=== PATIENT | female | born 1995 | race Caucasian/White ===

== ENCOUNTER 2017-10-26 15:35 | Day surgery (SDC) | payer MEDICAID, SELFPAY ==
[2017-10-26] VITALS (7 sets, daily range): BP systolic 102–122; BP diastolic 53–74; PULSE 70–99; RESP 16–18; TEMP 36.7–36.8; O2SAT 98–100; BMI 35.4
--- NOTE | 2017-10-26 16:00 | POC_PTH ---
PATIENT: ANDREA WINSLOW [place] [facility] [id number] AGE/SX: 22/F ROOM: RE10/26/[address]: Dr. Kelle Longoria MD : 1995 BED: DIS: 10/26/2017 SPEC #: [id number] RECD: 10/27/17 08:27 STATUS: CYN TYE #: [id number] TRICIA: 10/26/17 16:[address]: Kelle Longoria DEPT: SURGICAL PATHOLOGY RECD BY: Castillo Ho ENTERED: 10/27/17 09:35 SP TYPE: PROD CONC OTHR DR: Dr. Tre Castle MD Tissues: Product of conception, NOS Procedures: Surgery Specimen Level IV HEADER OPERATION: dilation and curettage, suction PRE-OP DIAGNOSIS: Incomplete missed TISSUE SUBMITTED: Products of conception MICROSCOPIC DIAGNOSIS Endometrium, curettage: Decidualized tissue, trophoblastic cells and rare chorionic villi consistent with products of conception. AM:maris 10/28/17 MICROSCOPIC DESCRIPTION Slides are reviewed. GROSS DESCRIPTION Received in fixative is one container labeled with the patient's name and designated products of conception. The specimen consists of multiple irregular fragments of pink-dyer soft tissue that in aggregate measure 8 x 7 x 0.8 cm. parts are not grossly recognized. Business Management Analyst portions are submitted in two cassettes. / AM:maris 10/27/17 TC:5 CPT: 28069
[2017-10-26 16:18] LABS: Glucose 155 mg/dL (74-106)
[2017-10-26 16:22] LABS: Hemoglobin 12.2 g/dl (12.0-15.0); Mean Corpuscular Hgb 27.5 pg (27.0-32.0); Mean Corpuscular Volume 83.5 fL (81-99); Mean Platelet Vol. 10.2 fl (6.2-12.0); Platelet Count 290 K/mm3 (150-450); RBC Distribution Width CV 13.1 % (11.6-14.6); RBC Distribution Width SD 39.3 fl (35.1-43.9); Red Blood Count 4.43 M/mm3 (4.2-5.4); White Blood Count 7.6 K/mm3 (4.4-11.0)
[2017-10-26 16:24] LABS: Scan Indicated on CBC? Y/N NO
[2017-10-26] MEDS: Doxycycline 100 MG CAPSULE PO (16:24)
[2017-10-26] MEDS: Ketorolac 60 MG/2 ML Vial IM (16:24)
--- NOTE | 2017-10-26 16:58 | PCM.DC.D&C ---
Discharge Diet: No Restrictions Discharge Activity: Return to Normal Activity, May Shower, May Take a Tub Bath - in 2 weeks. May resume sexual activity in: 2 weeks Call your doctor if you observe: Fever of 101 or Higher, Inability to urinate, Using more than one pad per hour, Dizziness, Uncontrolled pain Allergies/Adverse Reactions: Allergies No Known Allergies Allergy (Verified 06/03/17 13:32) Medications to take at Discharge Metformin HCl [Glucophage] 2,000 mg PO BID 06/03/17 Hydrocodone/Acetaminophen [[place] 5-325 Tablet] 1 each PO 10/26/17 Insulin NPH Human 10 units SC BID 10/26/17 Novolog Flexpen 8 units SC TIDCM 10/26/17 Primary Care Physician: Tre Castle MD [Primary Care Provider] - Please Follow Up With: Kelle Longoria MD - [phone] When: 2-4 weeks or as needed
--- NOTE | 2017-10-26 17:03 | OP.PCM_ITS ---
Report of Operation Date of Procedure: 10/26/17 Pre-Operative Diagnosis: Incomplete spontaneous . 8 weeks gestational age Post-Operative Diagnosis: Same Surgery/Procedure Performed:: Suction dilation and curettage Description of Surgical Findings:: Normal-appearing cervix and vagina, heterogeneous debris from the uterus reprographics associate: Chloe humphries [email or web address] Type of Anesthesia:: MAC/Supplemental/Local Anesthesiologist: Darlin Smith Special Medications: none Specimen's removed: Endometrial curettings Drains: None Estimated Blood Loss (mL): 10 cc Fluids Replaced: 300cc lr Description of Procedure: The patient was taken to the operating room where she was prepped and draped in a dorsolithotomy position. A bimanual examination was done and confirmed the uterus to be 6 weeks size and anteverted. A weighted speculum was placed in the vagina and the anterior lip of the cervix was grasped with a single-tooth tenaculum. The cervix was dilated serially. A 8 mm suction curette was placed to the uterine fundus and the suction was created. Several passes were made to remove a moderate amount of organized clots and what appeared to be products of conception. When minimal tissue was returning a gentle sharp curettage was then done of the uterine cavity. The uterine cry was appreciated and another gentle pass was made with the suction curette. At this point there is no active bleeding from the uterus and minimal blood and no further products of conception were removed. The instruments removed from the cervix and the cervix was observed and no active bleeding was identified. The tenaculum was removed off the cervix and hemostasis of the tenaculum site was assured. Made of the instruments removed from the vagina and the vaginal sweep was completed by me. Sponge and needle counts were correct. The patient was taken to the recovery room in stable condition. Findings: 6 week size uterus, normal cervix and vagina. Specimen: Products of conception Grafts/Implants Used: none - Complications none - Admit VTE Documentation VTE Present on Admission: No VTE Mechan Device Prophylaxis: SCD's VTE Pharm Prophylaxis ordered?: No Reason prophylaxis not ordered:: Procedure Not Indicated
== END 2017-10-26 17:50 | disposition home or self-care (01) ==
LOC: SDC 15:35 → AC 15:36
PROVIDERS: Family Provider Internal Medicine; PCP Internal Medicine; Visit Provider Obstetrics & Gynecology
PROC: (CPT 59812; principal; 2017-10-26 15:45)
DX: O03.4 Incomplete spontaneous abortion without complication (principal); E11.9 Type 2 diabetes mellitus without complications; E66.9 Obesity, unspecified; Z68.35 Body mass index [BMI] 35.0-35.9, adult; Z79.4 Long term (current) use of insulin; Z79.84 Long term (current) use of oral hypoglycemic drugs; F17.200 Nicotine dependence, unspecified, uncomplicated
CPT/HCPCS: 01965; 59812; 82947; 85027; 86850; 86900; 88305; J7120

== ENCOUNTER 2018-08-16 16:43 | Emergency (ER) | payer MEDICAID, SELFPAY ==
[2018-08-16 16:44] VITALS: BP 121/96; PULSE 114; RESP 18; TEMP 37.2; O2SAT 98; BMI 31.1
[2018-08-16] MEDS: Ondansetron 4 MG/2 ML Vial IV (17:35)
[2018-08-16] MEDS: 0.9% Normal Saline 1,000 ML 1000 ML IV (17:35)
[2018-08-16 17:40] VITALS: BP 124/93; PULSE 83; RESP 10; O2SAT 98
[2018-08-16 17:46] LABS: Absolute Lymphocyte Count 3.99 X10^3/ul (0.83-4.51); Basophil# 0.03 X10^3/uL; Basophil% 0.3 % (0-1); Eosinophil# 0.08 X10^3/uL; Eosinophils% 0.9 % (0-5); Hematocrit 45.6 % (37-47); Lymphocyte # 3.99 X10^3/ul (4.0); Lymphocyte % 44.5 % (19-41); Mean Corp Hgb Conc 32.9 g/gl (32-36); Mean Corpuscular Hgb 27.1 pg (27.0-32.0); Mean Corpuscular Volume 82.5 fL (81-99); Monocyte# 0.87 X10^3/uL; Monocyte% 9.7 % (0-10); Neutrophil # 3.98 X10^3/uL (2.7-7.7); Neutrophil % 44.4 % (47-70); Platelet Count 302 K/mm3 (150-450); RBC Distribution Width CV 13.6 % (11.6-14.6); RBC Distribution Width SD 40.9 fl (35.1-43.9); Red Blood Count 5.53 M/mm3 (4.2-5.4)
--- NOTE | 2018-08-16 17:50 | ED.DCSUM_ITS ---
- ER Visit Summary Date of Service: 08/16/18 Chief Complaint: [Hyperglycemia] History of Present Illness: The patient is a 22 F [presents to the emergency department with elevated blood sugars. Patient states that she was not feeling well today and that she had vomiting x3 and about 6 episodes of watery stool. Patient today has been feeling shaky and just wanting to sleep. Patient states that she stopped taking her diabetic medication 6 months ago. Patient normally on Humalog as well as metformin and NovoLog. Patient states that she lost a baby and that got her down and feeling depressed and so she stopped taking her medications. Patient denies feeling suicidal or wanting to harm herself. She denies any auditory or visual hallucinations. Last menstrual period was last week. Patient describes decreased urine output.] Physical Examination: [HEENT-PERRLA, EOMI. Cranial nerves II through XII grossly intact. TMs clear. Mucous membranes moist. No adenopathy. Cardiovascular-regular rate and rhythm without murmur or ectopy Lungs-clear to auscultation, chest wall stable without crepitus or subcu emphysema Abdomen-normoactive bowel sounds, soft, nontender, no rebound or rigidity, no peritoneal signs. Extremities-intact ?4, normal range of motion, normal pulses, atraumatic] Test Results: [CBC with differential showed a white count 9.0, hemoglobin 15, hematocrit 45.6, placed 302. Chemistries unremarkable. Glucose was 276. Urinalysis was unremarkable. Acetone was negative.] Emergency Department Course and Treatment: [Patient was given a liter normal same fluid bolus. Patient was advised to take her medications. Patient states that she just had them filled last week and has the insulin at home as well as the metformin. Patient will be given a referral to primary care physician alternative medicine practitioner for no doc.] Treatment Plan: [Patient advised on the importance of managing her blood glucose and will be referred to primary care physician alternative medicine practitioner for no doc for follow-up .] Disposition: [Discharged home in stable condition] Impression: [Hyperglycemia-noncompliant with medication Viral gastroenteritis] This note was generated with [employer] software. It may contain incorrect words, spelling, and punctuation that were not noted in review of the chart prior to signing ED Disposition - Plan for ED Patient: Referrals: Care Physician,No Primary [Primary Care Provider] -
[2018-08-16 17:52] LABS: Mucous, Urine 0 SEEN /hpf (<or=2+); Red Blood Cells-Urine 0 SEEN /hpf (0-5); White Blood Cells 0 SEEN /hpf (0-5)
[2018-08-16 17:54] LABS: Anion Gap 6 (5-15); BUN 15 mg/dL (7-18); BUN/Creat Ratio 21.4 RATIO (10-20); Calcium,Total 9.3 mg/dL (8.5-10.1); Chloride 102 mmol/L (98-107); EST Glomerular Filtration Rate 110 mL/min (>60); Est Glom Filt Rate - Afr Amer 133 mL/min (>60); Estimated Creatinine Clearance 127.17 ml/min; Glucose 276 mg/dL (74-106); Potassium 3.8 mmol/L (3.5-5.1); Sodium Level 135 mmol/L (136-145)
[2018-08-16 17:54] LABS: Color, Urine Straw (Yellow); Glucose, Dipstick 1000 mg/dl (Normal); Ketone-Dipstick 5 mg/dl (Negative); Leukocyte Esterase-Dipstick Negative /ul (Negative); Nitrite-Dipstick Negative (Negative); Occult Blood-Urine Negative /ul (Negative); Protein-Dipstick Negative (Negative); Urine Bilirubin Dipstick Negative (Negative); Urine Clarity Clear (Clear); Urine Urobilinogen Normal (Normal)
[2018-08-16 17:55] LABS: POSITIVE COUNT NO; POSITIVE DIFFERENTIAL NO; POSITIVE MORPHOLOGY NO
[2018-08-16 18:06] LABS: Bacteria RARE /hpf (None Seen); Squamous Epithelial Cells - UA 0-5 SEEN /hpf (5-10); Yeast-Urine RARE /hpf (None Seen)
--- NOTE | 2018-08-16 18:19 | ED.DEP ---
ED Disposition - Plan for ED Patient: Instructions: ED Hyperglycemia Diabetic, ED Gastroenteritis Viral Prescriptions: Ondansetron [Zofran Odt] 4 mg PO Q8H PRN PRN #10 tab PRN Reason: Nausea Referrals: Care Physician,No Primary [Primary Care Provider] - Johnnie Conti MD [STAFF PHYSICIAN] - 3-5 Days
[2018-08-16 18:37] VITALS: BP 120/91; PULSE 85; RESP 20; O2SAT 100
[2018-08-16 19:12] LABS: Pregnancy, Serum, hCG Quali. NEGATIVE Negative (0-9 Nonpreg)
== END 2018-08-16 18:39 | disposition home or self-care (01) ==
PROVIDERS: Emergency Provider Emergency Medicine
DX: E11.65 Type 2 diabetes mellitus with hyperglycemia (principal); T38.3X6A Underdosing of insulin and oral hypoglycemic [antidiabetic] drugs, initial encounter; Z91.138 Patient's unintentional underdosing of medication regimen for other reason; Y92.9 Unspecified place or not applicable; Z79.4 Long term (current) use of insulin; A08.4 Viral intestinal infection, unspecified; Z72.0 Tobacco use
CPT/HCPCS: 80048; 81001; 82009; 84703; 85025; 96361; 96374; 99284; J7030; A4216; J2405

== ENCOUNTER 2018-09-22 16:27 | Emergency (ER) | payer MEDICAID, SELFPAY ==
[2018-09-22 16:27] VITALS: BP 125/89; PULSE 95; RESP 16; TEMP 36.7; O2SAT 98; BMI 15.7
--- NOTE | 2018-09-22 16:47 | ED.DCSUM_ITS ---
- ER Visit Summary Date of Service: 09/22/18 Chief Complaint: Dysuria History of Present Illness: The patient is a 23 F who presents with dysuria that has been getting worse over the past week. Patient states that has gotten worse over the past couple days. Patient states she has burning when she urinates. Patient admits to some mild white vaginal discharge that is thick. Patient is unsure if she has a urinary tract infection or yeast infection. Patient does admit to some urinary frequency. She admits to some nausea but denies any vomiting. Physical Examination: Vital signs are stable. Patient is afebrile. Patient is in no acute distress. Oral mucosa is pink and moist. Neck is supple. Trachea is midline. Heart was regular rate and rhythm. Lungs are clear and equal bilateral. Abdomen is soft. Bowel sounds are normal. There is suprapubic tenderness. There is no rebound or guarding noted. Cranial nerves II through XII are intact. There are no focal motor or sensory deficits noted. Test Results: Urinalysis and urine hCG were obtained. Urinalysis showed leukocyte esterase of 500 with 25-50 white blood cells. Urine hCG was negative. Emergency Department Course and Treatment: Patient was given a prescription for Bactrim. Patient was also given a prescription for Diflucan to take after she is done with the Bactrim given that she is diabetic and likely prone to vaginal candidiasis after antibiotic treatment. Patient was instructed to follow-up with her primary care physician in 5-7 days. Patient understood and was agreeable with the plan. All questions were answered. Disposition: Discharge home Impression: Urinary tract infection This note was generated with [employer] dictation software. It may contain incorrect words, spelling, and punctuation that were not noted in review of the chart prior to signing ED Disposition - Plan for ED Patient: Disposition: Home or Assisted Living Diagnosis: Urinary tract infection Instructions: ED UTI Cystitis Female Prescriptions: Fluconazole [Diflucan] 150 mg PO X1 1 Days #1 tab Smz/Tmp Ds [Bactrim Ds] 1 tab PO BID #6 tab Referrals: Care Physician,No Primary [Primary Care Provider] - 5-7 Days
[2018-09-22 16:54] LABS: Bacteria 0 SEEN /hpf (None Seen); Mucous, Urine 0 SEEN /hpf (<or=2+)
[2018-09-22 17:01] LABS: Internal QC Validated? YES +Cl - CLEAR BKGD; Pregnancy, Urine Negative Negative
[2018-09-22 17:07] LABS: Color, Urine Yellow (Yellow); Glucose, Dipstick 1000 mg/dl (Normal); Ketone-Dipstick 50 mg/dl (Negative); Leukocyte Esterase-Dipstick 500 /ul (Negative); Nitrite-Dipstick Negative (Negative); Occult Blood-Urine 250 /ul (Negative); Protein-Dipstick 30 mg/dl (Negative); Urine Bilirubin Dipstick Negative (Negative); Urine Clarity Cloudy (Clear); Urine Urobilinogen Normal (Normal)
[2018-09-22 17:08] LABS: Red Blood Cells-Urine 10-25 SEEN /hpf (0-5); Squamous Epithelial Cells - UA 5-10 SEEN /hpf (5-10); White Blood Cells 25-50 SEEN /hpf (0-5)
== END 2018-09-22 18:08 | disposition home or self-care (01) ==
PROVIDERS: Emergency Provider Emergency Medicine
DX: N39.0 Urinary tract infection, site not specified (principal); E11.9 Type 2 diabetes mellitus without complications; Z79.4 Long term (current) use of insulin; Z72.0 Tobacco use
CPT/HCPCS: 81001; 81025; 99282

== ENCOUNTER 2018-09-25 22:26 | Emergency (ER) | payer MEDICAID, SELFPAY ==
[2018-09-25 22:27] VITALS: BP 105/72; PULSE 89; RESP 15; TEMP 36.6; BMI 32.4
[2018-09-25 23:19] LABS: Color, Urine Yellow (Yellow); Glucose, Dipstick 1000 mg/dl (Normal); Ketone-Dipstick 15 mg/dl (Negative); Leukocyte Esterase-Dipstick 500 /ul (Negative); Nitrite-Dipstick Negative (Negative); Occult Blood-Urine 250 /ul (Negative); Protein-Dipstick 30 mg/dl (Negative); Urine Bilirubin Dipstick Negative (Negative); Urine Clarity Sl. Cloudy (Clear); Urine Urobilinogen 1 mg/dl (Normal)
[2018-09-25 23:27] LABS: Red Blood Cells-Urine 10-25 SEEN /hpf (0-5); White Blood Cells 25-50 SEEN /hpf (0-5)
[2018-09-25 23:28] LABS: Bacteria 1+ /hpf (None Seen); Mucous, Urine 1+ /hpf (<or=2+); Squamous Epithelial Cells - UA 0-5 SEEN /hpf (5-10)
--- NOTE | 2018-09-25 23:55 | ED.VISSUMM ---
- ER Visit Summary Date of Service: 09/25/18 Chief Complaint: UTI History of Present Illness: The patient is a 23 F with dysuria and frequency for the past 2 weeks. She was seen in the ER on the for the same. She was given 3-day course of Bactrim for UTI and states she will has 1 dose left. She presents with increased super pubic pain and continued dysuria and frequency. She denies fever. She denies back pain. Patient is a diabetic. She states she does not check her blood sugars. Physical Examination: Vital signs unremarkable. Patient is lying in bed no acute distress. Heart is regular rate and rhythm. Lungs sounds are clear. Abdomen is soft with suprapubic tenderness to palpation. No guarding or rebound. Back examination was no CVA tenderness. Test Results: Urinalysis tonight shows 25-50 white cells, 10-25 RBCs, 1+ bacteria. She has 15 ketones. Urine is essentially unchanged when compared to sample from 3 days ago. BG T is 265. Emergency Department Course and Treatment: Patient is given a liter IV fluids along with a dose of IV Rocephin. Urine tonight is sent for culture. She is given Pyridium for pain. She will be given a course of Macrobid. If her urine culture shows this would not be effective she will receive a phone call and appropriate medication adjustments will be made. She is referred to local primary care physician for establishment of care. Treatment Plan: [] Disposition: Discharge Impression: Cystitis This note was generated with [employer] dictation software. It may contain incorrect words, spelling, and punctuation that were not noted in review of the chart prior to signing ED Disposition - Plan for ED Patient: Referrals: Care Physician,No Primary [Primary Care Provider] -
[2018-09-26] MEDS: Ceftriaxone 1 GM/50 ML BAG IV (00:04)
[2018-09-26] MEDS: Phenazopyridine 95 MG Tablet 190 MG PO (00:09)
[2018-09-26] MEDS: 0.9% Normal Saline 1,000 ML 1000 ML IV (00:09)
[2018-09-26 00:11] LABS: Bedside Glucose 265 mg/dL (70-110)
--- NOTE | 2018-09-26 00:44 | ED.DEP ---
ED Disposition - Plan for ED Patient: Disposition: Home or Assisted Living Instructions: ED UTI Cystitis Female Prescriptions: Nitrofurantoin Macrocrystals [Macrobid] 100 mg PO Q12 #14 capsule Phenazopyridine HCl [Pyridium] 200 mg PO BID PRN PRN #10 tablet PRN Reason: Pain Referrals: Matthew Finney MD [STAFF PHYSICIAN] - 1-2 Weeks
[2018-09-26 02:05] VITALS: BP 105/78; PULSE 67; RESP 16
== END 2018-09-26 02:06 | disposition home or self-care (01) ==
PROVIDERS: Emergency Provider Emergency Medicine
DX: N30.90 Cystitis, unspecified without hematuria (principal); E11.9 Type 2 diabetes mellitus without complications; Z79.4 Long term (current) use of insulin; Z79.84 Long term (current) use of oral hypoglycemic drugs; Z72.0 Tobacco use
CPT/HCPCS: 81001; 82962; 87086; 87088; 96365; 99283; J7030

== ENCOUNTER 2019-01-12 12:15 | Day surgery (SDC) | payer MEDICAID, SELFPAY ==
--- NOTE | 2019-01-10 12:20 | PCM.HP.BLA ---
History and Physical Date of Admission: 01/10/19 Pre-Op History and Physical HPI: The patient is a 23 year old female presenting for pre-operative visit. She is scheduled for suction dilation and curettage, for 8 week missed , measuring 7 weeks size by crown-rump length on 01/12/19. Procedure discussed along with risks, benefits and complications. Other alternatives discussed for management. Consent form signed? Yes. PAST MEDICAL HISTORY Diagnosis Date ? Abnormal Pap smear of cervix 06/2017 ASCUS pap + HPV ? Asthma ? depression ? Diabetes mellitus type 2, uncontrolled, without complications ([facility]) Sees Endo: DANIEL Orourke ? GERD (gastroesophageal reflux disease) ? IBS (irritable bowel syndrome) ? Obesity (BMI 30-39.9) 10/05/2017 ? 10/2017 Pt states that she is 11 weeks ? Type II or unspecified type diabetes mellitus without mention of complication, not stated as uncontrolled PAST SURGICAL HISTORY Procedure Laterality Date ? EGD W/O BRSH SPECIMEN W/BX 01/02/14 minimal gastritis ? EGD W/O OR W/BRUSH/WASH 09/05/2014 EGD ? LAP CHOLECYSTECT/CHOLANGIOGRAPHY 01/16/14 normal IOC ? PAST SURGICAL HISTORY OF 2011 Ovarian cysts removed ? SURG RX INCOMPLETE ABORTN 10/26/2017 Suction D&C, bleeding and pain after cytotec Current Outpatient Medications Medication Sig Dispense Refill ? miSOPROStol (CYTOTEC) 200 mcg tablet Use 2 tablets vaginally as directed for [address] 2 tablets vaginally the morning of the procedure 2 tablet 0 ? doxycycline monohydrate (MONODOX) 100 mg capsule Take 1 capsule by mouth twice daily for 1 day. take one at bedtime after surgery and one the next morning with breakfast 2 capsule 0 ? ibuprofen (MOTRIN) 600 mg tablet Take 1 tablet by mouth every 6 hours as needed. FOR PAIN. 30 tablet 0 ? insulin lispro (HUMALOG) 100 unit/mL injection Inject 0-5 Units subcutaneously daily at bedtime. 1 Vial 1 ? insulin lispro (HUMALOG) 100 unit/mL injection Inject 1-5 Units subcutaneously w MEALS. 1 Vial 1 ? ciprofloxacin (CILOXAN) 0.3 % Use 4 Drops in the right ear twice daily. 1 Bottle 1 ? insulin NPH human (NOVOLIN N, HUMULIN N) injection Inject 8 Units subcutaneously twice daily with meals. 3 Vial 1 ? insulin NPH human (NOVOLIN N, HUMULIN N) injection Inject 8 Units subcutaneously before breakfast and 8 Units before dinner 2 Vial 1 ? multivitamin (CLASSIC ) 28 mg iron- 800 mcg tab(s) Take 1 tablet by mouth once daily. ? albuterol HFA (PROVENTIL HFA, VENTOLIN HFA) 90 mcg/actuation inhaler Inhale 2 Puffs as instructed every 4 hours as needed for Wheezing/Shortness of Breath. 1 Inhaler 0 ? Insulin [place], Disposable, (BD ULTRAFINE III MINI PEN) 31 gauge x 3/16 ndle USE WITH INSULIN PENS 4 TIMES DAILY 200 Each 5 ? blood sugar diagnostic (BLOOD GLUCOSE TEST) test strip Test blood glucose 8 times daily 200 Strip 5 ? Lancets lancets Test blood sugar(s) 8x daily. 200 Each 5 ? insulin syringe-needle U-100 (BD INSULIN SYRINGE ULTRA-FINE) 1 mL 31 gauge x 15/64 syrg 1 Each once daily. 100 Syringe 3 No current facility-administered medications for this visit. ALLERGIES: Metformin PERSONAL HISTORY: Social History Socioeconomic History Marital status: Single Spouse name: Not on file Number of children: 0 Years of education: 13 Highest education level: Not on file Social Needs Financial resource strain: Not on file Food insecurity - worry: Not on file Food insecurity - inability: Not on file Transportation needs - medical: Not on file Transportation needs - non-medical: Not on file Occupational History Occupation: unemployed Tobacco Use Smoking status: Current Some Day Smoker Packs/day: 0.20 Years: 2.00 Pack years: .4 Smokeless tobacco: Never Used Tobacco comment: 3 cigs a day Substance and Sexual Activity Alcohol use: Not Currently Comment: once or twice a month Drug use: No Sexual activity: Yes Partners: Male control/protection: None Other Topics Concerns: Not on file Social History Narrative Merged History Encounter FAMILY HISTORY: FAMILY HISTORY Problem Relation Age of Onset ? Cancer Maternal Grandmother started off with lung cancer now ? Breast Cancer Maternal Grandmother ? Heart Maternal Grandfather now ? Diabetes Maternal Grandfather ? Heart Paternal Grandmother ? Hypertension Paternal Grandmother ? Diabetes Paternal Grandmother ? other (strokes) Paternal Grandmother ? Hypertension Paternal Grandfather ? Heart Paternal Grandfather ? Diabetes Paternal Grandfather ? other (borderline diabetes) Paternal Grandfather ? other (? PR) Paternal Grandfather ? Diabetes Mother ? Heart Mother extra valve ? Asthma Father ? Asthma Brother ? Breast Cancer Maternal Aunt ? Colon Cancer No Family History REVIEW OF SYMPTOMS: GENERAL: denies fevers or chills ENDOCRINOLOGY: has not been on steroids Cardiology : denies palpitations or chest pain Respiratory: denies SOB or cough Hematology: denies history of prolonged bleeding or easy bruising or VTE Allergy: Denies history of personal or family history of allergy to anesthesia PHYSICAL EXAMINATION: VITALS: Blood pressure 110/62, height 5' 6 (1.676 m), weight 192 lb (87.1 kg), last menstrual period 11/10/2018. GENERAL: The patient is well nourished, well hydrated in no acute distress. , The patient is oriented to time, place, and person. NECK: Supple. No lynphadenopathy, normal thyroid, no thyromegaly. LUNGS: Clear to auscultation bilaterally. no wheezes, rhonchi or rales HEART: Regular rate and rhythm, Normal heart sounds and No murmurs or gallops GENITALIA: Normal external genitalia, Urethral meatus normal, Bladder nontender, normal vagina and normal vaginal tone, normal cervix, normal adnexa without masses or tenderness, perineum WNL and uterus mobile, nontender, approximate week size IMPRESSION: 23 YOF @ 8w5d on 01/10/19 by LMP w/ 7 week size embryo w/o cardiac activity, spontaneous missed PLAN: The risks/benefits/alternatives and personal involved for the planned suction dilation and curettage were reviewed with the patient. Her questions were answered to her satisfaction and she desires to proceed. Consent was signed. I reviewed with her postop instructions and expectations. I have reviewed and updated past medical and surgical history, medications and allergies This H&P was completed in my office on 01/10/19 Kelle Longoria M.D.
[2019-01-12 12:51] LABS: Hematocrit 41.2 % (37-47); Hemoglobin 14.2 g/dl (12.0-15.0); Mean Corp Hgb Conc 34.5 g/gl (32-36); Mean Corpuscular Volume 81.1 fL (81-99); Mean Platelet Vol. 10.5 fl (6.2-12.0); Platelet Count 381 K/mm3 (150-450); RBC Distribution Width CV 13.5 % (11.6-14.6); RBC Distribution Width SD 39.1 fl (35.1-43.9); Red Blood Count 5.08 M/mm3 (4.2-5.4); White Blood Count 10.5 K/mm3 (4.4-11.0)
[2019-01-12] MEDS: Acetaminophen 500 MG Tablet 1000 MG PO (12:54)
[2019-01-12] MEDS: Ketorolac 30 MG/ML Syringe IV (12:54)
[2019-01-12] MEDS: Doxycycline 100 MG CAPSULE PO (12:55)
[2019-01-12 12:58] VITALS: BP 120/76; PULSE 93; RESP 14; TEMP 37.9; O2SAT 100; BMI 31.6
[2019-01-12 12:59] LABS: Anion Gap 5 (5-15); BUN 8 mg/dL (7-18); Calcium,Total 9.3 mg/dL (8.5-10.1); Chloride 105 mmol/L (98-107); Creatinine, Serum 0.57 mg/dL (0.55-1.02); EST Glomerular Filtration Rate 139 mL/min (>60); Est Glom Filt Rate - Afr Amer 169 mL/min (>60); Glucose 135 mg/dL (74-106); Potassium 3.9 mmol/L (3.5-5.1); Scan Indicated on CBC? Y/N NO; Sodium Level 137 mmol/L (136-145)
[2019-01-12 13:20] LABS: Bedside Glucose 127 mg/dL (70-110)
--- NOTE | 2019-01-12 14:05 | POC_PTH ---
PATIENT: ANDREA WINSLOW LOC: [facility] – [place] U#:[id number] AGE/SX: 23/F ROOM: RE01/12/[address]: Dr. Kelle Longoria MD : 1995 BED: DIS: 01/12/2019 SPEC #: [id number] RECD: 01/12/19 16:45 STATUS: CYN GRAHAMJessica #: [id number] TRICIA: 01/12/19 14:[address]: Kelle Longoria DEPT: SURGICAL PATHOLOGY RECD BY: Castillo Ho ENTERED: 01/13/19 11:33 SP TYPE: PROD CONC OTHR DR: Dr. Tre Castle MD Tissues: Product of conception, NOS Procedures: Surgery Specimen Level IV HEADER OPERATION: Dilation and curettage, suction PRE-OP DIAGNOSIS: Missed TISSUE SUBMITTED: Products of conception MICROSCOPIC DIAGNOSIS Endometrium, curettage: Chorionic villi, decidualized stroma and trophoblastic cells consistent with products of conception. AM:maris 01/16/19 MICROSCOPIC DESCRIPTION Slides are reviewed. GROSS DESCRIPTION Received in fixative is one container labeled with the patient's name and designated products of conception. The specimen consists of multiple irregular fragments of light dyer soft tissue that in aggregate measure 6 x 6 x 0.8 cm. parts are not grossly recognized. Histology Aide portions are submitted in one cassette. / AM:maris 01/13/19 TC:5 CPT: 94565
--- NOTE | 2019-01-12 15:02 | DCINST_ITS ---
Discharge Diet: No Restrictions Discharge Activity: Return to Normal Activity, May Shower, May Take a Tub Bath - in 1 weeks. May resume sexual activity in: 1-2 weeks Call your doctor if your incision/area has: Continuous Slow Oozing, Sudden Increased Bleeding, Foul Smelling Discharge Call your doctor if you observe: Fever of 101 or Higher, Using more than one pad per hour Allergies/Adverse Reactions: Allergies No Known Allergies Allergy (Verified 01/11/19 08:41) Medications to take at Discharge metFORMIN HCl [Glucophage] 2,000 mg PO DAILY 06/03/17 Primary Care Physician: Tre Castle MD [Primary Care Provider] - Test Results: Test results from this visit will be discussed in further detail at your follow- up appointment, if applicable. Please Follow Up With: Kelle Longoria MD - [phone] When: 2-4 weeks or as needed
--- NOTE | 2019-01-12 15:16 | PCM.OPRPT ---
Report of Operation Date of Procedure: 01/12/19 Pre-Operative Diagnosis: missed spontaneous , 8 weeks Post-Operative Diagnosis: Same Surgery/Procedure Performed:: Suction dilation and curettage Description of Surgical Findings:: Normal-appearing cervix and vagina. manufacturers service representative: None Type of Anesthesia:: MAC/Supplemental/Local Anesthesiologist: Alyx Gonzales Special Medications: None Specimen's removed: Products of conception Drains: none Estimated Blood Loss (mL): 20 Fluids Replaced: 1000 cc Description of Procedure: The patient was taken to the operating room where she was prepped and draped in a dorsolithotomy position. A bimanual examination was done and confirmed the uterus to be 8 weeks size and anteverted. A weighted speculum was placed in the vagina and the anterior lip of the cervix was grasped with a single-tooth tenaculum. The cervix was dilated serially. A 9 mm suction curette was placed to the uterine fundus and the suction was created. Several passes were made to remove clots and products of conception. When minimal tissue was returning a gentle sharp curettage was then done of the uterine cavity. The uterine cry was appreciated and another gentle pass was made with the suction curette. At this point there is no active bleeding from the uterus and minimal blood and no further products of conception were removed. The instruments removed from the cervix and the cervix was observed and no active bleeding was identified. The tenaculum was removed off the cervix and hemostasis of the tenaculum site was assured. Made of the instruments removed from the vagina and the vaginal sweep was completed by me. Sponge and needle counts were correct. The patient was taken to the recovery room in stable condition. Blood type was A+ Findings: 8 week size uterus, normal cervix and vagina. Specimen: Products of conception Grafts/Implants Used: none - Complications none - Admit VTE Documentation VTE Present on Admission: No VTE Mechan Device Prophylaxis: SCD's VTE Pharm Prophylaxis ordered?: No Reason prophylaxis not ordered:: Procedure Not Indicated
[2019-01-12 15:20] VITALS: BP 120/79; BP 96/53; PULSE 97; RESP 16; TEMP 36.8; O2SAT 96
[2019-01-12 15:25] VITALS: BP 120/79; BP 92/53; PULSE 97; RESP 18; O2SAT 95
[2019-01-12 15:30] VITALS: BP 120/79; BP 90/58; PULSE 88; RESP 16; O2SAT 95
[2019-01-12 15:35] VITALS: BP 120/79; BP 94/53; PULSE 88; RESP 18; TEMP 36.6; O2SAT 96
[2019-01-12 16:30] VITALS: BP 120/79
== END 2019-01-12 16:38 | disposition home or self-care (01) ==
LOC: SDC 12:15 → AC 12:17
PROVIDERS: Family Provider Internal Medicine; PCP Internal Medicine; Referring Provider Obstetrics & Gynecology; Visit Provider Obstetrics & Gynecology
PROC: (CPT 59820; principal; 2019-01-12 13:50)
DX: O02.1 Missed abortion (principal); E11.9 Type 2 diabetes mellitus without complications; K58.9 Irritable bowel syndrome, unspecified; J45.909 Unspecified asthma, uncomplicated; K21.9 Gastro-esophageal reflux disease without esophagitis; O99.331 Smoking (tobacco) complicating pregnancy, first trimester; F17.210 Nicotine dependence, cigarettes, uncomplicated; E66.9 Obesity, unspecified; Z68.31 Body mass index [BMI] 31.0-31.9, adult; Z79.84 Long term (current) use of oral hypoglycemic drugs
CPT/HCPCS: 01965; 59820; 36415; 80048; 82962; 85027; 86850; 86900; 88305; J7120; J2405

== ENCOUNTER 2019-02-24 09:48 | Emergency (ER) | payer MEDICAID, SELFPAY ==
[2019-02-24 09:50] VITALS: BP 125/79; PULSE 80; RESP 17; TEMP 37; O2SAT 99; BMI 32.9
--- NOTE | 2019-02-24 09:59 | RAD_ITS ---
STUDY: X-RAY - LEFT KNEE REASON FOR EXAM: Female, 23 years old. Pain for a few days TECHNIQUE: 4 view(s) of the knee. COMPARISON: None. FINDINGS: Normal visualized distal femur. Normal visualized proximal tibia and fibula. Normal proximal tibiofibular articulation. Normal medial femorotibial compartment. Normal lateral femorotibial compartment. Normal patellofemoral articulation. The soft tissue structures are unremarkable. RAD/Knee 4 or More Views IMPRESSION: Normal x-ray examination of the knee. No acute displaced fracture, or traumatic subluxation based on current assessment. Electronically Signed: Cesar Singh MD at 10:34 EDT Tel [phone], Service support ,
--- NOTE | 2019-02-24 10:00 | ED.VIS.INJ ---
History of Present Illness Chief Complaint: Lower Extremity Injury Detail of Chief Complaint: The pain Wednesday injury yesterday Informant: Patient Onset: Yesterday, Days Mechanism/Context: Blunt Injury, Work Related Quality of Pain: Dull, Aching Location: Left knee Current Severity: Mild Maximum Severity: Severe Worsened by: Movement and ambulation Relieved by: Nonuse Associated Symptoms: Negative for: Parasthesias, Weakness, Loss of function, Inability to ambulate, Loss of consciousness, Amnesia Narrative: Patient is a 23-year-old woman who states her left knee began to hurt Wednesday. She slipped hitting a spool at work. She localizes the pain to the left knee. She denies history of prior knee injury. There is no history of gout or pseudogout. She denies fever, chills night sweats. She is on no immunosuppressive agents. Patient has not taken anything for the pain prior to arrival. Tetanus Immunization: 5-10 years Prior similar symptoms: No Recent Illness/Hospitalization: No - Past Medical History (1) No significant past medical history Status: Acute Past Medical History - Allergies and Home Meds Allergies/Adverse Reactions: Allergies No Known Allergies Allergy (Verified 02/24/19 09:49) Primary Care Physician: Tre Castle MD [Primary Care Provider] - Past Medical History: None Surgical History: no surgical history Lives: With Family Smoking Status: Light Smoker (<10/day) Alcohol: None Drugs: None Review of Systems General: Denies: Chills, Fever, Malaise, Subjective, Sweats, Weight loss, - ENT: Denies: Rhinorrhea, Sore throat Cardiovascular: Denies: Chest pain, Palpitations Respiratory: Denies: Dyspnea, Cough, Sputum, Dyspnea on exertion Gastrointestinal: Denies: Nausea, Vomiting Genitourinary: Reports: -. Denies: Dysuria, Hematuria, Frequency Musculoskeletal: Reports: Swelling, Extremity Pain. Denies: Myalgias, Arthralgias, Neck pain, Back pain Skin: Reports: - - Evidence of contusion left knee lateral joint line. Denies: Rash, Wounds Neurological: Denies: Headache, Weakness, Parasthesia, Numbness Hematologic: Denies: Easy bruising, Easy bleeding Physical Exam Vital Signs/Narrative: Vital Signs Temp Pulse Resp BP Pulse Ox 02/24/19 09:50 98.6 F 80 17 125/79 H 99 Inital Vital Signs reviewed: Yes General: Well nourished, Well developed Head: Normocephalic, Atraumatic Eyes: Perrl, EOMI. Negative for: Pale conjunctiva, Scleral icterus, - Neck: Nontender, Full ROM Cardiovascular: Regular rate, Regular rhythm, No murmurs, Normal S1 Respiratory: No distress, CTA bilaterally Extremeties: There is swelling in the left knee compared to the right. There is lateral joint line tenderness. There is no obvious effusion. Patella is not ballotable. There is valgus stress testing causes discomfort laterally without laxity. Sayra's test is negative. Modified Milli's test caused pain with no appreciable click. There is no penetration of the popliteal fossa. Skin: Normal color, Trauma Neurological: Alert, Oriented x3, Cranial nerves II-XII grossly intact, Normal Strength, Normal Sensation. Negative for: Normal Gait Psychological: Normal affect, Normal Mood Diagnostic/Tx/Re-eval Chest X-Ray - ED: Read by ED Physician, - - 4 view x-ray of the knee was interpreted by me at 1028. There is no fracture, subluxation, dislocation. Patella is appropriately aligned and positioned. There is no evidence of effusion. - Medical Decision Making With evidence of trauma and history of trauma with point tenderness x-ray was obtained to evaluate for fracture. Differential is contusion versus fracture. She did receive 500 mg of Naprosyn and one Bancroft tablet. With an unremarkable chest x-ray will treat as contusion. ED Disposition - Plan for ED Patient: Disposition: Home or Assisted Living Diagnosis: Contusion of left knee, initial encounter Prescriptions: Naproxen [Naprosyn] 500 mg PO BID #14 tab Transmission Status: Pending to [id number] Referrals: Tre Castle MD [Primary Care Provider] - 1 Week if not improving Additional Instructions: Your prescription was electronically transmitted to [facility] located on [facility]. Apply ice 20 to 30 minutes per application 6-8 times a day. You may be sore for several more days.
[2019-02-24] MEDS: Naproxen 500 MG Tablet PO (10:04)
[2019-02-24] MEDS: HYDROmorphone 1 MG/ML Syringe IM (10:04)
--- NOTE | 2019-02-24 10:32 | ED.VISSUMM ---
- ER Visit Summary Date of Service: 02/24/19 Chief Complaint: [] History of Present Illness: The patient is a 23 F [] Physical Examination: [] Test Results: [] Emergency Department Course and Treatment: [] Treatment Plan: [] Disposition: [] Impression: [] This note was generated with [employer] dictation software. It may contain incorrect words, spelling, and punctuation that were not noted in review of the chart prior to signing ED Disposition - Plan for ED Patient: Disposition: Home or Assisted Living Diagnosis: Contusion of left knee, initial encounter Instructions: CONTUSION, Lower Extremity Prescriptions: Naproxen [Naprosyn] 500 mg PO BID #14 tab Transmission Status: Received by [id number] Referrals: Tre Castle MD [Primary Care Provider] - 1 Week if not improving Additional Instructions: Your prescription was electronically transmitted to [facility] located on [facility]. Apply ice 20 to 30 minutes per application 6-8 times a day. You may be sore for several more days.
[2019-02-24 10:53] VITALS: BP 116/81; PULSE 74; RESP 18
== END 2019-02-24 10:54 | disposition home or self-care (01) ==
LOC: ED 10:39
PROVIDERS: Emergency Provider Emergency Medicine; Family Provider Internal Medicine; PCP Internal Medicine
DX: S80.02XA Contusion of left knee, initial encounter (principal); W22.8XXA Striking against or struck by other objects, initial encounter; Y93.9 Activity, unspecified; F17.200 Nicotine dependence, unspecified, uncomplicated
CPT/HCPCS: 73564; 99284

== ENCOUNTER 2019-03-28 16:48 | Emergency (ER) | payer MEDICAID, OTHER, SELFPAY ==
[2019-03-28 16:49] VITALS: BP 110/73; PULSE 91; RESP 18; TEMP 36.2; O2SAT 99; BMI 32.5
[2019-03-28] MEDS: Morphine 4 MG/ML Syringe IV (18:26)
[2019-03-28] MEDS: Ondansetron 4 MG/2 ML Vial IV (18:26)
--- NOTE | 2019-03-28 18:31 | ED.VIS.GEN ---
History of Present Illness Chief Complaint: Abd Pain Informant: Patient Onset: Today - 11 AM Context: Sudden Onset Timing: Continuous, Waxes and wanes Quality: Pain Location: Right abdomen Current Severity: Moderate Maximum Severity: Severe Worsened by: Movement Relieved by: Nothing Associated Symptoms: Nausea Narrative: Patient is a 23-year-old female status post cholecystectomy [address] Barnhart who presents with right-sided abdominal pain. She denies vomiting or diarrhea. She denies fever, chills night sweats. She denies cough, shortness of breath or difficulty breathing. Denies chest pain. She denies food intolerance. She denies dysuria, frequency, urgency hematuria. She has history of renal ureterolithiasis. Last normal menses was 1.5 months ago. She states she has irregular periods. She has been twice with 2 miscarriages. She also has history ovarian cyst. She denies history of endometriosis. She denies vaginal bleeding or vaginal discharge. She was at a water park this past weekend. No are no bruises that she was aware of. Prior similar symptoms: No Recent Illness/Hospitalization: No - Past Medical History (1) No significant past medical history Status: Acute Past Medical History - Allergies and Home Meds Allergies/Adverse Reactions: Allergies No Known Allergies Allergy (Verified 03/28/19 16:49) Primary Care Physician: Tre Castle MD [Primary Care Provider] - Surgical History: cholecystectomy Lives: Spouse/ Significant Other Smoking Status: Light Smoker (<10/day) Alcohol: Rare Drugs: None Review of Systems General: Denies: Chills, Fever, Malaise, Sweats ENT: Denies: Rhinorrhea, Sore throat Cardiovascular: Denies: Chest pain, Palpitations Respiratory: Denies: Dyspnea, Cough, Dyspnea on exertion Gastrointestinal: Reports: Abdominal pain, Nausea. Denies: Vomiting, Diarrhea, Constipation, Melena, Hematochezia, -, - Genitourinary: Denies: Dysuria, Hematuria, Frequency Musculoskeletal: Denies: Myalgias, Arthralgias, Neck pain, Back pain, Swelling, Extremity Pain, -, - Skin: Denies: Rash, Wounds Neurological: Denies: Headache, Weakness, Parasthesia, Numbness Hematologic: Denies: Easy bruising, Easy bleeding Allergy: Denies: Uticaria, Swelling of the mouth Physical Exam Vital Signs/Narrative: Vital Signs Temp Pulse Resp BP Pulse Ox 03/28/19 16:49 97.2 F L 91 18 110/73 99 Inital Vital Signs reviewed: Yes General: Well nourished, Well developed, Obese, No Acute Distress Head: Normocephalic, Atraumatic Eyes: Perrl, EOMI. Negative for: Pale conjunctiva, Scleral icterus ENT: Moist mucous membranes, No rhinorrhea Neck: Supple, Nontender, No lymphadenopathy, No JVD Abdomen: Soft, Nondistended, Normal bowel sounds, No masses, Tender, Hypoactive bowel sounds. Negative for: Nontender, Guarding, Rebound tenderness, Hepatomegaly, Splenomegaly, Mass, Ventral hernia, Inguinal hernia, Umbilical hernia, Hendrix's sign Rectal: Deferred Back: Nontender, Normal Inspection Extremities: Nontender, No edema Skin: Normal color, No rash, No Trauma. Negative for: Cyanosis, Diaphoresis, Jaundice Neurological: Alert, Oriented x3, Cranial nerves II-XII grossly intact, Normal Strength, Normal Sensation Psychological: Normal affect, Normal Mood Diagnostic/Tx/Re-eval - Medical Decision Making Irregular menses and the fact that she is sexually active and is not using for control pain's test was ordered. This may represent atypical presentation of nephrolithiasis as well as appendicitis. Baseline blood work was ordered and she was medicated with Zofran for nausea and 4 mg of morphine for her pain. ED Disposition - Plan for ED Patient: Disposition: Home or Assisted Living Diagnosis: Abdominal pain in female Instructions: ABDOMINAL PAIN, Unknown Cause, (Female) Referrals: Tre Castle MD [Primary Care Provider] - 3-5 Days if not improving
[2019-03-28 18:36] LABS: Bacteria 0 SEEN /hpf (None Seen); Red Blood Cells-Urine 0 SEEN /hpf (0-5); White Blood Cells 0 SEEN /hpf (0-5)
[2019-03-28 18:37] LABS: Absolute Lymphocyte Count 4.19 X10^3/uL (0.83-4.51); Absolute Neutrophil Count 4.3 X10^3/uL (2.0-7.7); Basophil# 0.05 X10^3/uL; Basophil% 0.5 % (0-1); Eosinophil# 0.13 X10^3/uL; Eosinophils% 1.4 % (0-5); Hemoglobin 14.6 g/dL (12.0-15.0); Lymphocyte # 4.19 X10^3/ul (4.0); Lymphocyte % 45.3 % (19-41); Mean Corp Hgb Conc 33.2 g/dL (32-36); Mean Corpuscular Hgb 28.2 pg (27.0-32.0); Mean Corpuscular Volume 84.9 fL (81-99); Mean Platelet Vol. 10.6 fl (6.2-12.0); Monocyte# 0.55 X10^3/uL; Monocyte% 5.9 % (0-10); NRBC Flagged by Analyzer 0 % (0-5); Neutrophil # 4.32 X10^3/uL (2.7-7.7); Neutrophil % 46.8 % (47-70); Platelet Count 262 K/mm3 (150-450); RBC Distribution Width CV 12.3 % (11.6-14.6); Red Blood Count 5.18 M/mm3 (4.2-5.4); White Blood Count 9.3 K/mm3 (4.4-11.0)
[2019-03-28 18:43] LABS: Color, Urine Yellow (Yellow); Glucose, Dipstick Normal (Normal); Ketone-Dipstick 50 mg/dl (Negative); Leukocyte Esterase-Dipstick Negative /ul (Negative); Nitrite-Dipstick Negative (Negative); Occult Blood-Urine Negative /ul (Negative); Protein-Dipstick 15 mg/dl (Negative); Specific Gravity, Urine 1.025 (1.002-1.030); Urine Bilirubin Dipstick Negative (Negative); Urine Clarity Sl. Cloudy (Clear); Urine Urobilinogen Normal (Normal)
[2019-03-28 18:46] LABS: Internal QC Validated? YES +Cl - CLEAR BKGD; Pregnancy, Serum, hCG Quali. NEGATIVE Negative
[2019-03-28 18:49] LABS: Mucous, Urine 2+ /hpf (<or=2+); Squamous Epithelial Cells - UA 5-10 SEEN /hpf (5-10)
[2019-03-28 18:53] LABS: AST(SGOT) 15 U/L (15-37); Alanine Aminotransfer ALT/SGPT 30 U/L (13-56); Albumin, Serum 4.1 g/dL (3.2-5.0); Alkaline Phosphatase 69 U/L (45-117); Anion Gap 6 (5-15); BUN 11 mg/dL (7-18); BUN/Creat Ratio 18.2 RATIO (10-20); Calcium,Total 9.4 mg/dL (8.5-10.1); Chloride 105 mmol/L (98-107); EST Glomerular Filtration Rate 130 mL/min (>60); Est Glom Filt Rate - Afr Amer 157 mL/min (>60); Estimated Creatinine Clearance 131.22 ml/min; Globulin 4.2 g/dL (2.2-4.2); Glucose 128 mg/dL (74-106); Potassium 3.4 mmol/L (3.5-5.1); Protein, Total 8.3 g/dL (6.4-8.2); Sodium Level 139 mmol/L (136-145)
--- NOTE | 2019-03-28 19:32 | ED.DCSUM_ITS ---
- ER Visit Summary Date of Service: 03/28/19 Chief Complaint: [] History of Present Illness: The patient is a 23 F [] Physical Examination: [] Test Results: [] Emergency Department Course and Treatment: [] Treatment Plan: [] Disposition: [] Impression: [] This note was generated with [employer] dictation software. It may contain incorrect words, spelling, and punctuation that were not noted in review of the chart prior to signing ED Disposition - Plan for ED Patient: Disposition: Home or Assisted Living Diagnosis: Abdominal pain in female Instructions: ABDOMINAL PAIN, Unknown Cause, (Female) Prescriptions: Dicyclomine HCl [Bentyl] 20 mg PO TIDAC #20 cap Transmission Status: Pending to [id number] Referrals: Tre Castle MD [Primary Care Provider] - 3-5 Days if not improving
== END 2019-03-28 19:35 | disposition home or self-care (01) ==
PROVIDERS: Emergency Provider Emergency Medicine; Family Provider Internal Medicine; PCP Internal Medicine
DX: R10.9 Unspecified abdominal pain (principal); F17.200 Nicotine dependence, unspecified, uncomplicated; Z90.49 Acquired absence of other specified parts of digestive tract
CPT/HCPCS: 80053; 81001; 84703; 85025; 96374; 96375; 99283; A4216; J2405

== ENCOUNTER 2019-04-29 20:29 | Emergency (ER) | payer OTHER, MEDICAID, SELFPAY ==
[2019-04-29 20:29] VITALS: BP 120/82; PULSE 101; RESP 15; TEMP 36.7; O2SAT 99; BMI 32.4
[2019-04-29] MEDS: HYDROcodone Bitartrate/Apap 5/325 Tablet PO (20:57)
--- NOTE | 2019-04-29 20:57 | ED.DCSUM_ITS ---
- ER Visit Summary Date of Service: 04/29/19 Chief Complaint: Atraumatic left calf pain History of Present Illness: The patient is a 23 F as male history of [id number] diabetes. Patient states last several days she has had pain in her left calf is progressively worsened. She denies any falls injury or trauma. She herself is never had a blood clot. She denies any recent travel, surgery or immobilization. She is currently not . She did have a miscarriage several months ago. There is a family history of multiple family members with prior blood clots. She denies any chest pain. She denies any shortness of breath. She does smoke. She is not on any control medications. Physical Examination: Young female no distress vital signs stable afebrile. Pulse ox 99% on room air no signs of hypoxia. HEENT exam unremarkable. Neck nontender no lymphadenopathy. Lungs clear to auscultation bilaterally. Heart regular rhythm no murmur. Abdomen soft nontender. Extremities moves all 4. Neurovascular intact. Left calf tender to palpation the proximal third of the calf. Does appear to be fullness. There is no ecchymosis or bruising. No redness or warmth. Left foot is neurovascularly intact. DP pulses intact. Able to wiggle her toes. Normal dorsi plantarflexion. Normal touch sensation. Neurologic exam normal. Test Results: Noninvasive study is not available at this time. D-dimer is abnormal at 0.67. Emergency Department Course and Treatment: Ultrasound available therefore obtained a d-dimer. Patient was given a p.o. Young Harris for pain. Given the patient has atraumatic calf pain and family history of blood clots. And there is really no more significant alternative than this potentially being a blood clot she will be anticoagulated with Sub Q Lovenox. Return tomorrow to have a noninvasive study. This is been ordered in the computer. This is all been discussed the patient and family. Treatment Plan: Return tomorrow morning to have noninvasive study left lower extremity. Disposition: Discharge Impression: Acute atraumatic left calf pain rule out DVT History of diabetes This note was generated with [employer] software. It may contain incorrect words, spelling, and punctuation that were not noted in review of the chart prior to signing ED Disposition - Plan for ED Patient: Referrals: Tre Castle MD [Primary Care Provider] -
[2019-04-29 21:35] LABS: D-Dimer Quantitative (DVT/PE) 0.67 FEU/ug/m (0.27-0.49)
--- NOTE | 2019-04-29 21:36 | ED.RN ---
lab called with critical lab results. d dimer 0.67. Dr. vasquez made aware no new orders at this time
[2019-04-29 21:50] LABS: Internal QC Validated? YES +Cl - CLEAR BKGD; Pregnancy, Serum, hCG Quali. NEGATIVE Negative
--- NOTE | 2019-04-29 21:51 | ED.DEP ---
ED Disposition - Plan for ED Patient: Disposition: Home or Assisted Living Instructions: Dvt Referrals: Tre Castle MD [Primary Care Provider] - Additional Instructions: You may potentially have a blood clot in the left calf. This will be determined once you have the noninvasive study (ultrasound your left leg) tomorrow morning. Due to your family history and chance this could be a blood clot we will anticoagulate you on a Lovenox blood thinner shot tonight. He will return tomorrow to have the ultrasound done.
[2019-04-29] MEDS: Enoxaparin 100 MG/ML Syringe 90 MG SC (22:00)
[2019-04-29 22:01] VITALS: PULSE 84; RESP 18; O2SAT 98
--- NOTE | 2019-04-29 22:30 | ED.RN ---
pt mother carmencita called questioning rn about what happened with her daughter and why we sent her home with a blood clot. discussed with mother that no medical information could be given as the patient is an adult and permission will be needed. mother states she is outside calling hospitals to see if she can get an ultrasound tonight. I reviewed that we provided medication for the possibility of blood clot and she will be called tomorrow to come in for an appointment. The mother says my daughter is confused and she is in significant amount of pain. RN discussed that this was discussed and reviewed on discharge and there were no questions asked. She states well she is very confused and called me from the parking lot. I told the mother if the daughter had any questions or concerns she could call me. Mother stated okay, what is your name? in the background another person was talking throughout conversation as well and states Blanka. Rn responded saying Blanka.
== END 2019-04-29 22:04 | disposition home or self-care (01) ==
PROVIDERS: Emergency Provider Emergency Medicine; Family Provider Internal Medicine; PCP Internal Medicine
DX: M79.662 Pain in left lower leg (principal); E11.9 Type 2 diabetes mellitus without complications; Z79.84 Long term (current) use of oral hypoglycemic drugs; Z72.0 Tobacco use
CPT/HCPCS: 84703; 85379; 96372; 99284

== ENCOUNTER → 2019-04-30 10:55 | Outpatient (CLI) | payer MEDICAID, SELFPAY ==
[2019-04-29 20:29] VITALS: BMI 32.4
--- NOTE | 2019-04-30 11:12 | VDLE_ITS ---
Reason For Study: Left calf pain Procedure LEFT Exam performed in department. GSV is normal. A preliminary report was called and/or faxed CFV is compressible, spontaneous, phasic, to ED. competent, and demonstrates normal augmentation. FV is compressible, spontaneous, phasic, competent and demonstrates normal augmentation. POP V is compressible, spontaneous, phasic, competent and demonstrates normal augmentation. T/P Trunk is compressible. PTV is compressible. LT PerV is compressible. Interpretation Summary Deep veins of the left lower extremity are patent and compressible segmentally. There is no evidence of left lower extremity deep vein thrombosis. Valvular competence appears intact within the proximal deep venous system on the left . The left great saphenous vein appears patent and compressible segmentally. Ordering Physician: Farhad Frost Referring Physician: Tre Castle M.D. Performed By: Ashlee Nicolas RVT
== END ==
LOC: RAD 11:00 → US 11:09
PROVIDERS: Family Provider Internal Medicine; PCP Internal Medicine; Visit Provider Emergency Medicine
DX: M79.662 Pain in left lower leg (principal)
CPT/HCPCS: 93971

== ENCOUNTER 2019-04-30 11:28 | Emergency (ER) | payer OTHER, MEDICAID, SELFPAY ==
[2019-04-29 20:29] VITALS: BMI 32.4
[2019-04-30 11:29] VITALS: BP 113/75; PULSE 78; RESP 18; TEMP 36.5; O2SAT 100; BMI 30.7
--- NOTE | 2019-04-30 11:40 | ED.DCSUM_ITS ---
History of Present Illness Chief Complaint: Lower Extremity Injury Detail of Chief Complaint: Left leg pain Informant: Patient Onset: Days - 3 days Context: Gradual Onset Current Severity: Moderate Maximum Severity: Moderate Narrative: Patient presents with pain to her leg over the past 3 days and had a slight elevation in her d-dimer. Ultrasound this morning reveals no evidence of DVT. Patient now presents back to the ER stating that she wants to know what is wrong with her leg because it is not a DVT. She denies any recent change in activity. She was not wearing different shoes this week or going up and down steps. She has chronic back pain that is unchanged from baseline. Past Medical History - Allergies and Home Meds Allergies/Adverse Reactions: Allergies metformin Adverse Reaction (Verified 04/29/19 20:32) Diarrhea Primary Care Physician: Tre Castle MD [Primary Care Provider] - Prior records reviewed: Yes Past Medical History: - - Reviewed Surgical History: cholecystectomy Lives: Spouse/ Significant Other Smoking Status: Current every day smoker Review of Systems General: Denies: Chills, Fever Eyes: Denies: Visual changes - bilaterally ENT: Denies: Bilateral ear pain Cardiovascular: Denies: Chest pain Respiratory: Denies: Dyspnea, Cough Gastrointestinal: Denies: Abdominal pain, Nausea, Vomiting, Diarrhea Musculoskeletal: Reports: Myalgias, Extremity Pain. Denies: Swelling Skin: Denies: Rash, Wounds Neurological: Denies: Headache Hematologic: Denies: Easy bruising Allergy: Denies: Uticaria Physical Exam Vital Signs/Narrative: Vital Signs Temp Pulse Resp BP Pulse Ox 04/30/19 11:29 97.7 F L 78 18 113/75 100 Inital Vital Signs reviewed: Yes General: Well nourished, Well developed Head: Normocephalic ENT: Moist mucous membranes Neck: Supple Cardiovascular: Regular rate, Regular rhythm Respiratory: No distress, CTA bilaterally Abdomen: Soft, Nontender Back: - - Reproducible tenderness of the left SI joint and sciatic notch. Extremities: - - Patient has tenderness diffusely throughout the foot and lower leg. She has tenderness along the lateral portion of the left thigh. No significant edema is noted when compared to the other foot. She has strong distal pulses and can wiggle toes. Skin: Normal color Neurological: Alert, Oriented x3, - - Patient reports decreased range of motion secondary to pain, but she can flex and extend at all joints on the left leg. Psychological: Normal affect Diagnostic/Tx/Re-eval - Medical Decision Making Patient has now been ruled out for DVT. With her having pain over the sciatic notch and pain in the distribution of the sciatic nerve, I am suspicious that she has sciatica. She will be treated with anti-inflammatories, antispasmodics, and prednisone she was encouraged to follow with her PCP later this week. If no t improving she may require physical therapy or evaluation by orthopedics. ED Disposition - Plan for ED Patient: Disposition: Home or Assisted Living Diagnosis: Sciatica Instructions: BACK PAIN w/ SCIATICA Prescriptions: cycloBENZAPRine HCl [Flexeril] 10 mg PO TID PRN #20 tablet PRN Reason: Muscle Spasm Naproxen [Naprosyn] 500 mg PO BID PRN PRN #20 tablet PRN Reason: Pain Score 1-10/10 Prednisone 10 mg PO UD #33 tablet Referrals: Tre Castle MD [Primary Care Provider] - 3-5 Days
[2019-04-30] MEDS: cycloBENZAPRine HCl 10 MG Tablet PO (11:49)
[2019-04-30] MEDS: Naproxen 500 MG Tablet PO (11:49)
[2019-04-30] MEDS: predniSONE 20 MG Tablet 40 MG PO (11:49)
[2019-04-30 11:53] VITALS: RESP 16
== END 2019-04-30 11:53 | disposition home or self-care (01) ==
LOC: ED 11:47
PROVIDERS: Emergency Provider Emergency Medicine; Family Provider Internal Medicine; PCP Internal Medicine
DX: M54.32 Sciatica, left side (principal); F17.200 Nicotine dependence, unspecified, uncomplicated
CPT/HCPCS: 93971; 99284

== ENCOUNTER 2019-05-19 00:44 | Emergency (ER) | payer MEDICAID, SELFPAY ==
[2019-05-19 00:45] VITALS: BP 131/93; PULSE 102; RESP 16; TEMP 36.7; O2SAT 100; BMI 33.3
--- NOTE | 2019-05-19 01:03 | ED.VIS.GEN ---
History of Present Illness Chief Complaint: Hyperglycemia Informant: Patient Onset: Hours - 1 Context: Sudden Onset - woke her up from sleep feeling shaky, bad, like her blood sugar was high Timing: Continuous Quality: shaky Location: all over Current Severity: Mild Maximum Severity: Moderate Worsened by: n/a Relieved by: n/a Associated Symptoms: no other sx Narrative: Patient is a diabetic taking metformin only. She takes 2000 mg nightly. She forgot to take it tonight and last had it around 26-28 hours ago. Tonight before bed, she and her went out to dinner, she had a salad, chicken Asher, followed by a cheesecake covered in KitKat. She awoke tonight feeling like her blood sugar was high, and she checked it at home and it was 400. No treatment prior to arrival. Additionally, patient states as a separate matter, she has a mild asymptomatic rash on her right forearm that she noticed after having an exposure to an unknown chemical at work that got on her forearm there. She wants to make sure that was not related to her high blood sugars tonight. She states it is a dye used to sustain ceramic. She did not talk to her boss about it. - Past Medical History (1) Type 2 diabetes mellitus Status: Chronic (2) Anxiety Status: Chronic (3) Sciatica Status: Chronic Past Medical History - Allergies and Home Meds Allergies/Adverse Reactions: Allergies metformin Adverse Reaction (Verified 05/19/19 00:48) Diarrhea Primary Care Physician: Tre Castle MD [Primary Care Provider] - Surgical History: cholecystectomy Lives: Spouse/ Significant Other Smoking Status: Current every day smoker Drugs: None Review of Systems General: Reports: Malaise. Denies: Chills, Fever, Sweats Eyes: Denies: Visual changes - bilaterally, Diplopia ENT: Denies: Rhinorrhea, Sore throat Cardiovascular: Denies: Chest pain, Palpitations Respiratory: Denies: Dyspnea, Cough, Dyspnea on exertion Gastrointestinal: Denies: Abdominal pain, Nausea, Vomiting, Diarrhea, Melena, Hematochezia Genitourinary: Denies: Dysuria, Hematuria, Frequency Musculoskeletal: Denies: Back pain, Swelling, Extremity Pain Skin: Reports: Rash. Denies: Abscess, Wounds Neurological: Denies: Headache, Weakness, Numbness Physical Exam Vital Signs/Narrative: Vital Signs Temp Pulse Resp BP Pulse Ox 11/15/19 00:45 98.0 F 102 H 16 131/93 H 100 Inital Vital Signs reviewed: Yes General: Well nourished, Well developed, No Acute Distress - well-appearing, conversive, pleasant Head: Normocephalic, Atraumatic Eyes: Perrl, EOMI ENT: Moist mucous membranes, No rhinorrhea Neck: Supple, Nontender Cardiovascular: Regular rate, Regular rhythm, No murmurs, Tachycardia - mild Respiratory: No distress, CTA bilaterally, Chest nontender Abdomen: Soft, Nontender, Nondistended, Normal bowel sounds Back: Nontender, Normal Inspection. Negative for: CVA tenderness Extremities: Nontender, No edema Skin: Normal color, No Trauma, Rash - mild area of blanching erythema, nontender, right mid-ventral forearm; no lymphangitis, induration, abscess, bulla, purpura. Neurological: Alert, Oriented x3, Cranial nerves II-XII grossly intact, Normal Strength, Normal Sensation, Normal Gait Psychological: Normal affect, Normal Mood Diagnostic/Tx/Re-eval Laboratory Tests 05/19/19 05/19/19 Range/Units 01:30 01:05 Sodium 138 (136-145) mmol/L Potassium 3.3 L (3.5-5.1) mmol/L Chloride 104 (98-107) mmol/L Carbon Dioxide 24.0 (21.0-32.0) mmol/L Anion Gap 10 (5-15) BUN 19 H (7-18) mg/dL Creatinine 0.57 (0.55-1.02) mg/dL Estim Creat Clear Calc 138.13 ml/min Est GFR (MDRD) Af Amer 168 (>60) mL/min Est GFR (MDRD) Non-Af 139 (>60) mL/min BUN/Creatinine Ratio 33.3 H (10-20) RATIO Glucose 281 H (74-106) mg/dL Calcium 9.3 (8.5-10.1) mg/dL POC Glucose 281 H (70-110) mg/dL - Medical Decision Making Labs as above. She is young and healthy and eating well, I do not think she needs emergent treatment of her potassium at 3.3. She has some prerenal azotemia but she has been drinking fluids since she has been here and does not need IV fluids. She was given 8 units of subcutaneous lispro insulin for her blood sugar of 281. More than an hour later, her blood sugar is around 210. She feels better. I think she is safe to go home and take her metformin. With regards to the rash, she was advised to discuss with her boss who can review the MSDS on the chemical she was exposed to. At this time I see nothing dangerous. I advised that she washed it thoroughly, she states she will do that at home. ED Disposition - Plan for ED Patient: Disposition: Home or Assisted Living Diagnosis: Hyperglycemia, Type 2 diabetes mellitus, Exposure to chemical irritant Instructions: ED Diabetic Hyperglycemia Referrals: Tre Castle MD [Primary Care Provider] - Additional Instructions: Wash her right forearm thoroughly when she get home. Take your nightly metformin when you get home.
[2019-05-19] MEDS: Insulin Lispro 100 UNIT/ML INSULN.PEN 8 UNIT SC (01:09)
[2019-05-19 01:11] LABS: Bedside Glucose 281 mg/dL (70-110)
[2019-05-19 01:48] LABS: Anion Gap 10 (5-15); BUN 19 mg/dL (7-18); BUN/Creat Ratio 33.3 RATIO (10-20); Calcium,Total 9.3 mg/dL (8.5-10.1); Chloride 104 mmol/L (98-107); Creatinine, Serum 0.57 mg/dL (0.55-1.02); EST Glomerular Filtration Rate 139 mL/min (>60); Est Glom Filt Rate - Afr Amer 168 mL/min (>60); Estimated Creatinine Clearance 138.13 ml/min; Glucose 281 mg/dL (74-106); Potassium 3.3 mmol/L (3.5-5.1); Sodium Level 138 mmol/L (136-145)
[2019-05-19 02:51] LABS: Bedside Glucose 210 mg/dL (70-110)
[2019-05-19 02:52] VITALS: BP 119/85; PULSE 97; RESP 13; O2SAT 100
== END 2019-05-19 02:57 | disposition home or self-care (01) ==
PROVIDERS: Emergency Provider Emergency Medicine; Family Provider Internal Medicine; PCP Internal Medicine
DX: E11.65 Type 2 diabetes mellitus with hyperglycemia (principal); Z79.84 Long term (current) use of oral hypoglycemic drugs; Z77.098 Contact with and (suspected) exposure to other hazardous, chiefly nonmedicinal, chemicals; F41.9 Anxiety disorder, unspecified; F17.200 Nicotine dependence, unspecified, uncomplicated
CPT/HCPCS: 80048; 82962; 99282

== ENCOUNTER 2019-05-23 07:39 | Emergency (ER) | payer MEDICAID, SELFPAY ==
[2019-05-23 07:39] VITALS: BP 119/90; PULSE 95; RESP 16; TEMP 36.6; O2SAT 99; BMI 32.4
--- NOTE | 2019-05-23 07:54 | ED.VISSUMM ---
- ER Visit Summary Date of Service: 05/23/19 Chief Complaint: [Back pain] History of Present Illness: The patient is a 23 F [presents the emergency department complaint of back pain that started yesterday. Patient states that she has some chronic back pain issues and sciatic nerve issues with pain radiating down her left leg. Patient states that the pain she is here for today is different and that its morning he mid to upper back and radiates towards her shoulder blades. Patient denies any injury other than she did start a new job 6 days ago that requires a lot of lifting. 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 Patient denies any cough or fever. She denies any shortness of breath. The pain is not pleuritic. Patient states the pain is worse with certain movements. Patient has history of diabetes, sciatica, and anxiety.] Patient denies urinary symptoms. She denies any change in bowel bladder function. She denies weakness in extremities. She denies saddle anesthesia. Patient was seen about a month ago in the department for sciatica and at that time was given a prescription for Flexeril and naproxen. Patient states that she ran out of the Flexeril but still has the naproxen. Physical Examination: [HEENT-PERRLA, EOMI. Cranial nerves II through XII grossly intact. TMs clear. Mucous membranes moist. No adenopathy. Cardiovascular-regular rate and rhythm without murmur or ectopy Lungs-clear to auscultation, chest wall stable without crepitus or subcu emphysema Abdomen-normoactive bowel sounds, soft, nontender, no rebound or rigidity, no peritoneal signs. Back exam-patient has tenderness diffusely over the paraspinal musculature bilaterally in the thoracic spine. No bony tenderness on exam. There is no erythema or warmth noted over the spine. No crepitus noted. Deep tendon reflexes are plus 2 out of 4 bilaterally at the patella and Achilles. Patient has normal L5 extension bilaterally. Patient has negative straight leg raises. Patient has normal sensation to light touch. Extremities-intact ?4, normal range of motion, normal pulses, atraumatic] Test Results: [None indicated] Emergency Department Course and Treatment: [She was given a dose of naproxen and Flexeril in the emergency department. ] Treatment Plan: [Patient to follow-up with primary care physician 3 to 5 days. Patient will be written off work for today given work restrictions. Patient given a prescription for Naprosyn, Flexeril, and a few [place] for severe pain.] Disposition: [Discharged home in stable condition] Impression: [Atraumatic thoracic back pain] This note was generated with [employer] dictation software. It may contain incorrect words, spelling, and punctuation that were not noted in review of the chart prior to signing ED Disposition - Plan for ED Patient: Referrals: Tre Castle MD [Primary Care Provider] -
[2019-05-23] MEDS: cycloBENZAPRine HCl 10 MG Tablet PO (07:57)
[2019-05-23] MEDS: Naproxen 500 MG Tablet PO (07:57)
--- NOTE | 2019-05-23 07:58 | ED.DEP ---
ED Disposition - Plan for ED Patient: Instructions: BACK AND NECK PAIN, General, Back Sprain/Strain, BACK SPASM, No Trauma Prescriptions: cycloBENZAPRine HCl [Flexeril] 10 mg PO TID PRN #20 tab PRN Reason: Muscle Spasm Prescription Printed Hydrocodone Bitart/Apap 5-325 [[place] 5MG-325MG] 1 tab PO Q4H PRN PRN 2 Days #10 tab PRN Reason: Pain Prescription Printed Referrals: Tre Castle MD [Primary Care Provider] - 3-5 Days
== END 2019-05-23 08:05 | disposition home or self-care (01) ==
LOC: ED 07:57
PROVIDERS: Emergency Provider Emergency Medicine; Family Provider Internal Medicine; PCP Internal Medicine
DX: M54.6 Pain in thoracic spine (principal); E11.9 Type 2 diabetes mellitus without complications; F41.9 Anxiety disorder, unspecified; F17.200 Nicotine dependence, unspecified, uncomplicated; Z79.84 Long term (current) use of oral hypoglycemic drugs
CPT/HCPCS: 99283

== ENCOUNTER 2019-05-26 17:32 | Emergency (ER) | payer MEDICAID, SELFPAY ==
[2019-05-26 17:33] VITALS: BP 141/92; PULSE 101; RESP 14; TEMP 36.6; O2SAT 97; BMI 33.2
--- NOTE | 2019-05-26 17:41 | ED.DEP ---
ED Disposition - Plan for ED Patient: Instructions: Tmj Syndrome Prescriptions: Naproxen [Naprosyn] 500 mg PO BID PRN #20 tablet Referrals: Tre Castle MD [Primary Care Provider] -
--- NOTE | 2019-05-26 17:45 | ED.DCSUM_ITS ---
- ER Visit Summary Date of Service: 05/26/19 Chief Complaint: Right jaw pain History of Present Illness: The patient is a 23 F presenting with right-sided jaw pain. Patient states she has a history of TMJ syndrome. She has been told in the past by an oral surgeon that she needs her jaw broken and reset. She states she declined the surgery. She is currently taking naproxen. She went to urgent care yesterday she states they manipulated her jaw due to a clicking noise. She states since that time she has had worsening pain in her right jaw. She is able to open and close her mouth. Denies fever or other complaints. Physical Examination: Vitals are stable. Patient is afebrile. Alert no acute distress. HEENT exam TMs normal. Pharynx normal. No intraoral fluctuance. No sublingual edema. Tenderness right TMJ. Neck is supple. Lungs are clear and equal bilaterally. Heart is regular rate and rhythm. Extremities are unremarkable. Skin is warm and dry. No focal neurologic deficit. Remainder of exam is unremarkable. Emergency Department Course and Treatment: Patient is given [place] x1. Patient is given a prescription for naproxen. She is given dental referral list. Advised to follow-up with dentist. Advised to return to the ED for worsening complaints. Disposition: Discharged home Impression: TMJ syndrome This note was generated with [employer] dictation software. It may contain incorrect words, spelling, and punctuation that were not noted in review of the chart prior to signing ED Disposition - Plan for ED Patient: Instructions: Tmj Syndrome Prescriptions: Naproxen [Naprosyn] 500 mg PO BID PRN #20 tab Prescription Printed Referrals: Tre Castle MD [Primary Care Provider] -
[2019-05-26 17:57] VITALS: RESP 16
[2019-05-26] MEDS: HYDROcodone Bitartrate/Apap 5/325 Tablet PO (17:58)
[2019-05-26 18:00] VITALS: RESP 16
== END 2019-05-26 18:01 | disposition home or self-care (01) ==
LOC: ED 17:54
PROVIDERS: Emergency Provider Emergency Medicine; Family Provider Internal Medicine; PCP Internal Medicine
DX: M26.609 Unspecified temporomandibular joint disorder, unspecified side (principal); E11.9 Type 2 diabetes mellitus without complications; F41.9 Anxiety disorder, unspecified; F17.200 Nicotine dependence, unspecified, uncomplicated; Z79.84 Long term (current) use of oral hypoglycemic drugs
CPT/HCPCS: 99283

== ENCOUNTER 2019-07-11 18:06 | Emergency (ER) | payer MEDICAID, SELFPAY ==
[2019-07-11 18:07] VITALS: BP 140/94; PULSE 92; RESP 16; TEMP 36.8; O2SAT 98; BMI 32.4
--- NOTE | 2019-07-11 19:21 | CT_ITS ---
STUDY: CT ABDOMEN AND PELVIS WITH CONTRAST REASON FOR EXAM: Female, 23 years old. RLQ PAIN RADIATION DOSAGE (If Supplied By Facility): CTDIvol = ( 14.22 ) mGy, DLP = ( 1120.06 ) mGycm TECHNIQUE: Transaxial images were obtained from the dome of the diaphragm to the symphysis pubis without oral contrast. Oral and amp; IV Gastrografin and amp; 100mL Isovue-300 was administered. Sagittal and coronal images were reconstructed. Individualized dose optimization techniques were used for this CT. COMPARISON: August 24, 2013 FINDINGS: The visualized lung bases are unremarkable. The visualized portions of the heart are within normal limits. Fatty liver. Nonvisualization of the gallbladder. No significant dilatation of the extrahepatic biliary system. Normal spleen. Normal pancreas. Normal bilateral adrenal glands. Normal right kidney. Normal left kidney. Normal visualized stomach. Normal small intestine. Normal colon. The appendix is visualized and appears normal. Normal abdominal aorta. Normal inferior vena cava. Normal retroperitoneum. Normal urinary bladder. There are small cysts or prominent follicles bilaterally up to 1.3 cm. Normal abdominal wall. Mild degenerative vertebral changes. Mild central disc protrusion at L4-5. CT/Abdomen/Pelvis WITH Contrast IMPRESSION: Fatty liver. Small cysts or follicles of the ovaries. Normal appendix. Electronically Signed: Mark Crabtree DO at 22:01 EST Tel [phone], Service support ,
[2019-07-11] MEDS: 0.9% Normal Saline 1,000 ML 1000 ML IV (19:40)
[2019-07-11] MEDS: Morphine 4 MG/ML Syringe IV ×2 (19:41→21:54)
[2019-07-11] MEDS: Ondansetron 4 MG/2 ML Vial IV (19:43)
[2019-07-11 19:52] LABS: Absolute Lymphocyte Count 4.07 X10^3/uL (0.83-4.51); Absolute Neutrophil Count 4.4 X10^3/uL (2.0-7.7); Basophil# 0.05 X10^3/uL; Basophil% 0.5 % (0-1); Eosinophil# 0.13 X10^3/uL; Eosinophils% 1.4 % (0-5); Hematocrit 38.2 % (37-47); Hemoglobin 12.8 g/dL (12.0-15.0); Lymphocyte # 4.07 X10^3/ul (4.0); Mean Corp Hgb Conc 33.5 g/dL (32-36); Mean Corpuscular Hgb 28.3 pg (27.0-32.0); Mean Corpuscular Volume 84.5 fL (81-99); Mean Platelet Vol. 10.2 fl (6.2-12.0); Monocyte# 0.59 X10^3/uL; Monocyte% 6.4 % (0-10); NRBC Flagged by Analyzer 0 % (0-5); Neutrophil % 47.5 % (47-70); Platelet Count 307 K/mm3 (150-450); RBC Distribution Width CV 11.9 % (11.6-14.6); RBC Distribution Width SD 36.5 fl (35.1-43.9); Red Blood Count 4.52 M/mm3 (4.2-5.4); White Blood Count 9.3 K/mm3 (4.4-11.0)
[2019-07-11 20:04] LABS: Internal QC Validated? YES +Cl - CLEAR BKGD; Pregnancy, Serum, hCG Quali. NEGATIVE Negative
[2019-07-11 20:06] LABS: BUN 12 mg/dL (7-18); Creatinine, Serum 0.74 mg/dL (0.55-1.02); EST Glomerular Filtration Rate 103 mL/min (>60); Estimated Creatinine Clearance 106.39 ml/min; Glucose 271 mg/dL (74-106)
[2019-07-11 20:07] LABS: Anion Gap 5 (5-15); BUN/Creat Ratio 16.2 RATIO (10-20); Calcium,Total 8.9 mg/dL (8.5-10.1); Chloride 108 mmol/L (98-107); Est Glom Filt Rate - Afr Amer 124 mL/min (>60); Potassium 3.9 mmol/L (3.5-5.1); Sodium Level 138 mmol/L (136-145)
[2019-07-11 20:13] LABS: Mucous, Urine 0 SEEN /hpf (<or=2+); Red Blood Cells-Urine 0 SEEN /hpf (0-5); Squamous Epithelial Cells - UA 0 SEEN /hpf (5-10); White Blood Cells 0 SEEN /hpf (0-5)
[2019-07-11 20:20] LABS: Color, Urine Yellow (Yellow); Glucose, Dipstick 1000 mg/dl (Normal); Ketone-Dipstick 5 mg/dl (Negative); Leukocyte Esterase-Dipstick Negative /ul (Negative); Nitrite-Dipstick Negative (Negative); Occult Blood-Urine Negative /ul (Negative); Protein-Dipstick Negative (Negative); Specific Gravity, Urine 1.015 (1.002-1.030); Urine Bilirubin Dipstick Negative (Negative); Urine Clarity Clear (Clear); Urine Urobilinogen Normal (Normal)
[2019-07-11 20:26] LABS: Bacteria RARE /hpf (None Seen)
[2019-07-11 21:53] VITALS: BP 149/103; PULSE 95; RESP 16; O2SAT 98
--- NOTE | 2019-07-11 22:34 | ED.DCSUM_ITS ---
- ER Visit Summary Date of Service: 07/11/19 Chief Complaint: Abdominal pain History of Present Illness: The patient is a [address] Castle in the [facility]. She reports that she has right-sided abdominal pain began at 1030 this morning is gradually worsened. The stabbing pain is 9 out of 10 at worst and 1 out of 10 currently. Is worsened by movement relieved by remaining still. She denies any nausea, vomiting, or diarrhea. Her last bowel movements today. No melena medication. No dysuria or frequency. Last menstrual period was last week. She denies any vaginal bleeding or discharge. She reports she has had similar symptoms previously, but not this intense. She has had a history of irritable bowel syndrome and polycystic ovarian syndrome. Physical Examination: Vitals: Stable. Afebrile. General: Well-nourished and well-developed. Head: Normocephalic atraumatic. Neck: Supple, no lymphadenopathy. No JVD. Nontender. Cardiovascular: Regular rate and rhythm. No murmurs. Respiratory: No respiratory distress. Clear to auscultation bilaterally. Abdominal: Soft, moderate tenderness palpation right lower quadrant, nondistended, normal bowel sounds. No guarding, rebound, or peritoneal signs. Back: Nontender. Extremities: Nontender, no edema. Skin: Normal color, no rash. Neurologic: Alert and oriented ?3. Cranial nerves II through XII are intact. Normal strength and sensation. Psych: Normal affect. Test Results: CBC shows lymphocytes 44. Chem-7 shows a chloride of 108 and glucose 371. UA is negative. test is negative. Clinical Impression(s) from Imaging Studies Abdomen/Pelvis CT 07/11/19 19:21 IMPRESSION: Fatty liver. Small cysts or follicles of the ovaries. Normal appendix. Electronically Signed: Mark Crabtree DO at 22:01 EST Tel [phone], Service support , Emergency Department Course and Treatment: Patient given a dose of morphine and Zofran in the emergency department. She is resting more comfortably. Treatment Plan: Patient will be discharged with naproxen and Bentyl. Instructed to follow-up her primary care physician and/or the [facility] 1 to 2 days if not improving. Return to the emergency department for any worsening symptoms. Disposition: To home in improved and stable condition. Impression: 1. Abdominal pain, uncertain cause. This note was generated with [employer] dictation software. It may contain incorrect words, spelling, and punctuation that were not noted in review of the chart prior to signing ED Disposition - Plan for ED Patient: Disposition: Home or Assisted Living Instructions: ABDOMINAL PAIN, Unknown Cause, (Female) Prescriptions: Dicyclomine HCl [Bentyl] 20 mg PO TIDAC #20 cap Prescription Printed Naproxen [Naprosyn] 500 mg PO BID #14 tab Prescription Printed Referrals: Tre Castle MD [Primary Care Provider] - 1-2 Days if not improving
[2019-07-11 22:38] VITALS: BP 116/85; PULSE 81; RESP 18; O2SAT 98
== END 2019-07-11 22:45 | disposition home or self-care (01) ==
PROVIDERS: Emergency Provider Emergency Medicine; Family Provider Internal Medicine; PCP Internal Medicine
DX: R10.31 Right lower quadrant pain (principal); E11.9 Type 2 diabetes mellitus without complications; Z79.84 Long term (current) use of oral hypoglycemic drugs; Z72.0 Tobacco use
CPT/HCPCS: 74177; 80048; 81001; 84703; 85025; 96361; 96374; 96375; 96376; 99283; J7030; Q9967; A4216; J2405

== ENCOUNTER 2019-07-13 14:58 | Emergency (ER) | payer MEDICAID, SELFPAY ==
[2019-07-13 14:59] VITALS: BP 152/112; PULSE 115; RESP 20; TEMP 36.4; O2SAT 97; BMI 34.1
[2019-07-13 15:22] VITALS: TEMP 36.5
--- NOTE | 2019-07-13 15:41 | US_ITS ---
STUDY: ULTRASOUND OF THE FEMALE PELVIS - COMPLETE REASON FOR EXAM: Female, 23 years old. Pelvic pain TECHNIQUE: Transvaginal ultrasound images were obtained from the pelvis. TECHNICAL QUALITY: Adequate. COMPARISON: Ultrasound pelvis April 14, 2016 FINDINGS: The uterus measures 5.8 x 3.4 x 2.8 cm. Normal uterine cervix. The endometrium measures 9 mm in thickness. There is no demonstrated myometrial mass. The right ovary measures 4.1 x 2.4 x 2.3 cm. There is a right ovarian 1.7 x 1.9 x 1.4 symphysis. There is no visualized right adnexal mass or complex lesion. There is normal arterial and normal venous vascularity. The left ovary measures 3.3 x 2.1 x 2 cm. There is no left ovarian cyst or ovarian mass. There is no visualized left adnexal mass or complex lesion. There is normal arterial and normal venous vascularity. There is no fluid in the cul-de-sac. US/Transvaginal Non- IMPRESSION: No acute pelvic pathology identified. Right ovarian cyst, physiologic in appearance. Electronically Signed: Rayray Hernandez, at 17:13 EST Tel , Service support ,
--- NOTE | 2019-07-13 15:42 | ED.DCSUM_ITS ---
History of Present Illness Chief Complaint: Abd Pain Informant: Patient - Abdominal Pain/Flank Pain Onset: Days - 4 Context: Gradual Onset Timing: Continuous Quality: Aching Location: RLQ Current Severity: Severe Maximum Severity: Severe Worsened by: - - worse when urinating; possibly worse w/ food Relieved by: Nothing - tried ibuprofen - Nausea/Vomiting/Emesis GI Symptom: Negative for: Nausea, Vomiting - Diarrhea/Melena/Hematochezia GI Symptom: Negative for: Diarrhea, Melena, Hematochezia Associated Symptoms: Negative for: Dysuria, Frequency, Hematuria, Urgency Narrative: Seen 2 days ago for the same symptoms, had a CT scan that was essentially negative, with a normal appendix, except for some small ovarian cyst which may or may not of been causing this. Patient think she had the same pain long ago when she had ovarian cystectomy. She denies any fevers, nausea, vomiting, dysuria but urinating does make the abdominal pain feel worse. Does not radiate into her back. No shortness of breath or thoracic symptoms. No syncope. No vaginal bleeding or discharge. She took ibuprofen but it did not help at all earlier in the pain was severe. It is a little better right now. Straighten her legs out from the position makes the pain worse too. - Past Medical History (1) Anxiety Status: Chronic (2) Sciatica Status: Chronic (3) Type 2 diabetes mellitus Status: Chronic Past Medical History - Allergies and Home Meds Allergies/Adverse Reactions: Allergies metformin Adverse Reaction (Verified 07/13/19 15:01) Diarrhea Primary Care Physician: Tre Castle MD [Primary Care Provider] - Surgical History: cholecystectomy Lives: Spouse/ Significant Other Smoking Status: Current every day smoker Review of Systems General: Denies: Chills, Fever, Sweats Eyes: Denies: Visual changes - bilaterally, Diplopia ENT: Denies: Rhinorrhea, Sore throat Cardiovascular: Denies: Chest pain, Palpitations Respiratory: Denies: Dyspnea, Cough, Dyspnea on exertion Gastrointestinal: Reports: Abdominal pain. Denies: Nausea, Vomiting, Diarrhea, Melena, Hematochezia Genitourinary: Denies: Dysuria, Hematuria, Frequency Musculoskeletal: Denies: Neck pain, Back pain, Extremity Pain Skin: Denies: Rash, Wounds Neurological: Denies: Headache, Weakness, Numbness Physical Exam Vital Signs/Narrative: Vital Signs Temp Pulse Resp BP Pulse Ox 07/13/19 15:22 97.7 F L 07/13/19 14:59 97.5 F L 115 H 20 H 152/112 H 97 Inital Vital Signs reviewed: Yes General: Well nourished, Well developed, No Acute Distress Head: Normocephalic, Atraumatic Eyes: Perrl, EOMI ENT: Moist mucous membranes, No rhinorrhea Neck: Supple, Nontender Cardiovascular: Regular rate, Regular rhythm, No murmurs Respiratory: No distress, CTA bilaterally, Chest nontender Abdomen: Soft, Nondistended, Normal bowel sounds, Tender - severely tender throughout the right abd and pelvis; otherwise, NT Back: Nontender, Normal Inspection. Negative for: CVA tenderness Extremities: Nontender, No edema Skin: Normal color, No rash, No Trauma Neurological: Alert, Oriented x3, Cranial nerves II-XII grossly intact, Normal Strength, Normal Sensation, Normal Gait Psychological: Normal affect, Normal Mood Diagnostic/Tx/Re-eval Impressions Transvaginal US 07/13/19 15:41 IMPRESSION: No acute pelvic pathology identified. Right ovarian cyst, physiologic in appearance. Electronically Signed: Rayray Hernandez, at 17:13 EST Tel , Service support , 07/13/19 15:41 US Vaginal [Transvaginal Non-] [US] Stat Laboratory Results 07/13/19 07/13/19 15:19 15:19 WBC 9.3 RBC 5.11 Hgb 14.1 Hct 42.6 MCV 83.4 MCH 27.6 MCHC 33.1 RDW Std Deviation 36.7 RDW Coeff of Susan 12.1 Plt Count 337 MPV 10.4 Immature Gran % (Auto) 0.200 Neut % (Auto) 52.9 Lymph % (Auto) 39.2 [place] % (Auto) 6.1 Eos % (Auto) 1.3 Baso % (Auto) 0.3 Absolute Neuts (auto) 4.9 Absolute Lymphs (auto) 3.64 Nucleated RBC % 0 Total Bilirubin 0.60 Direct Bilirubin 0.18 AST 43 H ALT 131 H Alkaline Phosphatase 76 Total Protein 8.2 Albumin 4.0 Globulin 4.2 - Medical Decision Making Ultrasound of the pelvis shows a very small physiologic-appearing cyst on the right ovary, no free fluid or signs of a ruptured cyst. I think this is probably incidental and has nothing to do with her pain. Interestingly, her AST and ALT are slightly elevated compared with 2 days ago. She had a fatty liver on CT, which may or may not be related. She has no hyperbilirubinemia to suggest common bile duct obstruction, and a CT showed no suspicion of that 2 days ago. Additionally her appendix is normal. Her pain was treated and she was given fluids. On reexamination she is still very tender in the lateral right abdomen. I discussed with Dr. Dale, who looked at her scan and suggested that she has a significant amount of stool in the right hemicolon only, with the rest of it being decompressed without stool. Given the appearance on the CT, he thinks that the nonspecifically barely elevated liver enzymes may be unrelated, which I tend to agree with. I discussed all this with the patient she is amenable to trying magnesium citrate, is also advised to use MiraLAX 1 capful daily which they will get at home but we will give them the magnesium citrate here. ED Disposition - Plan for ED Patient: Disposition: Home or Assisted Living Diagnosis: Right sided abdominal pain Instructions: CONSTIPATION (Adult), Magnesium Citrate Oral solution Referrals: Tre Castle MD [Primary Care Provider] - 3-5 Days if not improving (After using magnesium citrate)
[2019-07-13] MEDS: Ketorolac 30 MG/ML Syringe 15 MG IV (15:55)
[2019-07-13] MEDS: Morphine 4 MG/ML Syringe IV ×2 (15:56→18:02)
[2019-07-13] MEDS: 0.9% Normal Saline 1,000 ML 1000 ML IV (15:56)
[2019-07-13 16:00] LABS: Absolute Lymphocyte Count 3.64 X10^3/uL (0.83-4.51); Absolute Neutrophil Count 4.9 X10^3/uL (2.0-7.7); Basophil# 0.03 X10^3/uL; Basophil% 0.3 % (0-1); Eosinophil# 0.12 X10^3/uL; Eosinophils% 1.3 % (0-5); Hematocrit 42.6 % (37-47); Hemoglobin 14.1 g/dL (12.0-15.0); Lymphocyte # 3.64 X10^3/ul (4.0); Lymphocyte % 39.2 % (19-41); Mean Corp Hgb Conc 33.1 g/dL (32-36); Mean Corpuscular Hgb 27.6 pg (27.0-32.0); Mean Corpuscular Volume 83.4 fL (81-99); Mean Platelet Vol. 10.4 fl (6.2-12.0); Monocyte# 0.57 X10^3/uL; Monocyte% 6.1 % (0-10); NRBC Flagged by Analyzer 0 % (0-5); Neutrophil # 4.91 X10^3/uL (2.7-7.7); Neutrophil % 52.9 % (47-70); Platelet Count 337 K/mm3 (150-450); RBC Distribution Width CV 12.1 % (11.6-14.6); RBC Distribution Width SD 36.7 fl (35.1-43.9); Red Blood Count 5.11 M/mm3 (4.2-5.4); White Blood Count 9.3 K/mm3 (4.4-11.0)
[2019-07-13 16:26] LABS: AST(SGOT) 43 U/L (15-37); Alanine Aminotransfer ALT/SGPT 131 U/L (13-56); Alkaline Phosphatase 76 U/L (45-117); Bilirubin, Direct 0.18 mg/dL (0.00-0.30); Globulin 4.2 g/dL (2.2-4.2); Protein, Total 8.2 g/dL (6.4-8.2)
[2019-07-13 16:58] VITALS: BP 134/88; PULSE 88; RESP 16; TEMP 36.6; O2SAT 99
--- NOTE | 2019-07-13 17:31 | ED.RN ---
pt c/o cont. pain. dr. hameed informed, will continue to monitor.
[2019-07-13] MEDS: Dicyclomine 10 MG Capsule 20 MG PO (18:01)
[2019-07-13] MEDS: Mag Hydrox/Al Hydrox/Simeth 30 ML UDC PO (18:01)
[2019-07-13 18:08] VITALS: RESP 14
[2019-07-13] MEDS: Magnesium Citrate 300 ML 150 ML PO (18:27)
[2019-07-13 18:28] VITALS: BP 118/84; PULSE 66; RESP 16; O2SAT 98
== END 2019-07-13 18:30 | disposition home or self-care (01) ==
PROVIDERS: Emergency Provider Emergency Medicine; Family Provider Internal Medicine; PCP Internal Medicine
DX: K59.00 Constipation, unspecified (principal); N83.201 Unspecified ovarian cyst, right side; R10.31 Right lower quadrant pain; E11.9 Type 2 diabetes mellitus without complications; F41.9 Anxiety disorder, unspecified; F17.200 Nicotine dependence, unspecified, uncomplicated; Z79.84 Long term (current) use of oral hypoglycemic drugs
CPT/HCPCS: 76830; 80076; 85025; 96361; 96374; 96375; 96376; 99284; J7030; A4216

== ENCOUNTER 2019-07-19 18:32 | Emergency (ER) | payer MEDICAID, SELFPAY ==
[2019-07-19 18:32] VITALS: BP 121/77; PULSE 104; RESP 17; TEMP 36.2; O2SAT 98; BMI 34.9
[2019-07-19 19:12] VITALS: BP 131/98; PULSE 102; RESP 15; O2SAT 98
[2019-07-19] MEDS: Morphine 4 MG/ML Syringe IV (20:18)
[2019-07-19] MEDS: Ondansetron 4 MG/2 ML Vial IV (20:18)
[2019-07-19] MEDS: 0.9% Normal Saline 1,000 ML 125 ML IV (20:20)
[2019-07-19 20:24] LABS: Absolute Lymphocyte Count 3.57 X10^3/uL (0.83-4.51); Absolute Neutrophil Count 3.8 X10^3/uL (2.0-7.7); Basophil# 0.02 X10^3/uL; Basophil% 0.2 % (0-1); Eosinophil# 0.11 X10^3/uL; Eosinophils% 1.4 % (0-5); Hematocrit 44.2 % (37-47); Hemoglobin 14.8 g/dL (12.0-15.0); Lymphocyte # 3.57 X10^3/ul (4.0); Lymphocyte % 44.2 % (19-41); Mean Corp Hgb Conc 33.5 g/dL (32-36); Mean Corpuscular Hgb 28.2 pg (27.0-32.0); Mean Corpuscular Volume 84.2 fL (81-99); Mean Platelet Vol. 10.4 fl (6.2-12.0); Monocyte# 0.54 X10^3/uL; Monocyte% 6.7 % (0-10); NRBC Flagged by Analyzer 0 % (0-5); Neutrophil # 3.81 X10^3/uL (2.7-7.7); Neutrophil % 47.1 % (47-70); Platelet Count 330 K/mm3 (150-450); RBC Distribution Width CV 12.2 % (11.6-14.6); RBC Distribution Width SD 36.7 fl (35.1-43.9); Red Blood Count 5.25 M/mm3 (4.2-5.4); White Blood Count 8.1 K/mm3 (4.4-11.0)
[2019-07-19 20:33] LABS: Bacteria 0 SEEN /hpf (None Seen); Mucous, Urine 0 SEEN /hpf (<or=2+); Red Blood Cells-Urine 0 SEEN /hpf (0-5); White Blood Cells 0 SEEN /hpf (0-5)
[2019-07-19 20:36] LABS: Color, Urine Yellow (Yellow); Glucose, Dipstick 1000 mg/dl (Normal); Ketone-Dipstick 5 mg/dl (Negative); Leukocyte Esterase-Dipstick Negative /ul (Negative); Nitrite-Dipstick Negative (Negative); Occult Blood-Urine Negative /ul (Negative); Protein-Dipstick Negative (Negative); Specific Gravity, Urine 1.015 (1.002-1.030); Urine Bilirubin Dipstick Negative (Negative); Urine Clarity Clear (Clear); Urine Urobilinogen Normal (Normal)
[2019-07-19 20:41] LABS: Internal QC Validated? YES +Cl - CLEAR BKGD; Pregnancy, Serum, hCG Quali. NEGATIVE Negative
[2019-07-19 20:44] LABS: Squamous Epithelial Cells - UA 0-5 SEEN /hpf (5-10)
[2019-07-19 20:46] LABS: ALB/GLOB Ratio 0.9 RATIO (0.9-2.4); AST(SGOT) 25 U/L (15-37); Alanine Aminotransfer ALT/SGPT 72 U/L (13-56); Alkaline Phosphatase 72 U/L (45-117); Anion Gap 4 (5-15); BUN 17 mg/dL (7-18); Calcium,Total 9.8 mg/dL (8.5-10.1); Chloride 104 mmol/L (98-107); Creatinine, Serum 0.71 mg/dL (0.55-1.02); EST Glomerular Filtration Rate 108 mL/min (>60); Est Glom Filt Rate - Afr Amer 131 mL/min (>60); Estimated Creatinine Clearance 110.89 ml/min; Globulin 4.4 g/dL (2.2-4.2); Glucose 206 mg/dL (74-106); Lipase 132 U/L (73-393); Protein, Total 8.4 g/dL (6.4-8.2); Sodium Level 134 mmol/L (136-145)
[2019-07-19 21:02] VITALS: BP 130/104; PULSE 85; RESP 14; O2SAT 98
--- NOTE | 2019-07-19 21:43 | ED.VISSUMM ---
- ER Visit Summary Date of Service: 07/19/19 Chief Complaint: [Abdominal pain] History of Present Illness: The patient is a 23 F [presents to the emergency department complaint of abdominal pain that she has had for over 2 weeks off and on. Patient states that food seems to make it worse. Patient states that she was seen in the emergency department last week and had work-up that was unremarkable. Patient was given magnesium citrate which caused her to have bowel movements because they thought she was constipated and she did have relief for about a day. Patient does have history of irritable bowel syndrome. Patient does have a history of PCOS and history of diabetes. Patient has had her gallbladder removed. She denies any fevers. Her last bowel movement was about 2 hours ago. Patient states that normally her stool is soft and has daily bowel movements.] Physical Examination: [HEENT-PERRLA, EOMI. Cranial nerves II through XII grossly intact. TMs clear. Mucous membranes moist. No adenopathy. Cardiovascular-regular rate and rhythm without murmur or ectopy Lungs-clear to auscultation, chest wall stable without crepitus or subcu emphysema Abdomen-normoactive bowel sounds, soft. Patient has some mild diffuse tenderness. There is no rebound, rigidity, or perineal signs. Extremities-intact ?4, normal range of motion, normal pulses, atraumatic] Test Results: [CBC with it was normal. Chemistries unremarkable. LFTs unremarkable. Lipase was normal. Urinalysis normal. hCG was negative.] Emergency Department Course and Treatment: [She was given 1 dose of morphine and Zofran and she had good pain relief with that. Patient states at one point she had of a passing pain in the upper abdomen that made her feel short of breath but then that passed also.] Treatment Plan: [Patient advised to push fluids. Patient will be given referral to general surgery on-call for follow-up. Patient states that 6 months ago she had a colonoscopy and she is had multiple EGDs in the past. I suspect her pain may be related to her IBS. I do not feel any further imaging is indicated especially given that she just had a CT scan 1 week ago that was unremarkable and this is the same pain. Patient also had a pelvic ultrasound that showed a right ovarian cyst that was thought to be physiologic.] Disposition: [Discharged home stable condition] Impression: [Abdominal pain-etiology uncertain] This note was generated with [employer] dictation software. It may contain incorrect words, spelling, and punctuation that were not noted in review of the chart prior to signing ED Disposition - Plan for ED Patient: Referrals: Tre Castle MD [Primary Care Provider] -
--- NOTE | 2019-07-19 21:46 | ED.DEP ---
ED Disposition - Plan for ED Patient: Instructions: ABDOMINAL PAIN, Unknown Cause, (Female) Referrals: Tre Castle MD [Primary Care Provider] - Winston Hope MD [STAFF PHYSICIAN] - 3-5 Days
[2019-07-19 21:59] VITALS: BP 116/77; PULSE 100; RESP 12; O2SAT 100
== END 2019-07-19 22:06 | disposition home or self-care (01) ==
PROVIDERS: Emergency Provider Emergency Medicine; PCP Internal Medicine; Referring Provider Internal Medicine
DX: R10.9 Unspecified abdominal pain (principal); E11.9 Type 2 diabetes mellitus without complications; Z79.84 Long term (current) use of oral hypoglycemic drugs; Z90.49 Acquired absence of other specified parts of digestive tract
CPT/HCPCS: 80053; 81001; 83690; 84703; 85025; 96361; 96374; 96375; 99284; J7030; A4216; J2405

== ENCOUNTER 2019-07-30 14:56 | Emergency (ER) | payer MEDICAID, SELFPAY ==
[2019-07-30 14:57] VITALS: BP 132/87; PULSE 87; RESP 14; TEMP 36.7; O2SAT 98; BMI 34.1
--- NOTE | 2019-07-30 15:31 | CT_ITS ---
STUDY: CT BRAIN WITHOUT CONTRAST REASON FOR EXAM: Female, 23 years old. Frontal headache x 1 week, photophobia, weakness. Hx diabetes. RADIATION DOSAGE (If Supplied By Facility): CTDIvol = ( 44.99 ) mGy, DLP = ( 745.49 ) mGycm TECHNIQUE: Transaxial CT imaging of the brain was performed without administration of intravenous contrast material. Individualized dose optimization techniques were used for this CT. COMPARISON: No relevant priors. FINDINGS: Normal soft tissue structures. Normal calvarium. Normal size ventricles and extra-axial spaces for the patient''s age. Normal white matter tracts of the cerebral hemispheres. Normal basal ganglia and thalami. Normal brainstem. Normal cerebellum. There is no intracranial hemorrhage. There are no findings of an acute ischemic infarction. Small focus of polypoid mucosal thickening or mucous retention in the right sphenoid sinus. Other paranasal sinuses are clear. Normal temporal bones. CT/Brain/Head without Contrast IMPRESSION: Normal unenhanced CT scan of the brain. Small focus of polypoid mucosal thickening or mucous retention in the right sphenoid sinus. Other paranasal sinuses clear. Normal temporal bones. Electronically Signed: Steffanie Yan MD at 16:27 EST , Service support ,
--- NOTE | 2019-07-30 15:33 | ED.VIS.HA ---
History of Present Illness Chief Complaint: Headache Informant: Patient Onset: Days - 7 Context: Gradual Timing: Continuous Quality: Sharp Associated Symptoms: Nausea, Photophobia. Negative for: Fever, Vomiting, Sinus Pressure, Numbness, Tingling, Visual Changes, Blurred Vision, Visual Loss Narrative: Patient is a 23-year-old female with history of PCOS and ihe-gbvnfth-[id number] diabetes mellitus presenting with a headache. Patient states she is had a headache for the past 7 days. She states it came on gradually 7 days ago when she was on the couch. It has been constant. Or rash. She does have associated photophobia and is currently wearing sunglasses. Patient denies any vomiting, bowel symptoms or symptoms. Patient in triage that she feels weak. She says that she does not feel weak per se but she just feels that her muscles are slow to respond when she tries to move. She denies any numbness or paresthesias. She is currently menstruating. She denies concern for . She has tried Naprosyn, Excedrin and Tylenol at home. Her last dose of medication was at 8 AM which was not helpful. Patient states normally she gets a headache it only last for couple hours and will go away with Tylenol. She denies any history of migraine headaches. She notes her aunt has a history of migraines. Prior similar symptoms: No Past Medical History - Allergies and Home Meds Allergies/Adverse Reactions: Allergies metformin Adverse Reaction (Verified 07/30/19 14:57) Diarrhea Primary Care Physician: Tre Castle MD [Primary Care Provider] - Past Medical History: - - PCOS, diabetes mellitus type 2 Surgical History: cholecystectomy Lives: With Family Smoking Status: Current every day smoker Review of Systems General: Denies: Chills, Fever, Sweats Eyes: Reports: - - Photophobia. Denies: Visual changes - bilaterally, Diplopia ENT: Denies: Rhinorrhea, Sore throat Cardiovascular: Denies: Chest pain, Palpitations Respiratory: Denies: Dyspnea, Cough, Dyspnea on exertion Gastrointestinal: Reports: Nausea. Denies: Abdominal pain, Vomiting, Diarrhea, Melena, Hematochezia Genitourinary: Denies: Dysuria, Hematuria, Frequency Musculoskeletal: Denies: Neck pain, Back pain, Extremity Pain Skin: Denies: Rash, Wounds Neurological: Reports: Headache. Denies: Weakness, Numbness Physical Exam Vital Signs/Narrative: Vital Signs Temp Pulse Resp BP Pulse Ox 07/30/19 14:57 98.1 F 87 14 132/87 H 98 Inital Vital Signs reviewed: Yes General: Well nourished, Well developed Head: NC, AT Eyes: Perrl, EOMI, - - No nystagmus ENT: Moist mucous membranes, No rhinorrhea, TM's clear. Negative for: Nasal congestion Neck: Supple, No Lymphadenopathy, No JVD, Nontender, No Meningismus Cardiovascular: Regular rate, Regular rhythm, No murmurs Respiratory: No distress, CTA bilaterally, Chest nontender Abdomen: Soft, Nontender, Nondistended, Normal bowel sounds Back: Nontender, Normal Inspection Extremities: Nontender, No edema Skin: Normal color, No rash Neuro: Alert, Oriented x3, Cranial nerves II-XII grossly intact, Normal Strength, Normal Sensation, Normal DTR, Normal Gait Psychological: Normal affect Diagnostic/Tx/Re-eval Clinical Impression(s) from Imaging Studies Brain CT 07/30/19 15:31 IMPRESSION: Normal unenhanced CT scan of the brain. Small focus of polypoid mucosal thickening or mucous retention in the right sphenoid sinus. Other paranasal sinuses clear. Normal temporal bones. Electronically Signed: Steffanie Yan MD at 16:27 EST , Service support , Laboratory Data 07/30/19 15:40 Urine Test Negative - Medical Decision Making She is evaluated for 1 week of headache. She is associated photophobia. She does not have any nuchal rigidity, fever or rash. Do not suspect meningitis. Patient is not have a history of migraine even though this sounds like a migraine headache. CT brain is negative. Headache was slow in onset and I do not suspect a subarachnoid hemorrhage. Patient has a normal neurologic exam. Patient is treated initially with Compazine and Benadryl as well as IV fluids. After CT came back negative she is given IV Toradol. On reevaluation she has improvement. She will be discharged home to follow-up with her PCP. She will alternate Tylenol and ibuprofen at home as needed. Patient is counseled on signs and symptoms requiring return to the emergency room. Patient verbalizes agreement and understand this plan. Patient discharged home in stable and improved condition. ED Disposition - Plan for ED Patient: Disposition: Home or Assisted Living Diagnosis: Headache Instructions: HEADACHE, Unspecified Referrals: Tre Castle MD [Primary Care Provider] - Additional Instructions: If your headache returns or worsens you can take either Tylenol or ibuprofen. Alternate every 4 hours as needed. If you develop worsening symptoms, vision changes or weakness please return to the emergency room. Otherwise, please follow-up with your primary care doctor next week.
[2019-07-30] MEDS: 0.9% Normal Saline 1,000 ML 999 ML IV (15:47)
[2019-07-30] MEDS: DiphenhydrAMINE 50 MG/ML Syringe 25 MG IV (15:47)
[2019-07-30] MEDS: proCHLORPERazine 10 MG/2 ML Vial IV (15:48)
[2019-07-30 15:52] LABS: Internal QC Validated? YES +Cl - CLEAR BKGD; Pregnancy, Urine Negative Negative
[2019-07-30] MEDS: Ketorolac 15 MG/ML Vial IV (16:44)
[2019-07-30 18:18] VITALS: BP 134/77; PULSE 62; RESP 15; O2SAT 98
== END 2019-07-30 18:19 | disposition home or self-care (01) ==
PROVIDERS: Emergency Provider Emergency Medicine; PCP Internal Medicine
DX: R51 Headache (principal); E11.9 Type 2 diabetes mellitus without complications; F17.200 Nicotine dependence, unspecified, uncomplicated; Z79.84 Long term (current) use of oral hypoglycemic drugs
CPT/HCPCS: 70450; 81025; 96361; 96374; 96375; 99283; J7030; A4216

== ENCOUNTER 2019-08-03 16:14 | Emergency (ER) | payer MEDICAID, SELFPAY ==
[2019-08-03 16:15] VITALS: BP 157/106; PULSE 97; RESP 16; TEMP 36.3; O2SAT 99; BMI 33.6
--- NOTE | 2019-08-03 16:26 | ED.VISSUMM ---
- ER Visit Summary Date of Service: 08/03/19 Chief Complaint: [Headache] History of Present Illness: The patient is a 23 F [presents to the emergency room complaint of a headache that started 2 weeks ago. Patient's had a headache intermittently and does tend to get better with ibuprofen as well as Tylenol but then it comes right back. She describes throbbing headache that is diffuse and severe at times. Patient describes photophobia and nausea. Patient has had a CT scan of her head within the last week that was unremarkable. Also she was started on an antibiotic for suspected sinusitis which she still currently on but cannot remember the name of. Patient denies any fevers. She denies any falls or head injuries. No family history of brain tumors or aneurysms.] Physical Examination: [HEENT-PERRLA, EOMI. Cranial nerves II through XII grossly intact. TMs clear. Mucous membranes moist. No adenopathy. Nontoxic-appearing. Cardiovascular-regular rate and rhythm without murmur or ectopy Lungs-clear to auscultation, chest wall stable without crepitus or subcu emphysema Abdomen-normoactive bowel sounds, soft, nontender, no rebound or rigidity, no peritoneal signs. Neuro mrko-negusm-fj-nose and heel garcia testing within normal limits, negative Romberg, negative pronator drift, fundi benign Extremities-intact ?4, normal range of motion, normal pulses, atraumatic] Test Results: None [Indicated] Emergency Department Course and Treatment: [Patient given a liter normal same fluid bolus as well as Reglan, Benadryl, and Toradol IV. Which resolved her headache.] Treatment Plan: [Patient to follow-up with her primary care physician 3 to 5 days.] Disposition: [Discharged home in stable condition.] Impression: [Migrainous cephalgia-resolved] This note was generated with [employer] dictation software. It may contain incorrect words, spelling, and punctuation that were not noted in review of the chart prior to signing ED Disposition - Plan for ED Patient: Referrals: Tre Castle MD [Primary Care Provider] -
[2019-08-03] MEDS: Ketorolac 30 MG/ML Syringe IV (16:38)
[2019-08-03] MEDS: 0.9% Normal Saline 1,000 ML 1000 ML IV (16:38)
[2019-08-03] MEDS: DiphenhydrAMINE 50 MG/ML Syringe 25 MG IV (16:39)
[2019-08-03] MEDS: dexAMETHasone 10 MG/ML Vial IV (16:40)
[2019-08-03] MEDS: Metoclopramide 10 MG/2 ML Vial IV (16:41)
--- NOTE | 2019-08-03 17:15 | ED.DEP ---
ED Disposition - Plan for ED Patient: Instructions: ED, Migraine (Classical) Referrals: Tre Castle MD [Primary Care Provider] - 3-5 Days
[2019-08-03 17:20] VITALS: BP 120/85; PULSE 80; RESP 17; O2SAT 98
== END 2019-08-03 17:21 | disposition home or self-care (01) ==
PROVIDERS: Emergency Provider Emergency Medicine; PCP Internal Medicine
DX: G43.909 Migraine, unspecified, not intractable, without status migrainosus (principal); E11.9 Type 2 diabetes mellitus without complications; Z79.84 Long term (current) use of oral hypoglycemic drugs; Z72.0 Tobacco use
CPT/HCPCS: 96361; 96374; 96375; 99283; J7030; A4216

== ENCOUNTER 2019-08-08 16:22 | Emergency (ER) | payer MEDICAID, SELFPAY ==
[2019-08-08 16:23] VITALS: BP 138/86; PULSE 97; RESP 16; TEMP 35.9; BMI 33.7
--- NOTE | 2019-08-08 16:37 | CT_ITS ---
STUDY: CT BRAIN WITHOUT CONTRAST REASON FOR EXAM: Female, 23 years old. Headache RADIATION DOSAGE (If Supplied By Facility): DLP = ( 745.49 ) mGycm TECHNIQUE: Transaxial CT imaging of the brain was performed without administration of intravenous contrast material. Individualized dose optimization techniques were used for this CT. COMPARISON: CT head July 30, 2019 FINDINGS: There is no acute bleed or infarct. There are normal white matter tracts. The ventricles are normal in configuration. There is no hydrocephalus. The visualized paranasal sinuses are clear. The mastoid air cells are well aerated. There is no skull fracture. CT/Brain/Head without Contrast IMPRESSION: No acute intracranial abnormality. Electronically Signed: Rayray Hernandez, at 17:27 EST Tel , Service support ,
[2019-08-08 16:38] VITALS: O2SAT 99
--- NOTE | 2019-08-08 16:39 | ED.VISSUMM ---
- ER Visit Summary Date of Service: 08/08/19 Chief Complaint: Headache History of Present Illness: The patient is a 23 F who presents with a headache that has been constant for the past 3 weeks. Patient describes her pain is sharp and throbbing. Patient states the pain is over the frontal area and left parietal area. Patient states pain is been constant. Patient states that her pain improves when her pushed on the back of her neck but then got worse when he stopped. Patient admits to some mild photophobia. Patient denies any visual changes or scotoma. Patient denies any nausea or vomiting. Patient denies any fevers or chills. Physical Examination: Vital signs are stable. Patient is afebrile. Patient is in no acute distress. Oral mucosa is pink and moist. Neck is supple. Trachea is midline. There is no JVD noted. Heart was regular rate and rhythm. Lungs are clear and equal bilaterally. Abdomen is soft. Bowel sounds are normal. There is no tenderness. There is no rebound or guarding noted. Skin is warm dry. Cranial nerves II through XII are intact. There are no focal motor or sensory deficits noted. Extremities are intact. There is no calf tenderness or edema. Test Results: CT scan of the brain was obtained. There is no acute intracranial abnormality. This was interpreted by the radiologist and reviewed by myself. Emergency Department Course and Treatment: Patient was given IV fluids, Reglan, and Benadryl. Patient states her headache has resolved. Patient was feeling better on reevaluation. Patient was instructed to follow-up with her primary care physician in 5 to 7 days. Patient understood and was agreeable with the plan. All questions were answered. Disposition: Discharge home Impression: 1. Headache This note was generated with [employer] software. It may contain incorrect words, spelling, and punctuation that were not noted in review of the chart prior to signing ED Disposition - Plan for ED Patient: Disposition: Home or Assisted Living Diagnosis: Headache Instructions: HEADACHE, Unspecified Referrals: Tre Castle MD [Primary Care Provider] - 5-7 Days
[2019-08-08] MEDS: 0.9% Normal Saline 1,000 ML 999 ML IV (16:48)
[2019-08-08] MEDS: DiphenhydrAMINE 50 MG/ML Syringe 25 MG IV (16:49)
[2019-08-08] MEDS: Metoclopramide 10 MG/2 ML Vial IV (16:50)
[2019-08-08 18:09] VITALS: BP 121/84; PULSE 72; RESP 16; O2SAT 99
== END 2019-08-08 18:09 | disposition home or self-care (01) ==
PROVIDERS: Emergency Provider Emergency Medicine; PCP Internal Medicine
DX: R51 Headache (principal); E11.9 Type 2 diabetes mellitus without complications; E66.9 Obesity, unspecified; Z68.33 Body mass index [BMI] 33.0-33.9, adult; Z79.84 Long term (current) use of oral hypoglycemic drugs; Z72.0 Tobacco use
CPT/HCPCS: 70450; 94760; 96361; 96374; 96375; 99283; J7030; A4216

== ENCOUNTER 2019-08-29 15:57 | Emergency (ER) | payer MEDICAID, SELFPAY ==
[2019-08-29 15:57] VITALS: BP 138/85; PULSE 101; RESP 18; TEMP 36.8; O2SAT 99; BMI 34.0
--- NOTE | 2019-08-29 16:19 | ED.DCSUM_ITS ---
History of Present Illness Chief Complaint: Abd Pain Informant: Patient Onset: Days Context: Gradual Onset Timing: Waxes and wanes Current Severity: Moderate Maximum Severity: Moderate Narrative: Patient presents with abdominal pain. She states she first noticed the pain 4 days ago, but it seemed to be better over the weekend. Pain worsened again today. She points in a line from the umbilicus to the suprapubic region. She is had some nausea but no vomiting. She denies urinary symptoms or diarrhea. Her last menstrual cycle was July 16. She had negative test here on July 19 and July 30. She has not taken a home test since that time. She has not had fever or chills. She is been able to eat without difficulty. Food does not seem to change her pain. - Past Medical History (1) Anxiety Status: Chronic (2) Sciatica Status: Chronic (3) Type 2 diabetes mellitus Status: Chronic Past Medical History - Allergies and Home Meds Allergies/Adverse Reactions: Allergies metformin Adverse Reaction (Verified 08/29/19 17:00) Diarrhea allergic to fast release Primary Care Physician: Tre Castle MD [Primary Care Provider] - Prior records reviewed: Yes Surgical History: cholecystectomy Lives: Spouse/ Significant Other Smoking Status: Current every day smoker Review of Systems General: Denies: Chills, Fever Eyes: Denies: Visual changes - bilaterally ENT: Denies: Bilateral ear pain Cardiovascular: Denies: Chest pain Respiratory: Denies: Dyspnea, Cough Gastrointestinal: Reports: Abdominal pain, Nausea. Denies: Vomiting, Diarrhea Genitourinary: Denies: Dysuria, Frequency Musculoskeletal: Denies: Back pain, Extremity Pain Skin: Denies: Rash Neurological: Denies: Headache Allergy: Denies: Uticaria Physical Exam Vital Signs/Narrative: Vital Signs Temp Pulse Resp BP Pulse Ox 08/29/19 15:57 98.2 F 101 H 18 138/85 H 99 Inital Vital Signs reviewed: Yes General: Well nourished, Well developed Head: Normocephalic ENT: Moist mucous membranes Neck: Supple Cardiovascular: Regular rate, Regular rhythm Respiratory: No distress, CTA bilaterally Abdomen: Soft, Normal bowel sounds, Tender - Moderate diffuse tenderness palpation. No guarding or rebound.. Negative for: Guarding, Rebound tenderness Extremities: Nontender Skin: Normal color Neurological: Alert, Oriented x3 Psychological: Normal affect Diagnostic/Tx/Re-eval Impressions Transvaginal US 08/29/19 18:45 IMPRESSION: 1. Stable right ovarian cyst. Left ovary is unremarkable 2. Thinning of the endometrium without other interval uterine change. Electronically Signed: Imer Mandujano DO at 19:53 EST Tel [phone], Service support , 08/29/19 18:45 Transvaginal Non- [US] Stat Laboratory Results 08/29/19 08/29/19 08/29/19 16:35 16:35 16:35 WBC 7.3 RBC 5.09 Hgb 14.6 Hct 43.0 MCV 84.5 MCH 28.7 MCHC 34.0 RDW Std Deviation 37.2 RDW Coeff of Susan 12.2 Plt Count 300 MPV 10.4 Immature Gran % (Auto) 0.100 Neut % (Auto) 47.2 Lymph % (Auto) 44.9 H Carlisle % (Auto) 5.9 Eos % (Auto) 1.5 Baso % (Auto) 0.4 Absolute Neuts (auto) 3.4 Absolute Lymphs (auto) 3.26 Nucleated RBC % 0 Sodium 137 Potassium 3.6 Chloride 105 Carbon Dioxide 28.0 Anion Gap 4 L BUN 10 Creatinine 0.66 Estim Creat Clear Calc 118.27 Est GFR (MDRD) Af Amer 142 Est GFR (MDRD) Non-Af 117 BUN/Creatinine Ratio 15.2 Glucose 144 H Calcium 9.3 Total Bilirubin 0.50 Direct Bilirubin 0.12 AST 29 ALT 57 H Alkaline Phosphatase 64 Total Protein 8.1 Albumin 3.9 Globulin 4.2 Serum , Qual NEGATIVE Urine Color Urine Clarity Urine pH Ur Specific [place] Urine Protein Urine Glucose (UA) Urine Ketones Urine Occult Blood Urine Nitrite Urine Bilirubin Urine Urobilinogen Ur Leukocyte Esterase Urine RBC Urine WBC Ur Squamous Epith Cells Urine Bacteria Urine Mucus 08/29/19 16:45 WBC RBC Hgb Hct MCV MCH MCHC RDW Std Deviation RDW Coeff of Susan Plt Count MPV Immature Gran % (Auto) Neut % (Auto) Lymph % (Auto) Carl[place] % (Auto) Eos % (Auto) Baso % (Auto) Absolute Neuts (auto) Absolute Lymphs (auto) Nucleated RBC % Sodium Potassium Chloride Carbon Dioxide Anion Gap BUN Creatinine Estim Creat Clear Calc Est GFR (MDRD) Af Amer Est GFR (MDRD) Non-Af BUN/Creatinine Ratio Glucose Calcium Total Bilirubin Direct Bilirubin AST ALT Alkaline Phosphatase Total Protein Albumin Globulin Serum , Qual Urine Color Yellow Urine Clarity Sl. Cloudy Urine pH 6.0 Ur Specific [place] 1.020 Urine Protein Negative Urine Glucose (UA) 250 H Urine Ketones 5 H Urine Occult Blood Negative Urine Nitrite Negative Urine Bilirubin Negative Urine Urobilinogen 1 H Ur Leukocyte Esterase Negative Urine RBC 0 SEEN Urine WBC 0-5 SEEN Ur Squamous Epith Cells 10-25 SEEN Urine Bacteria 1+ Urine Mucus RARE - Medical Decision Making Patient was initially given morphine and Zofran for pain. Labs are reviewed. She had CT scan and pelvic ultrasound performed a month ago. The studies are reviewed. She did have evidence of a right ovarian cyst at that time. Due to worsening pain repeat pelvic ultrasound is obtained which shows really no significant change in the ovarian cyst size. There is good blood flow to the ovary. Prior to ultrasound patient was given a second dose of morphine along with Toradol and Zofran. At this time patient is resting comfortably. She will be given prescriptions for naproxen and Bentyl. I encouraged her to follow-up with [facility]. I advised her I am unsure if her pain is related to the ovarian cyst as it has not significantly changed in size, does not appear to be draining fluid, and has not caused torsion. ED Disposition - Plan for ED Patient: Disposition: Home or Assisted Living Diagnosis: Pelvic pain Instructions: ABDOMINAL PAIN, Unknown Cause, (Female) Prescriptions: Dicyclomine HCl [Bentyl] 20 mg PO TIDAC #20 cap Transmission Status: Pending to [id number] Naproxen [Naprosyn] 500 mg PO BID PRN PRN #20 tab PRN Reason: Pain Score 4-10/10 Transmission Status: Pending to [facility] Referrals: Tre Castle MD [Primary Care Provider] - Kelle Longoria MD [STAFF PHYSICIAN] - As soon as possible
[2019-08-29 16:50] LABS: Absolute Lymphocyte Count 3.26 X10^3/uL (0.83-4.51); Absolute Neutrophil Count 3.4 X10^3/uL (2.0-7.7); Basophil# 0.03 X10^3/uL; Basophil% 0.4 % (0-1); Eosinophil# 0.11 X10^3/uL; Eosinophils% 1.5 % (0-5); Hemoglobin 14.6 g/dL (12.0-15.0); Lymphocyte # 3.26 X10^3/ul (4.0); Lymphocyte % 44.9 % (19-41); Mean Corpuscular Hgb 28.7 pg (27.0-32.0); Mean Corpuscular Volume 84.5 fL (81-99); Mean Platelet Vol. 10.4 fl (6.2-12.0); Monocyte# 0.43 X10^3/uL; Monocyte% 5.9 % (0-10); NRBC Flagged by Analyzer 0 % (0-5); Neutrophil # 3.42 X10^3/uL (2.7-7.7); Neutrophil % 47.2 % (47-70); Platelet Count 300 K/mm3 (150-450); RBC Distribution Width CV 12.2 % (11.6-14.6); RBC Distribution Width SD 37.2 fl (35.1-43.9); Red Blood Count 5.09 M/mm3 (4.2-5.4); White Blood Count 7.3 K/mm3 (4.4-11.0)
[2019-08-29] MEDS: 0.9% Normal Saline 1,000 ML 150 ML IV (16:53)
[2019-08-29] MEDS: Morphine 4 MG/ML Syringe IV ×2 (16:53→18:56)
[2019-08-29] MEDS: Ondansetron 4 MG/2 ML Vial IV (16:53)
[2019-08-29 16:58] LABS: Red Blood Cells-Urine 0 SEEN /hpf (0-5)
[2019-08-29 17:02] LABS: Color, Urine Yellow (Yellow); Glucose, Dipstick 250 mg/dl (Normal); Ketone-Dipstick 5 mg/dl (Negative); Leukocyte Esterase-Dipstick Negative /ul (Negative); Nitrite-Dipstick Negative (Negative); Occult Blood-Urine Negative /ul (Negative); Protein-Dipstick Negative (Negative); Urine Bilirubin Dipstick Negative (Negative); Urine Clarity Sl. Cloudy (Clear); Urine Urobilinogen 1 mg/dl (Normal)
[2019-08-29 17:05] LABS: AST(SGOT) 29 U/L (15-37); Alanine Aminotransfer ALT/SGPT 57 U/L (13-56); Albumin, Serum 3.9 g/dL (3.2-5.0); Alkaline Phosphatase 64 U/L (45-117); Anion Gap 4 (5-15); BUN 10 mg/dL (7-18); BUN/Creat Ratio 15.2 RATIO (10-20); Bilirubin, Direct 0.12 mg/dL (0.00-0.30); Calcium,Total 9.3 mg/dL (8.5-10.1); Chloride 105 mmol/L (98-107); Creatinine, Serum 0.66 mg/dL (0.55-1.02); EST Glomerular Filtration Rate 117 mL/min (>60); Est Glom Filt Rate - Afr Amer 142 mL/min (>60); Estimated Creatinine Clearance 118.27 ml/min; Globulin 4.2 g/dL (2.2-4.2); Glucose 144 mg/dL (74-106); Potassium 3.6 mmol/L (3.5-5.1); Protein, Total 8.1 g/dL (6.4-8.2); Sodium Level 137 mmol/L (136-145)
[2019-08-29 17:12] LABS: Internal QC Validated? YES +Cl - CLEAR BKGD; Pregnancy, Serum, hCG Quali. NEGATIVE Negative
[2019-08-29 17:26] LABS: Mucous, Urine RARE /hpf (<or=2+)
[2019-08-29 17:28] LABS: Bacteria 1+ /hpf (None Seen); White Blood Cells 0-5 SEEN /hpf (0-5)
[2019-08-29 17:29] LABS: Squamous Epithelial Cells - UA 10-25 SEEN /hpf (5-10)
--- NOTE | 2019-08-29 18:45 | US_ITS ---
STUDY: ULTRASOUND OF THE FEMALE PELVIS - LIMITED REASON FOR EXAM: Female, 24 years old. Lower pelvic pain, severe tonight. Nausea. TECHNIQUE: Transvaginal TECHNICAL QUALITY: Adequate. COMPARISON: Pelvic ultrasound, July 13, 2019. CT of the abdomen and pelvis, July 11, 2019. FINDINGS: The uterus is anteverted and is in a midline position. The uterus measures 5.0 x 3.6 x 2.6 cm. Normal uterine cervix. The endometrium measures 4 mm in thickness, and is heterogeneous (striated). There is no demonstrated endometrial mass. There is no demonstrated myometrial mass. The right ovary measures 4.2 x 2.4 x 1.9 cm. There is a 1.4 x 1.2 x 0.8 cm dominant follicle versus cyst. There is no visualized right adnexal mass or complex lesion. There is normal arterial and normal venous vascularity. The left ovary measures 2.9 x 2.4 x 1.8 cm. There are multiple follicles of the left ovary without a dominant cyst. There is no visualized left adnexal mass or complex lesion. There is normal arterial and normal venous vascularity. There is no fluid in the cul-de-sac. US/Transvaginal Non- IMPRESSION: 1. Stable right ovarian cyst. Left ovary is unremarkable 2. Thinning of the endometrium without other interval uterine change. Electronically Signed: Imer Mandujano DO at 19:53 EST Tel [phone], Service support ,
[2019-08-29] MEDS: Ketorolac 30 MG/ML Syringe IV (18:56)
[2019-08-29 18:58] VITALS: BP 125/95; PULSE 76; RESP 18; O2SAT 98
[2019-08-29 20:13] VITALS: BP 113/84; PULSE 94; RESP 16; O2SAT 96
[2019-08-29 20:50] VITALS: RESP 16
== END 2019-08-29 20:51 | disposition home or self-care (01) ==
PROVIDERS: Emergency Provider Emergency Medicine; PCP Internal Medicine
DX: R10.2 Pelvic and perineal pain (principal); R11.0 Nausea; N83.201 Unspecified ovarian cyst, right side; E11.9 Type 2 diabetes mellitus without complications; F41.9 Anxiety disorder, unspecified; F17.200 Nicotine dependence, unspecified, uncomplicated; Z90.49 Acquired absence of other specified parts of digestive tract; Z79.84 Long term (current) use of oral hypoglycemic drugs
CPT/HCPCS: 76830; 80048; 80076; 81001; 84703; 85025; 93976; 96361; 96374; 96375; 99283; J7030; A4216; J2405

== ENCOUNTER 2019-09-03 17:15 | Emergency (ER) | payer MEDICAID, SELFPAY ==
[2019-09-03 17:18] VITALS: BP 139/89; PULSE 102; RESP 18; TEMP 36.2; O2SAT 98; BMI 33.5
--- NOTE | 2019-09-03 17:20 | NURSING ---
NO OLD EKGS
--- NOTE | 2019-09-03 17:24 | EKG12_ITS ---
Test Reason : CP Blood Pressure : / mmHG Vent. Rate : 099 BPM Atrial Rate : 099 BPM P-R Int : 150 ms QRS Dur : 078 ms QT Int : 346 ms P-R-T Axes : 040 087 012 degrees QTc Int : 444 ms Normal sinus rhythm Normal ECG Confirmed by MOY HALE MD ([id number]), food expeditor MARU VILLAR ([id number]) on 09/04/2019 10:39:10 AM Referred By: Confirmed By:MOY HALE MD
--- NOTE | 2019-09-03 17:32 | RAD_ITS ---
STUDY: X-RAY CHEST REASON FOR EXAM: Female, 24 years old. PT WITH INTERMITTENT CP TECHNIQUE: Single frontal view of the chest. COMPARISON: None. FINDINGS: Cardiac silhouette unremarkable. Pulmonary vascularity unremarkable. Aorta unremarkable. No focal airspace opacities. No pleural effusions. Upper abdomen unremarkable. Osseous structures intact. No pneumothorax. RAD/Chest 1 View (Portable) IMPRESSION: No acute cardiopulmonary findings Electronically Signed: Diego Almanzar, at 18:18 EST Tel , Service support ,
--- NOTE | 2019-09-03 17:32 | ED.VIS.GEN ---
History of Present Illness Chief Complaint: Chest Pain Informant: Patient Onset: Today Timing: Waxes and wanes Current Severity: Moderate Maximum Severity: Moderate Narrative: Patient presents with chest heaviness, worse with movement or deep breath. She states she feels like she cannot get a deep breath. She denies history of cardiac disease. No recent URI symptoms. She has been seen recently for lower abdominal pain. - Past Medical History (1) Type 2 diabetes mellitus Status: Chronic (2) Anxiety Status: Chronic (3) Sciatica Status: Chronic Past Medical History - Allergies and Home Meds Allergies/Adverse Reactions: Allergies metformin Adverse Reaction (Verified 09/03/19 17:16) Diarrhea allergic to fast release Primary Care Physician: Tre Castle MD [Primary Care Provider] - Prior records reviewed: Yes Surgical History: cholecystectomy Lives: Spouse/ Significant Other Smoking Status: Current every day smoker Review of Systems General: Denies: Chills, Fever Eyes: Denies: Visual changes - bilaterally ENT: Denies: Bilateral ear pain Cardiovascular: Reports: Chest pain Respiratory: Reports: Dyspnea. Denies: Cough Gastrointestinal: Denies: Abdominal pain, Nausea, Vomiting, Diarrhea Genitourinary: Denies: Dysuria Musculoskeletal: Denies: Swelling, Extremity Pain Skin: Denies: Rash Neurological: Denies: Headache Hematologic: Denies: Easy bruising, Easy bleeding Allergy: Denies: Uticaria Physical Exam Vital Signs/Narrative: Vital Signs Temp Pulse Resp BP Pulse Ox 09/03/19 17:18 97.2 F L 102 H 18 139/89 H 98 Inital Vital Signs reviewed: Yes General: Well nourished, Well developed Head: Normocephalic ENT: Moist mucous membranes Neck: Supple Cardiovascular: Regular rate, Regular rhythm Respiratory: No distress, CTA bilaterally, Chest tenderness - Reproducible peristernal chest tenderness. Abdomen: Soft, Nontender Back: Nontender Extremities: Nontender Skin: Normal color, No rash Neurological: Alert, Oriented x3 Psychological: Normal affect Diagnostic/Tx/Re-eval Impressions Chest X-Ray 09/03/19 17:32 IMPRESSION: No acute cardiopulmonary findings Electronically Signed: Diego Almanzar, at 18:18 EST Tel , Service support , Chest CTA 09/03/19 18:08 IMPRESSION: Limited evaluation of the peripheral pulmonary arteries. There is no large central pulmonary embolism identified. No acute pulmonary parenchymal process. Electronically Signed: Diego Almanzar, at 19:29 EST Tel , Service support , 09/03/19 17:32 Chest 1 View (Portable) [RAD] Stat 09/03/19 18:08 CTA Chest W/WO Contrast [CT] Stat Laboratory Results 09/03/19 09/03/19 09/03/19 17:30 17:30 17:30 WBC 7.7 RBC 5.18 Hgb 15.1 H Hct 44.2 MCV 85.3 MCH 29.2 MCHC 34.2 RDW Std Deviation 38.2 RDW Coeff of Susan 12.3 Plt Count 319 MPV 10.5 Immature Gran % (Auto) 0.300 Neut % (Auto) 48.9 Lymph % (Auto) 42.9 H Nolan % (Auto) 5.8 Eos % (Auto) 1.6 Baso % (Auto) 0.5 Absolute Neuts (auto) 3.8 Absolute Lymphs (auto) 3.30 Nucleated RBC % 0 D-Dimer Quant (PE/DVT) 0.57 H* Sodium 136 Potassium 3.8 Chloride 104 Carbon Dioxide 25.0 Anion Gap 7 BUN 19 H Creatinine 0.76 Estim Creat Clear Calc 102.71 Est GFR (MDRD) Af Amer 121 Est GFR (MDRD) Non-Af 100 BUN/Creatinine Ratio 25.1 H Glucose 241 H Calcium 9.6 Troponin I < 0.015 - EKG Initial EKG Interpretation: Sinus Rhythm - Sinus at 99 with no acute ischemia. - Medical Decision Making Patient is initially given Toradol. She reported essentially no improvement in her pain with this. Nursing staff states she was crying and holding her chest. She was given 0.5 mg of Ativan along with a single tab of Clay. On repeat evaluation she is resting comfortably. Test results are discussed with her. This time I see no significant cardiac or pulmonary cause of her symptoms. She does have reproducible chest wall pain. It is likely either musculoskeletal or costochondritis. She is already on naproxen and will continue this. We will add a short burst of steroids to help calm down inflammation. Patient is comfortable with this plan. ED Disposition - Plan for ED Patient: Disposition: Home or Assisted Living Diagnosis: Costochondritis Instructions: CHEST WALL PAIN, Costochondritis Prescriptions: Prednisone [Deltasone] 40 mg PO DAILY #10 tab Transmission Status: Pending to [id number] Referrals: Tre Castle MD [Primary Care Provider] - 1 Week if not improving
[2019-09-03 17:45] LABS: Absolute Neutrophil Count 3.8 X10^3/uL (2.0-7.7); Basophil# 0.04 X10^3/uL; Basophil% 0.5 % (0-1); Eosinophil# 0.12 X10^3/uL; Eosinophils% 1.6 % (0-5); Hematocrit 44.2 % (37-47); Hemoglobin 15.1 g/dL (12.0-15.0); Lymphocyte % 42.9 % (19-41); Mean Corp Hgb Conc 34.2 g/dL (32-36); Mean Corpuscular Hgb 29.2 pg (27.0-32.0); Mean Corpuscular Volume 85.3 fL (81-99); Mean Platelet Vol. 10.5 fl (6.2-12.0); Monocyte# 0.45 X10^3/uL; Monocyte% 5.8 % (0-10); NRBC Flagged by Analyzer 0 % (0-5); Neutrophil # 3.77 X10^3/uL (2.7-7.7); Neutrophil % 48.9 % (47-70); Platelet Count 319 K/mm3 (150-450); RBC Distribution Width CV 12.3 % (11.6-14.6); RBC Distribution Width SD 38.2 fl (35.1-43.9); Red Blood Count 5.18 M/mm3 (4.2-5.4); White Blood Count 7.7 K/mm3 (4.4-11.0)
[2019-09-03 17:59] LABS: D-Dimer Quantitative (DVT/PE) 0.57 FEU/ug/m (0.27-0.49)
[2019-09-03 18:03] LABS: Anion Gap 7 (5-15); BUN 19 mg/dL (7-18); BUN/Creat Ratio 25.1 RATIO (10-20); Calcium,Total 9.6 mg/dL (8.5-10.1); Chloride 104 mmol/L (98-107); Creatinine, Serum 0.76 mg/dL (0.55-1.02); EST Glomerular Filtration Rate 100 mL/min (>60); Est Glom Filt Rate - Afr Amer 121 mL/min (>60); Estimated Creatinine Clearance 102.71 ml/min; Glucose 241 mg/dL (74-106); Potassium 3.8 mmol/L (3.5-5.1); Sodium Level 136 mmol/L (136-145)
[2019-09-03] MEDS: 0.9% Normal Saline 1,000 ML 150 ML IV (18:03)
[2019-09-03] MEDS: Ketorolac 30 MG/ML Syringe IV (18:03)
--- NOTE | 2019-09-03 18:08 | CT_ITS ---
STUDY: CTA CHEST REASON FOR EXAM: Female, 24 years old. CP INTERMITTENT WORSE WITH MOVEMENT, INCREASED WITH DEEP INSPIRATION RADIATION DOSAGE (If Supplied By Facility): CTDIvol = ( 12.38 ) mGy, DLP = ( 470.13 ) mGycm TECHNIQUE: The examination was performed with the intravenous administration of IV 100mL Isovue-370. Post-processing of the angiographic images was performed, with multiplanar reformation and 3D reconstruction. Individualized dose optimization techniques were used for this CT. COMPARISON: None. FINDINGS: Normal enhancement of the main pulmonary artery and right and left pulmonary arteries. There is limited enhancement of the bilateral peripheral pulmonary arteries. There is no demonstrated large central pulmonary embolism. Normal thoracic aorta and visualized great vessels. There is an aberrant right subclavian artery. There is no demonstrated aortic dissection. Normal heart and pericardium. Normal mediastinum. Normal hilar regions. Normal visualized trachea and bronchi. The lungs are well expanded. Normal pulmonary parenchyma. Normal pleura. Normal chest wall structures. Normal osseous structures. There is diffuse fatty infiltration of the liver. CT/CTA Chest W/WO Contrast IMPRESSION: Limited evaluation of the peripheral pulmonary arteries. There is no large central pulmonary embolism identified. No acute pulmonary parenchymal process. Electronically Signed: Diego Almanzar, at 19:29 EST Tel , Service support ,
[2019-09-03 19:16] VITALS: BP 137/108; PULSE 101; RESP 29; O2SAT 96
[2019-09-03] MEDS: LORazepam 2 MG/ML Syringe 0.5 MG IV (19:17)
[2019-09-03] MEDS: HYDROcodone Bitartrate/Apap 5/325 Tablet PO (19:18)
[2019-09-03] MEDS: predniSONE 20 MG Tablet 40 MG PO (19:58)
[2019-09-03 19:59] VITALS: BP 124/92; PULSE 82; RESP 18; O2SAT 98
== END 2019-09-03 19:59 | disposition home or self-care (01) ==
PROVIDERS: Emergency Provider Emergency Medicine; PCP Internal Medicine
DX: M94.0 Chondrocostal junction syndrome [Tietze] (principal); E11.9 Type 2 diabetes mellitus without complications; F41.9 Anxiety disorder, unspecified; F17.200 Nicotine dependence, unspecified, uncomplicated; Z79.84 Long term (current) use of oral hypoglycemic drugs
CPT/HCPCS: 71045; 71275; 80048; 84484; 85025; 85379; 93005; 96361; 96374; 96375; 99284; J7030; Q9967; A4216

== ENCOUNTER 2019-09-14 14:46 | Emergency (ER) | payer MEDICAID, SELFPAY ==
[2019-09-14 14:46] VITALS: BP 131/88; PULSE 60; RESP 16; TEMP 37; O2SAT 97; BMI 34.8
--- NOTE | 2019-09-14 15:14 | EKG12_ITS ---
Test Reason : CP Blood Pressure : / mmHG Vent. Rate : 077 BPM Atrial Rate : 077 BPM P-R Int : 154 ms QRS Dur : 080 ms QT Int : 372 ms P-R-T Axes : 030 068 017 degrees QTc Int : 420 ms Normal sinus rhythm Normal ECG Confirmed by JUANITO GÓMEZ, MOHAN ([id number]), telegraph editor JONH GALARZA ([id number]) on 09/15/2019 1:08:35 PM Referred By: IFEANYI Confirmed By:WILMAN SOLOMON MD
--- NOTE | 2019-09-14 15:22 | RAD_ITS ---
STUDY: X-RAY CHEST REASON FOR EXAM: Female, 24 years old. CHEST PAIN TECHNIQUE: Single AP portable view of the chest. COMPARISON: Comparison is made with prior study dated September 03, 2019. FINDINGS: EKG electrodes are seen. The lungs are clear and expanded. There is no demonstrated pleural abnormality. Normal size heart. Normal mediastinum and harmeet. Normal visualized pulmonary arteries. Normal visualized aortic arch and descending thoracic aorta. Normal visualized thoracic spine. Normal visualized ribs, clavicles, and shoulders. There is no demonstrated abnormality of the visualized soft tissue structures of the upper abdomen. RAD/Chest 1 View (Portable) IMPRESSION: Normal x-ray examination of the chest. Electronically Signed: Kaz Taylor, at 15:33 EDT , Service support ,
[2019-09-14] MEDS: Ketorolac 15 MG/ML Vial IV (15:26)
[2019-09-14] MEDS: 0.9% Normal Saline 1,000 ML 1000 ML IV (15:26)
[2019-09-14 15:28] LABS: Absolute Lymphocyte Count 3.31 X10^3/uL (0.83-4.51); Absolute Neutrophil Count 4.5 X10^3/uL (2.0-7.7); Basophil# 0.03 X10^3/uL; Basophil% 0.4 % (0-1); Eosinophil# 0.11 X10^3/uL; Eosinophils% 1.3 % (0-5); Hematocrit 39.9 % (37-47); Hemoglobin 13.1 g/dL (12.0-15.0); Lymphocyte # 3.31 X10^3/ul (4.0); Mean Corp Hgb Conc 32.8 g/dL (32-36); Mean Corpuscular Hgb 27.8 pg (27.0-32.0); Mean Corpuscular Volume 84.5 fL (81-99); Mean Platelet Vol. 10.7 fl (6.2-12.0); Monocyte# 0.48 X10^3/uL; Monocyte% 5.7 % (0-10); NRBC Flagged by Analyzer 0 % (0-5); Neutrophil # 4.54 X10^3/uL (2.7-7.7); Neutrophil % 53.4 % (47-70); Platelet Count 287 K/mm3 (150-450); RBC Distribution Width CV 12.8 % (11.6-14.6); Red Blood Count 4.72 M/mm3 (4.2-5.4); White Blood Count 8.5 K/mm3 (4.4-11.0)
[2019-09-14 15:32] LABS: Internal QC Validated? YES +Cl - CLEAR BKGD; Pregnancy, Serum, hCG Quali. NEGATIVE Negative
[2019-09-14 15:43] LABS: Anion Gap 8 (5-15); BUN 9 mg/dL (7-18); BUN/Creat Ratio 17.2 RATIO (10-20); Calcium,Total 9.5 mg/dL (8.5-10.1); Chloride 105 mmol/L (98-107); Creatinine, Serum 0.52 mg/dL (0.55-1.02); EST Glomerular Filtration Rate 153 mL/min (>60); Est Glom Filt Rate - Afr Amer 185 mL/min (>60); Estimated Creatinine Clearance 150.11 ml/min; Glucose 127 mg/dL (74-106); Potassium 3.7 mmol/L (3.5-5.1); Sodium Level 139 mmol/L (136-145)
--- NOTE | 2019-09-14 15:49 | ED.VISSUMM ---
- ER Visit Summary Date of Service: 09/14/19 Chief Complaint: Chest pain, syncope History of Present Illness: The patient is a [address] Castle. She reports that she has had chest pain that is been present for the past 2 weeks. States that she has been seen here and at [place]. It is a sharp, stabbing pain that is 9 out of 10 at worst and 6 out of 10 currently. Is intermittent pain that lasts hours at a time. Is worsened by exertion is relieved by Flexeril. She does report she had shortness of breath. She denies any nausea, vomiting, or diaphoresis. Patient reports that she was at work she had been standing for 2 to 3 minutes and was walking when she began feeling lightheaded and shaky. She had a syncopal episode. She denies any injuries from the fall. She is not on anticoagulants. Patient has no personal or family history of DVT. No recent travel. She is not on control pills. She does smoke quarter pack per day. She had a CTA of her chest on September 02 that was negative. Physical Examination: Vitals: Stable. Afebrile. General: Well-nourished and well-developed. Head: Normocephalic atraumatic. Neck: Supple, no lymphadenopathy. No JVD. Nontender. Cardiovascular: Regular rate and rhythm. No murmurs. Respiratory: No respiratory distress. Clear to auscultation bilaterally. Nontender palpation over the costochondral margin bilaterally that does reproduce her pain. Abdominal: Soft, nontender, nondistended, normal bowel sounds. No guarding, rebound, or peritoneal signs. Back: Nontender. Extremities: Nontender, no edema. Skin: Normal color, no rash. Neurologic: Alert and oriented ?3. Cranial nerves II through XII are intact. Normal strength and sensation. Psych: Normal affect. Test Results: EKG is sinus at 77. No acute changes. Normal intervals. No NENA or Brugada. Troponin is negative. test is negative. Chem-7 shows creatinine 0.52 glucose 127. CBC is normal. Clinical Impression(s) from Imaging Studies Chest X-Ray 09/14/19 15:22 IMPRESSION: Normal x-ray examination of the chest. Electronically Signed: Kaz Taylor, at 15:33 EDT , Service support , Emergency Department Course and Treatment: Patient's pain has been present for 2 weeks. It is very atypical. She has had multiple work-ups that are negative. She was given a dose of Toradol IV. She has reports that her pain has worsened. I do not think that this represents an acute coronary syndrome. She has no evidence of a pneumothorax. No evidence of esophageal rupture. Treatment Plan: Patient will be discharged with symptomatic care. Use Tylenol and ibuprofen for pain. If the Flexeril seems to help continue to use that. Follow-up with her primary care physician within 3 to 5 days for another exam. Return to the emergency department for any worsening symptoms. Disposition: To home in improved and stable condition. Impression: 1. Atypical chest pain. 2. Syncope. This note was generated with [employer] dictation software. It may contain incorrect words, spelling, and punctuation that were not noted in review of the chart prior to signing ED Disposition - Plan for ED Patient: Instructions: CHEST PAIN, Uncertain Cause Referrals: Tre Castle MD [Primary Care Provider] - 3-5 Days
[2019-09-14 16:28] VITALS: BP 128/89; PULSE 80; RESP 18; O2SAT 100
== END 2019-09-14 16:29 | disposition home or self-care (01) ==
PROVIDERS: Emergency Provider Emergency Medicine; PCP Internal Medicine
DX: R07.89 Other chest pain (principal); R55 Syncope and collapse; E11.9 Type 2 diabetes mellitus without complications; F32.9 Major depressive disorder, single episode, unspecified; K21.9 Gastro-esophageal reflux disease without esophagitis; F17.200 Nicotine dependence, unspecified, uncomplicated; Z79.84 Long term (current) use of oral hypoglycemic drugs
CPT/HCPCS: 71045; 80048; 84484; 84703; 85025; 93005; 96361; 96374; 99285; J7030; A4216

== ENCOUNTER 2019-10-18 19:21 | Emergency (ER) | payer MEDICAID, SELFPAY ==
[2019-10-18 19:22] VITALS: BP 121/92; PULSE 111; RESP 17; TEMP 36; O2SAT 99; BMI 34.2
--- NOTE | 2019-10-18 19:55 | CM.ED ---
SOCIAL WORK REASON FOR REFERRAL: PENDING ED CARE PLAN REVIEWED CASE WITH DR. BRASWELL AND UPDATED ON PENDING ED CARE PLAN. MET WITH PATIENT IN ROOM. INTRODUCED ROLE AND REASON FOR REFERRAL. EXPLAINED ED CARE PLAN AND INFORMED PATIENT THAT SHE HAS BEEN REFERRED FOR ED CARE PLAN DUE TO FREQUENT VISITS. EDUCATED PATIENT THAT ONCE ED CARE PLAN HAS BEEN APPROVED A COPY OF THE PLAN WILL BE MAILED TO PATIENT ALONG WITH ADDITIONAL RESOURCES. PATIENT VERBALIZED UNDERSTANDING. PATIENT VERIFIED ADDRESS AND PHONE NUMBER: [id number] [facility] [id number], . PATIENT REPORTS FOLLOWS WITH DR. FELIPE. PATIENT REPORTS HISTORY OF ANXIETY/DEPRESSION FOR 1 YEAR. PATIENT STATES DOES NOT KNOW WHAT TRIGGERED ANXIETY THIS DAY. STATES ANXIETY HAS BEEN OFF AND ON ALL DAY. PATIENT STATES HAS SUFFERED 2 MISCARRIAGES. EMOTIONAL SUPPORT AND ACTIVE LISTENING PROVIDED. PATIENT OPEN TO INFORMATION ON LOCAL MENTAL HEALTH PROVIDERS. PATIENT DECLINES NEED FOR THIS WORKER TO SET UP APPOINTMENT. RESOURCES PROVIDED. DR. BRASWELL UPDATED ON THE ABOVE. PLAN: HOME WITH RESOURCES PROVIDED Rocky WALSH MSW, [employer].
--- NOTE | 2019-10-18 20:05 | ED.DCSUM_ITS ---
- ER Visit Summary Date of Service: 10/18/19 Chief Complaint: Acute anxiety History of Present Illness: The patient is a 24 F who presents with anxiety attack that is been coming and going for the last 4 hours. Patient states nothing in particular brings on her panic attacks. Patient states nothing seems to help. Patient denies any suicidal homicidal ideations. Patient states that during her panic attack she feels like she has to scratch herself. Patient states she does feel short of breath at times with her panic attacks. Patient denies any chest pain. Patient denies any recent fevers or chills. Patient denies any cough. Patient denies any nausea or vomiting. Physical Examination: Vital signs are stable except for mild tachycardia of 111. Patient is afebrile. Patient is in no acute distress. Oral mucosa is pink and moist. Neck is supple. Trachea is midline. There is no JVD noted. Heart was regular rate and rhythm. Lungs are clear and equal bilaterally. Abdomen is soft. Bowel sounds are normal. There is no tenderness. There is no rebound or guarding noted. Skin is warm dry. Cranial nerves II through XII are intact. There are no focal motor or sensory deficits noted. Extremities are intact. There is no calf tenderness or edema. Patient is anxious on examination. Patient denies any suicidal homicidal ideations. Emergency Department Course and Treatment: Patient was given a dose of Vistaril here. field crop farmworker was in to see the patient and provided additional resources to help with her anxiety. Patient was still feeling somewhat anxious on reevaluation. Patient was given a repeat dose of Vistaril. Patient was given a prescription for a short course of Vistaril. Patient was instructed to follow- up with her primary care physician in 3 to 5 days. Patient was also instructed to follow-up with counseling center. Patient understood and was agreeable with the plan. All questions were answered. Disposition: Discharge home Impression: Acute anxiety This note was generated with [employer] dictation software. It may contain incorrect words, spelling, and punctuation that were not noted in review of the chart prior to signing ED Disposition - Plan for ED Patient: Disposition: Home or Assisted Living Diagnosis: Anxiety Instructions: ED Panic Attack Prescriptions: hydrOXYzine pamoate capsule [Vistaril] 25 mg PO TID PRN PRN #10 cap PRN Reason: Anxiety Prescription Printed Referrals: Tre Castle MD [Primary Care Provider] - 3-5 Days Counseling,Center [GROUP OF PHYSICIANS] - 3-5 Days
[2019-10-18] MEDS: hydrOXYzine PAM 25 MG Capsule PO ×2 (20:19→20:58)
--- NOTE | 2019-10-28 20:50 | CM.ED ---
Social Work ED Care Plan approved for patient. Notified patient via phone conversation. ED Care Plan entered in [email or web address] ([employer]). ED Care Plan and resources mailed. Tracking #[id number]. ED Care Plan faxed to PCP. Will continue to follow as needed. Radha [place], ARMIDA
== END 2019-10-18 21:01 | disposition home or self-care (01) ==
PROVIDERS: Emergency Provider Emergency Medicine; PCP Internal Medicine
DX: F41.0 Panic disorder [episodic paroxysmal anxiety] (principal); E11.9 Type 2 diabetes mellitus without complications; E66.9 Obesity, unspecified; Z68.34 Body mass index [BMI] 34.0-34.9, adult; Z79.84 Long term (current) use of oral hypoglycemic drugs; Z72.0 Tobacco use
CPT/HCPCS: 99283

== ENCOUNTER 2019-12-18 14:53 | Emergency (ER) | payer MEDICAID, SELFPAY ==
[2019-12-18 14:55] VITALS: BP 118/79; PULSE 105; RESP 17; TEMP 36.8; O2SAT 98; BMI 34.2
--- NOTE | 2019-12-18 15:05 | RAD_ITS ---
STUDY: X-RAY - LEFT KNEE REASON FOR EXAM: Female, 24 years old. Injury while hiking, pain TECHNIQUE: 3 view(s) of the knee. COMPARISON: None. FINDINGS: Normal visualized distal femur. Normal visualized proximal tibia and fibula. Normal proximal tibiofibular articulation. Normal medial femorotibial compartment. Normal lateral femorotibial compartment. Normal patellofemoral articulation. The soft tissue structures are unremarkable. RAD/Knee 3 Views IMPRESSION: Normal x-ray examination of the knee. Electronically Signed: Kaz Taylor, at 15:50 EDT , Service support ,
--- NOTE | 2019-12-18 15:05 | RAD_ITS ---
STUDY: X-RAY - LEFT FOOT CLINICAL: Female, 24 years old. Injury while hiking, pain TECHNIQUE: 3 view(s) of the foot. COMPARISON: None. FINDINGS: Normal talus, calcaneus, and tarsal bones. Normal visualized subtalar, talonavicular, calcaneocuboid, tarsal and tarsometatarsal articulations. Normal metatarsi. Normal metatarsophalangeal joint of the great toe. Normal tibial and fibular sesamoid bones. Normal interphalangeal joint of the great toe. Normal phalanges of the great toe. Normal second through fifth metatarsophalangeal joints. Normal interphalangeal joints and phalanges of the lesser toes. The soft tissue structures are unremarkable. RAD/Foot min 3 Views IMPRESSION: Normal x-ray examination of the foot. Electronically Signed: Kaz Taylor, at 15:48 EDT , Service support ,
--- NOTE | 2019-12-18 15:30 | RAD_ITS ---
STUDY: X-RAY - LEFT ANKLE REASON FOR EXAM: Female, 24 years old. Injury while hiking, pain TECHNIQUE: 3 view(s) of the ankle. COMPARISON: None. FINDINGS: Normal visualized distal tibia and fibula. Normal medial and lateral malleoli. Normal tibiotalar articulation and ankle mortise. Normal visualized talus and calcaneus. The visualized subtalar, talonavicular, calcaneocuboid and tarsal articulations are normal. The soft tissue structures are unremarkable. RAD/Ankle min 3 Views IMPRESSION: Normal x-ray examination of the ankle. Electronically Signed: Kaz Taylor, at 15:48 EDT , Service support ,
--- NOTE | 2019-12-18 15:42 | ED.DCSUM_ITS ---
History of Present Illness Chief Complaint: Lower Extremity Injury Narrative: Patient presenting for evaluation secondary to a left leg injury. Patient reports that she was hiking over the weekend, and twisted her ankle at least 6 times. Patient states that that caused her to fall multiple times. She denies hitting her head or loss of consciousness. Patient reports that she twisted her ankle again today. She is reporting pain in her left foot left ankle and left knee. She still able to ambulate and bear weight. No numbness or weakness. Past Medical History - Allergies and Home Meds Allergies/Adverse Reactions: Allergies metformin Adverse Reaction (Verified 12/18/19 14:54) Diarrhea allergic to fast release Primary Care Physician: Tre Castle MD [Primary Care Provider] - As Needed Prior records reviewed: Yes Past Medical History: - - Diabetes, polycystic ovarian syndrome Surgical History: cholecystectomy Smoking Status: Current every day smoker Review of Systems All systems negative except as indicated General: Denies: Chills, Fever, Sweats Eyes: Denies: Visual changes - bilaterally, Diplopia ENT: Denies: Rhinorrhea, Sore throat Cardiovascular: Denies: Chest pain, Palpitations Respiratory: Denies: Dyspnea, Cough, Dyspnea on exertion Gastrointestinal: Denies: Abdominal pain, Nausea, Vomiting, Diarrhea, Melena, Hematochezia Genitourinary: Denies: Dysuria, Hematuria, Frequency Musculoskeletal: Reports: Extremity Pain Skin: Denies: Rash, Wounds Neurological: Denies: Headache, Weakness, Numbness Psych: Denies: Depression Endocrine: Denies: Polyuria Hematologic: Denies: Easy bruising Physical Exam Vital Signs/Narrative: Vital Signs Temp Pulse Resp BP Pulse Ox 12/18/19 14:55 98.3 F 105 H 17 118/79 98 - Extremity Exam Left Ankle: - - Examination of the patient's left lower extremity shows swelling over the lateral malleolus, but no tenderness to palpation in that area. There is medial malleolus tenderness to palpation as well as tenderness over the lateral midfoot near the fifth metatarsal. No evidence of deformity, normal distal pulses and sensation. Limited range of motion secondary to pain. Patient also complains of pain over the proximal fibular head. Normal range of motion of the knee. No evidence of joint effusion. General: Well nourished, Well developed, Obese Head: Normocephalic, Atraumatic Eyes: Perrl, EOMI Neck: Nontender, Full ROM Cardiovascular: Regular rate, Regular rhythm, No murmurs Respiratory: No distress, CTA bilaterally, Chest nontender Abdomen: Soft, Nontender, Nondistended, Normal bowel sounds Skin: Normal color, No rash Neurological: Alert, Oriented x3, Cranial nerves II-XII grossly intact, Normal Strength, Normal Sensation Psychological: Normal affect Diagnostic/Tx/Re-eval Clinical Impression(s) from Imaging Studies Foot X-Ray 12/18/19 15:05 IMPRESSION: Normal x-ray examination of the foot. Electronically Signed: Kaz Taylor, at 15:48 EDT , Service support , Knee X-Ray 12/18/19 15:05 IMPRESSION: Normal x-ray examination of the knee. Electronically Signed: Kaz Taylor at 15:50 EDT , Service support , Ankle X-Ray 12/18/19 15:30 IMPRESSION: Normal x-ray examination of the ankle. Electronically Signed: Kaz Taylor, at 15:48 EDT , Service support , - Medical Decision Making Patient presented secondary to left ankle injury. She had pain in the knee ankle and foot so radiographs were obtained. 3 view of the foot ankle and knee by my personal review as well as radiology found to be negative. Patient's pain was addressed with Naprosyn. Patient be treated with an Aircast per her request. She was recommended at home conservative management measures for an a nkle sprain. ED Disposition - Plan for ED Patient: Disposition: Home or Assisted Living Diagnosis: Left ankle sprain Instructions: ED Sprain Ankle W X Ray Referrals: Tre Castel MD [Primary Care Provider] - As Needed
[2019-12-18] MEDS: Naproxen 500 MG Tablet PO (15:55)
== END 2019-12-18 16:38 | disposition home or self-care (01) ==
PROVIDERS: Emergency Provider Emergency Medicine; PCP Internal Medicine
DX: S93.402A Sprain of unspecified ligament of left ankle, initial encounter (principal); E11.9 Type 2 diabetes mellitus without complications; F17.200 Nicotine dependence, unspecified, uncomplicated; X50.1XXA Overexertion from prolonged static or awkward postures, initial encounter; Y93.01 Activity, walking, marching and hiking; Y92.89 Other specified places as the place of occurrence of the external cause; Y99.8 Other external cause status
CPT/HCPCS: 73562; 73610; 73630; 99283

== ENCOUNTER 2019-12-31 02:11 | Emergency (ER) | payer MEDICAID, SELFPAY ==
[2019-12-31] VITALS (7 sets, daily range): BP systolic 90–141; BP diastolic 53–120; PULSE 75–117; RESP 16–22; TEMP 36.8; O2SAT 97–99; BMI 34.4
--- NOTE | 2019-12-31 02:18 | EKG12_ITS ---
Test Reason : OVERDOSE Blood Pressure : / mmHG Vent. Rate : 091 BPM Atrial Rate : 091 BPM P-R Int : 166 ms QRS Dur : 088 ms QT Int : 400 ms P-R-T Axes : 058 085 024 degrees QTc Int : 492 ms Normal sinus rhythm Prolonged QT Abnormal ECG Confirmed by ROSIE HANDY ([id number]), editorial specialist ALPHONSE PHIPPS ([id number]) on 01/04/2020 12:00:35 PM Referred By: ZARINA Confirmed By:ROSIE HANDY
[2019-12-31] MEDS: Activated Charcoal/Sorbitol 50 GM/240 ML BOT PO (02:32)
[2019-12-31] MEDS: 0.9% Normal Saline 1,000 ML 100 ML IV (02:32)
[2019-12-31 02:40] LABS: Absolute Lymphocyte Count 2.85 X10^3/uL (0.83-4.51); Absolute Neutrophil Count 3.7 X10^3/uL (2.0-7.7); Basophil# 0.02 X10^3/uL; Basophil% 0.3 % (0-1); Eosinophil# 0.12 X10^3/uL; Eosinophils% 1.6 % (0-5); Hematocrit 39.2 % (37-47); Hemoglobin 12.7 g/dL (12.0-15.0); Lymphocyte # 2.85 X10^3/ul (4.0); Lymphocyte % 39.1 % (19-41); Mean Corp Hgb Conc 32.4 g/dL (32-36); Mean Corpuscular Hgb 28.1 pg (27.0-32.0); Mean Corpuscular Volume 86.7 fL (81-99); Mean Platelet Vol. 10.4 fl (6.2-12.0); Monocyte# 0.54 X10^3/uL; Monocyte% 7.4 % (0-10); NRBC Flagged by Analyzer 0 % (0-5); Neutrophil # 3.74 X10^3/uL (2.7-7.7); Neutrophil % 51.3 % (47-70); Platelet Count 302 K/mm3 (150-450); RBC Distribution Width CV 12.7 % (11.6-14.6); RBC Distribution Width SD 39.9 fl (35.1-43.9); Red Blood Count 4.52 M/mm3 (4.2-5.4); White Blood Count 7.3 K/mm3 (4.4-11.0)
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
[2019-12-31 02:50] LABS: Internal QC Validated? YES +Cl - CLEAR BKGD; Pregnancy, Serum, hCG Quali. NEGATIVE Negative
[2019-12-31 02:54] LABS: Anion Gap 8 (5-15); BUN 17 mg/dL (7-18); BUN/Creat Ratio 23.8 RATIO (10-20); Calcium,Total 9.2 mg/dL (8.5-10.1); Chloride 105 mmol/L (98-107); Creatinine, Serum 0.72 mg/dL (0.55-1.02); EST Glomerular Filtration Rate 106 mL/min (>60); Est Glom Filt Rate - Afr Amer 129 mL/min (>60); Estimated Creatinine Clearance 108.41 ml/min; Glucose 288 mg/dL (74-106); Potassium 3.4 mmol/L (3.5-5.1); Sodium Level 137 mmol/L (136-145)
[2019-12-31 03:36] LABS: Amphetamine Urine VISTA NEGATIVE (<1000 ng/mL); Barbiturate Urine VISTA NEGATIVE (< 200 ng/mL); Benzodiazepine Urine VISTA NEGATIVE (< 200 ng/mL); Cocaine Urine VISTA NEGATIVE (< 300 ng/mL); Ecstacy Urine VISTA POSITIVE (< 500 ng/mL); Methadone Urine VISTA NEGATIVE (< 300 ng/mL); PCP Urine VISTA NEGATIVE (< 25 ng/mL); THC Urine VISTA NEGATIVE (< 50 ng/mL); Vista UDS pH Range 6
[2019-12-31 04:17] LABS: Acetaminophen (Tylenol) Level < 3.0 ug/mL (10.0-30.0); Salicylate 3.5 mg/dL (2.8-20.0)
--- NOTE | 2019-12-31 07:26 | ED.RN ---
[facility] from [facility] called in to talk with pt
--- NOTE | 2019-12-31 08:14 | ED.RN ---
rody from [facility] called. plan to admit pt to psychiatric facility. pt aware and mother aware
--- NOTE | 2019-12-31 14:31 | ED.RN ---
had lunch prior to dc. signed paperwork for release of information to mother.
== END 2019-12-31 14:20 ==
LOC: ED 03:07
PROVIDERS: Emergency Provider Emergency Medicine; PCP Internal Medicine
DX: T43.212A Poisoning by selective serotonin and norepinephrine reuptake inhibitors, intentional self-harm, initial encounter (principal); R53.83 Other fatigue; Y92.9 Unspecified place or not applicable; F17.200 Nicotine dependence, unspecified, uncomplicated; Z91.5 Personal history of self-harm
CPT/HCPCS: 80048; 80307; 80320; 80329; 84703; 85025; 93005; 99284; J7030; A4216; G0480

== ENCOUNTER 2020-01-20 14:13 | Emergency (ER) | payer MEDICAID, SELFPAY ==
[2019-12-31 02:13] VITALS: BMI 34.4
[2020-01-20 14:15] VITALS: BP 132/65; PULSE 106; RESP 16; TEMP 36.8; O2SAT 99; BMI 34.1
--- NOTE | 2020-01-20 15:07 | CT_ITS ---
STUDY: CT SOFT TISSUE NECK WITH CONTRAST REASON FOR EXAM: Female, 24 years old. SORE THROAT, FEVER, SOB, PRODUCTIVE COUGH, NEG COVID, ELEV WBC, DB RADIATION DOSAGE (If Supplied By Facility): CTDIvol = ( 18.18 ) mGy, DLP = ( 495.08 ) mGycm TECHNIQUE: The patient was scanned in a multi-detector CT scanner. High resolution transaxial imaging was performed following intravenous administration of IV 75mL Isovue-370. Sagittal and coronal images were reconstructed. Individualized dose optimization techniques were used for this CT. COMPARISON: None. FINDINGS: Normal bilateral parotid glands. Normal bilateral inspector purchased parts spaces. Normal bilateral parapharyngeal spaces. Normal bilateral carotid spaces. Normal bilateral sublingual and submandibular glands and spaces. Normal visualized nasopharynx. Normal retropharyngeal space. Normal perivertebral space. Normal visualized bilateral faucial tonsils. The visualized tongue, tongue base and oropharynx are normal. The visualized cervical lymph nodes (levels I-) are within normal size limits, and maintain normal morphology. There is no demonstrated solid or cystic mass lesion. There is no abnormal contrast enhancement. Normal epiglottis, bilateral vallecula and hypopharynx. The pre-epiglottic and paraglottic adipose spaces are normal. Normal visualized bilateral piriform sinuses, aryepiglottic folds, vocal cords, and arytenoid-cricoid articulations. Normal subglottic trachea. Normal bilateral lobes of the thyroid gland. Normal visualized pulmonary apices. Normal visualized paranasal sinuses. Normal visualized cervical spine. CT/Soft Tissue Neck WITH Contrast IMPRESSION: Normal enhanced CT examination of the soft tissues of the neck. Electronically Signed: Lenny Peña, at 16:40 EDT Tel , Service support ,
--- NOTE | 2020-01-20 15:08 | ED.DCSUM_ITS ---
History of Present Illness Chief Complaint: Cold Sx Informant: Patient, Family Onset: Days - 6 days Context: Gradual Onset Current Severity: Moderate Maximum Severity: Moderate Narrative: Patient presents with sore throat, cough, shortness of breath for the past 6 days. She denies having fever at home. She states symptoms started last Wednesday with sore throat and then progressed onto her chest. She was seen at [place] emergency room on Wednesday. She states that she was told she had a viral respiratory infection. Her Covid test on that date was negative. She was not given any medications for home. She states she continues to have cough with green to brown-colored sputum. She does feel that she is wheezing. Patient is refusing to speak but will write answers. Family at bedside is answering questions for her. - Past Medical History (1) GERD (gastroesophageal reflux disease) Status: Chronic (2) Anxiety Status: Chronic (3) Sciatica Status: Chronic (4) Type 2 diabetes mellitus Status: Chronic Past Medical History - Allergies and Home Meds Allergies/Adverse Reactions: Allergies metformin Adverse Reaction (Verified 01/20/20 14:15) Diarrhea allergic to fast release Primary Care Physician: Tre Castle MD [Primary Care Provider] - Prior records reviewed: Yes Surgical History: cholecystectomy Lives: Spouse/ Significant Other Smoking Status: Current every day smoker Review of Systems General: Denies: Chills, Fever Eyes: Denies: Visual changes - bilaterally ENT: Reports: Rhinorrhea, Sore throat. Denies: Bilateral ear pain Cardiovascular: Denies: Chest pain Respiratory: Reports: Dyspnea, Cough, Sputum Gastrointestinal: Denies: Abdominal pain, Nausea, Vomiting, Diarrhea Genitourinary: Denies: Dysuria Musculoskeletal: Denies: Swelling, Extremity Pain Skin: Denies: Rash Neurological: Denies: Headache Hematologic: Denies: Easy bruising, Easy bleeding Allergy: Denies: Uticaria Physical Exam Vital Signs/Narrative: Vital Signs Temp Pulse Resp BP Pulse Ox 01/20/20 14:15 98.3 F 106 H 16 132/65 H 99 Inital Vital Signs reviewed: Yes General: Well nourished, Well developed Head: Normocephalic Eyes: Perrl, EOMI ENT: Moist mucous membranes, TM's clear, - - Posterior pharynx examination unremarkable. Uvula appears midline. Neck: Supple Cardiovascular: Regular rate, Regular rhythm Respiratory: No distress, CTA bilaterally Abdomen: Soft, Nontender, Nondistended Extremities: Nontender Skin: Normal color, No rash Neurological: Alert, Oriented x3 Psychological: Normal affect Diagnostic/Tx/Re-eval Impressions Soft Tissue Neck CT 01/20/20 15:07 IMPRESSION: Normal enhanced CT examination of the soft tissues of the neck. Electronically Signed: Lenny Peña, at 16:40 EDT Tel , Service support , Chest X-Ray 01/20/20 15:28 IMPRESSION: No acute thoracic pathology. Electronically Signed: Lenny Peña, at 16:05 EDT Tel , Service support , 01/20/20 15:07 CT Neck [Soft Tissue Neck WITH Contrast] [CT] Stat 01/20/20 15:28 Chest 1 View (Portable) [RAD] Stat Laboratory Results 01/20/20 01/20/20 01/20/20 15:27 15:27 15:27 WBC 11.2 H RBC 4.81 Hgb 13.3 Hct 41.0 MCV 85.2 MCH 27.7 MCHC 32.4 RDW Std Deviation 38.5 RDW Coeff of Susan 12.5 Plt Count 302 MPV 10.4 Immature Gran % (Auto) 0.400 Neut % (Auto) 72.4 H Lymph % (Auto) 19.8 [place] % (Auto) 5.7 Eos % (Auto) 1.4 Baso % (Auto) 0.3 Absolute Neuts (auto) 8.1 H Absolute Lymphs (auto) 2.22 Nucleated RBC % 0 Sodium 136 Potassium 3.6 Chloride 106 Carbon Dioxide 23.0 Anion Gap 7 BUN 10 Creatinine 0.63 Estim Creat Clear Calc 123.90 Est GFR (MDRD) Af Amer 149 Est GFR (MDRD) Non-Af 123 BUN/Creatinine Ratio 15.9 Glucose 208 H Calcium 9.2 Serum , Qual NEGATIVE - Medical Decision Making Patient was given IV fluids and Toradol. This was followed by dose of p.o. Tylenol. Test results are discussed with patient and significant other at bedside. I agree that I believe her symptoms are all viral in nature. We discussed that antibiotics would not be beneficial. Her chest x-ray and CT of the neck are all unremarkable. We did discuss pros and cons of steroids to help with pain control. She is interested in this and was advised that this would make her blood sugars go up for a few days. She understands and wishes to get the steroids. She will be given a dose of Kenalog. ED Disposition - Plan for ED Patient: Disposition: Home or Assisted Living Diagnosis: Viral pharyngitis, Viral URI Instructions: ED Pharyngitis Viral, ED Upper Resp Infec No Abx Tx Referrals: Tre Castle MD [Primary Care Provider] - 5-7 Days
[2020-01-20] MEDS: 0.9% Normal Saline 1,000 ML 1000 ML IV (15:27)
[2020-01-20] MEDS: Ketorolac 30 MG/ML Syringe IV (15:27)
--- NOTE | 2020-01-20 15:28 | RAD_ITS ---
STUDY: X-RAY CHEST REASON FOR EXAM: Female, 24 years old. Productive cough TECHNIQUE: Frontal view of the chest COMPARISON: 09/14/2019 FINDINGS: The lungs are clear. There are no pleural effusions. There is no pneumothorax. The heart is normal in size. The visualized osseous structures are within normal limits. RAD/Chest 1 View (Portable) IMPRESSION: No acute thoracic pathology. Electronically Signed: Lenny Peña, at 16:05 EDT Tel , Service support ,
[2020-01-20 15:46] LABS: Absolute Lymphocyte Count 2.22 X10^3/uL (0.83-4.51); Absolute Neutrophil Count 8.1 X10^3/uL (2.0-7.7); Basophil# 0.03 X10^3/uL; Basophil% 0.3 % (0-1); Eosinophil# 0.16 X10^3/uL; Eosinophils% 1.4 % (0-5); Hemoglobin 13.3 g/dL (12.0-15.0); Lymphocyte # 2.22 X10^3/ul (4.0); Lymphocyte % 19.8 % (19-41); Mean Corp Hgb Conc 32.4 g/dL (32-36); Mean Corpuscular Hgb 27.7 pg (27.0-32.0); Mean Corpuscular Volume 85.2 fL (81-99); Mean Platelet Vol. 10.4 fl (6.2-12.0); Monocyte# 0.64 X10^3/uL; Monocyte% 5.7 % (0-10); NRBC Flagged by Analyzer 0 % (0-5); Neutrophil # 8.14 X10^3/uL (2.7-7.7); Neutrophil % 72.4 % (47-70); Platelet Count 302 K/mm3 (150-450); RBC Distribution Width CV 12.5 % (11.6-14.6); RBC Distribution Width SD 38.5 fl (35.1-43.9); Red Blood Count 4.81 M/mm3 (4.2-5.4); White Blood Count 11.2 K/mm3 (4.4-11.0)
[2020-01-20 15:52] LABS: Internal QC Validated? YES +Cl - CLEAR BKGD; Pregnancy, Serum, hCG Quali. NEGATIVE Negative
[2020-01-20 15:55] LABS: Anion Gap 7 (5-15); BUN 10 mg/dL (7-18); BUN/Creat Ratio 15.9 RATIO (10-20); Calcium,Total 9.2 mg/dL (8.5-10.1); Chloride 106 mmol/L (98-107); Creatinine, Serum 0.63 mg/dL (0.55-1.02); EST Glomerular Filtration Rate 123 mL/min (>60); Est Glom Filt Rate - Afr Amer 149 mL/min (>60); Glucose 208 mg/dL (74-106); Potassium 3.6 mmol/L (3.5-5.1); Sodium Level 136 mmol/L (136-145)
[2020-01-20] MEDS: Acetaminophen 500 MG Tablet 1000 MG PO (16:44)
[2020-01-20 16:47] VITALS: BP 106/72; PULSE 78; RESP 17; O2SAT 97
[2020-01-20] MEDS: Triamcinolone Acetonide 40 MG/ML Vial IM (17:22)
[2020-01-20 17:42] VITALS: BP 138/81; PULSE 89; RESP 15; O2SAT 98
== END 2020-01-20 17:43 | disposition home or self-care (01) ==
PROVIDERS: Emergency Provider Emergency Medicine; PCP Internal Medicine
DX: J02.8 Acute pharyngitis due to other specified organisms (principal); E11.9 Type 2 diabetes mellitus without complications; K21.9 Gastro-esophageal reflux disease without esophagitis; F41.9 Anxiety disorder, unspecified; F17.200 Nicotine dependence, unspecified, uncomplicated; Z79.84 Long term (current) use of oral hypoglycemic drugs
CPT/HCPCS: 70491; 71045; 80048; 84703; 85025; 96361; 96372; 96374; 99283; J7030; Q9967; A4216

== ENCOUNTER 2020-02-17 17:44 | Emergency (ER) | payer MEDICAID, SELFPAY ==
[2020-02-17 17:45] VITALS: BP 124/81; PULSE 110; RESP 18; TEMP 36.4; O2SAT 98; BMI 34.5
--- NOTE | 2020-02-17 19:08 | ED.VIS.GI ---
History of Present Illness Chief Complaint: Abd Pain Informant: Patient - Abdominal Pain/Flank Pain Onset: Weeks - 3 Context: Gradual Onset Timing: Continuous Quality: Aching Location: RLQ, LLQ Current Severity: Moderate Maximum Severity: Moderate Worsened by: Nothing Relieved by: Nothing - Nausea/Vomiting/Emesis GI Symptom: Negative for: Nausea, Vomiting - Diarrhea/Melena/Hematochezia GI Symptom: Negative for: Diarrhea, Melena, Hematochezia Associated Symptoms: Negative for: Dysuria, Frequency, Hematuria, Urgency Narrative: Patient has been having this discomfort for about 3 weeks and it is the same pain, worse. Started more suprapubic. It is worse in the left pelvis than the right. She was seen at an outside emergency department and had a CT scan that showed some ovarian cyst. She followed up with her TRUST MANAGER ASSISTANT, they agree that this was likely cyst related pain. Patient states she has a history of PCOS. She has had surgery for ovarian cysts in the past. She states in the last 2 days, she has started having a heavy menstrual cycle, and in that period of time, the pain that she had prior to the cycle starting has worsened to the point where the tramadol she was prescribed is not helping. She states she came to the ER tonight because she cannot take the pain anymore. He has had no systemic symptoms, syncopal episodes, fevers or chills. Patient presents during the national coronavirus emergency declaration/pandemic. She denies any known contact with anyone infected with COVID-19. She denies traveling out of the immediate area recently. - Past Medical History (1) PCOS (polycystic ovarian syndrome) Status: Chronic (2) Anxiety Status: Chronic (3) GERD (gastroesophageal reflux disease) Status: Chronic (4) Sciatica Status: Chronic (5) Type 2 diabetes mellitus Status: Chronic Past Medical History - Allergies and Home Meds Allergies/Adverse Reactions: Allergies metformin Adverse Reaction (Verified 02/17/20 17:48) Diarrhea allergic to fast release Primary Care Physician: Tre Castle MD [Primary Care Provider] - Surgical History: cholecystectomy, - - ov cyst excision Smoking Status: Current every day smoker Drugs: None Review of Systems General: Denies: Chills, Fever, Sweats Eyes: Denies: Visual changes - bilaterally, Diplopia ENT: Denies: Rhinorrhea, Sore throat Cardiovascular: Denies: Chest pain, Palpitations Respiratory: Denies: Dyspnea, Cough, Dyspnea on exertion Gastrointestinal: Reports: Abdominal pain. Denies: Nausea, Vomiting, Diarrhea, Melena, Hematochezia Genitourinary: Denies: Dysuria, Hematuria, Frequency Musculoskeletal: Denies: Back pain, Swelling, Extremity Pain Skin: Denies: Rash, Wounds Neurological: Denies: Headache, Weakness, Numbness Physical Exam Vital Signs/Narrative: Vital Signs Temp Pulse Resp BP Pulse Ox 02/17/20 17:45 97.5 F L 110 H 18 124/81 H 98 Inital Vital Signs reviewed: Yes General: Well nourished, Well developed, No Acute Distress Head: Normocephalic, Atraumatic Eyes: Perrl, EOMI ENT: Moist mucous membranes, No rhinorrhea Neck: Supple, Nontender Cardiovascular: Regular rate, Regular rhythm, No murmurs Respiratory: No distress, CTA bilaterally, Chest nontender Abdomen: Soft, Nondistended, Normal bowel sounds, No masses, Tender - across lower abd only. Negative for: Guarding, Rebound tenderness Back: Nontender, Normal Inspection. Negative for: CVA tenderness Extremities: Nontender, No edema Skin: Normal color, No rash, No Trauma Neurological: Alert, Oriented x3, Cranial nerves II-XII grossly intact, Normal Strength, Normal Sensation, Normal Gait Psychological: Normal affect, Normal Mood Diagnostic/Tx/Re-eval Laboratory Results 02/17/20 02/17/20 02/17/20 19:10 19:10 20:15 WBC 9.2 RBC 4.76 Hgb 13.4 Hct 40.5 MCV 85.1 MCH 28.2 MCHC 33.1 RDW Std Deviation 38.8 RDW Coeff of Susan 12.6 Plt Count 302 MPV 10.5 Immature Gran % (Auto) 0.300 Neut % (Auto) 57.4 Lymph % (Auto) 34.5 [place] % (Auto) 6.4 Eos % (Auto) 1.1 Baso % (Auto) 0.3 Absolute Neuts (auto) 5.3 Absolute Lymphs (auto) 3.17 Nucleated RBC % 0 Sodium 133 L Potassium 4.5 Chloride 102 Carbon Dioxide 24.0 Anion Gap 7 BUN 14 Creatinine 0.78 Estim Creat Clear Calc 100.07 Est GFR (MDRD) Af Amer 116 Est GFR (MDRD) Non-Af 96 BUN/Creatinine Ratio 18.0 Glucose 280 H Calcium 9.1 Urine Color Urine Clarity Urine pH Ur Specific [place] Urine Protein Urine Glucose (UA) Urine Ketones Urine Occult Blood Urine Nitrite Urine Bilirubin Urine Urobilinogen Ur Leukocyte Esterase Urine RBC Urine WBC Ur Squamous Epith Cells Urine Bacteria Urine Mucus Urine Test Negative 02/17/20 20:15 WBC RBC Hgb Hct MCV MCH MCHC RDW Std Deviation RDW Coeff of Susan Plt Count MPV Immature Gran % (Auto) Neut % (Auto) Lymph % (Auto) [place] % (Auto) Eos % (Auto) Baso % (Auto) Absolute Neuts (auto) Absolute Lymphs (auto) Nucleated RBC % Sodium Potassium Chloride Carbon Dioxide Anion Gap BUN Creatinine Estim Creat Clear Calc Est GFR (MDRD) Af Amer Est GFR (MDRD) Non-Af BUN/Creatinine Ratio Glucose Calcium Urine Color Yellow Urine Clarity Clear Urine pH 6.0 Ur Specific [place] 1.015 Urine Protein Negative Urine Glucose (UA) 1000 H Urine Ketones Negative Urine Occult Blood 150 H Urine Nitrite Negative Urine Bilirubin Negative Urine Urobilinogen Normal Ur Leukocyte Esterase Negative Urine RBC 0-5 SEEN Urine WBC 0 SEEN Ur Squamous Epith Cells 0-5 SEEN Urine Bacteria 0 SEEN Urine Mucus 0 SEEN Urine Test - Medical Decision Making Work-up is unremarkable with negative , patient is feeling much better after analgesics given in the ER. Ultrasound is not available at the hour of the evening that the patient presents this weekend. I do not think it needs to be done emergently, I am not suspicious for torsion at this time, my suspicion is that she is having polycystic ovarian-related pain in conjunction with uterine pain due to her menorrhagia at this time. She states she went through 4 pads in an hour, however throughout her 4-hour plus stay in the emergency department, she did not have any significant bleeding so I do not think she needs further emergent work-up at this time and can safely follow-up with her TRUST MANAGER ASSISTANT. ED Disposition - Plan for ED Patient: Disposition: Home or Assisted Living Diagnosis: Pelvic pain, PCOS (polycystic ovarian syndrome), Menorrhagia Instructions: ED Pelvic Pain [facility] Prescriptions: Hydrocodone Bitart/Apap 5-325 [[place] 5MG-325MG] 1 tab PO Q4H PRN PRN 2 Days #10 tab PRN Reason: Pain Prescription Printed Referrals: Tre Castle MD [Primary Care Provider] - 3-5 Days if not improving (or your family protection specialist)
[2020-02-17] MEDS: HYDROcodone Bitartrate/Apap 5/325 Tablet PO (19:16)
[2020-02-17 19:23] LABS: Absolute Lymphocyte Count 3.17 X10^3/uL (0.83-4.51); Absolute Neutrophil Count 5.3 X10^3/uL (2.0-7.7); Basophil# 0.03 X10^3/uL; Basophil% 0.3 % (0-1); Eosinophils% 1.1 % (0-5); Hematocrit 40.5 % (37-47); Hemoglobin 13.4 g/dL (12.0-15.0); Lymphocyte # 3.17 X10^3/ul (4.0); Lymphocyte % 34.5 % (19-41); Mean Corp Hgb Conc 33.1 g/dL (32-36); Mean Corpuscular Hgb 28.2 pg (27.0-32.0); Mean Corpuscular Volume 85.1 fL (81-99); Mean Platelet Vol. 10.5 fl (6.2-12.0); Monocyte# 0.59 X10^3/uL; Monocyte% 6.4 % (0-10); NRBC Flagged by Analyzer 0 % (0-5); Neutrophil # 5.26 X10^3/uL (2.7-7.7); Neutrophil % 57.4 % (47-70); Platelet Count 302 K/mm3 (150-450); RBC Distribution Width CV 12.6 % (11.6-14.6); RBC Distribution Width SD 38.8 fl (35.1-43.9); Red Blood Count 4.76 M/mm3 (4.2-5.4); White Blood Count 9.2 K/mm3 (4.4-11.0)
[2020-02-17 19:54] LABS: Anion Gap 7 (5-15); BUN 14 mg/dL (7-18); Calcium,Total 9.1 mg/dL (8.5-10.1); Chloride 102 mmol/L (98-107); Creatinine, Serum 0.78 mg/dL (0.55-1.02); EST Glomerular Filtration Rate 96 mL/min (>60); Est Glom Filt Rate - Afr Amer 116 mL/min (>60); Estimated Creatinine Clearance 100.07 ml/min; Glucose 280 mg/dL (74-106); Potassium 4.5 mmol/L (3.5-5.1); Sodium Level 133 mmol/L (136-145)
[2020-02-17 20:26] LABS: Bacteria 0 SEEN /hpf (None Seen); Mucous, Urine 0 SEEN /hpf (<or=2+); White Blood Cells 0 SEEN /hpf (0-5)
[2020-02-17 20:27] LABS: Color, Urine Yellow (Yellow); Glucose, Dipstick 1000 mg/dl (Normal); Ketone-Dipstick Negative (Negative); Leukocyte Esterase-Dipstick Negative /ul (Negative); Nitrite-Dipstick Negative (Negative); Occult Blood-Urine 150 /ul (Negative); Protein-Dipstick Negative (Negative); Specific Gravity, Urine 1.015 (1.002-1.030); Urine Bilirubin Dipstick Negative (Negative); Urine Clarity Clear (Clear); Urine Urobilinogen Normal (Normal)
[2020-02-17 20:33] LABS: Squamous Epithelial Cells - UA 0-5 SEEN /hpf (5-10)
[2020-02-17 20:35] LABS: Red Blood Cells-Urine 0-5 SEEN /hpf (0-5)
[2020-02-17 20:38] LABS: Internal QC Validated? YES +Cl - CLEAR BKGD
[2020-02-17 20:41] LABS: Pregnancy, Urine Negative Negative
[2020-02-17 22:13] VITALS: RESP 16
== END 2020-02-17 22:14 | disposition home or self-care (01) ==
PROVIDERS: Emergency Provider Emergency Medicine; PCP Internal Medicine
DX: R10.2 Pelvic and perineal pain (principal); E28.2 Polycystic ovarian syndrome; N92.0 Excessive and frequent menstruation with regular cycle; F17.200 Nicotine dependence, unspecified, uncomplicated; K21.9 Gastro-esophageal reflux disease without esophagitis; E11.9 Type 2 diabetes mellitus without complications; Z79.84 Long term (current) use of oral hypoglycemic drugs
CPT/HCPCS: 36415; 80048; 81001; 81025; 85025; 99283

== ENCOUNTER 2020-03-27 15:23 | Emergency (ER) | payer MEDICAID, SELFPAY ==
[2020-03-27 15:24] VITALS: BP 113/77; PULSE 99; RESP 18; TEMP 36.7; O2SAT 99; BMI 35.2
--- NOTE | 2020-03-27 16:05 | CM.ED ---
SOCIAL WORK Reason for Consult: Active ED Care Plan Patient with active ED Care Plan. Reviewed with nursing and Dr. Limon. This worker to remain available for needs. Rocky Taveras, JEWELRY CASTING MODEL MAKER APPRENTICE, [employer]
--- NOTE | 2020-03-27 16:18 | US_ITS ---
STUDY: ULTRASOUND OF THE FEMALE PELVIS - COMPLETE REASON FOR EXAM: Female, 24 years old. STABBING PELVIC PAIN LMP: 03/26/2020 TECHNIQUE: Transvaginal TECHNICAL QUALITY: Adequate. COMPARISON: CT scan 07/11/2019. FINDINGS: The uterus is anteverted and is in a midline position. The uterus measures 6.4 x 4.8 x 3.1 cm. Normal uterine cervix. The endometrium measures 4 mm in thickness, and is hyperechoic. There is no demonstrated endometrial mass. There is no demonstrated myometrial mass. I.U.D. - The patient does not have an I.U.D. The right ovary is visualized. The right ovary measures 3.7 x 2.7 x 1.9 cm. There is no right ovarian cyst or ovarian mass. There is no visualized right adnexal mass or complex lesion. There is normal arterial and normal venous vascularity. The left ovary is visualized. The left ovary measures 5.9 x 5.3 x 4.9 cm. There is a 4.8 cm mass most consistent with hemorrhagic cysts. There is normal arterial and normal venous vascularity. There is no fluid in the cul-de-sac. US/Transvaginal Non- IMPRESSION: Findings characteristic of 4.8 cm left hemorrhagic cyst. Recommend follow up in 1 or 2 menstrual periods. Electronically Signed: Ludwig Ashley MD at 17:49 EDT , Service support ,
[2020-03-27 16:29] LABS: Bacteria 0 SEEN /hpf (None Seen); Mucous, Urine 0 SEEN /hpf (<or=2+); Red Blood Cells-Urine 0 SEEN /hpf (0-5); White Blood Cells 0 SEEN /hpf (0-5)
[2020-03-27 16:35] LABS: Color, Urine Yellow (Yellow); Glucose, Dipstick 100 mg/dl (Normal); Ketone-Dipstick 5 mg/dl (Negative); Leukocyte Esterase-Dipstick Negative /ul (Negative); Nitrite-Dipstick Negative (Negative); Occult Blood-Urine 50 /ul (Negative); Protein-Dipstick 15 mg/dl (Negative); Urine Bilirubin Dipstick Negative (Negative); Urine Clarity Clear (Clear); Urine Urobilinogen Normal (Normal)
[2020-03-27 16:38] LABS: Absolute Lymphocyte Count 2.43 X10^3/uL (0.83-4.51); Absolute Neutrophil Count 3.6 X10^3/uL (2.0-7.7); Basophil# 0.03 X10^3/uL; Basophil% 0.5 % (0-1); Eosinophils% 1.5 % (0-5); Hematocrit 39.1 % (37-47); Hemoglobin 12.8 g/dL (12.0-15.0); Internal QC Validated? YES +Cl - CLEAR BKGD; Lymphocyte # 2.43 X10^3/ul (4.0); Lymphocyte % 36.7 % (19-41); Mean Corp Hgb Conc 32.7 g/dL (32-36); Mean Corpuscular Hgb 28.2 pg (27.0-32.0); Mean Corpuscular Volume 86.1 fL (81-99); Mean Platelet Vol. 11.4 fl (6.2-12.0); NRBC Flagged by Analyzer 0 % (0-5); Neutrophil # 3.63 X10^3/uL (2.7-7.7); Neutrophil % 54.8 % (47-70); Platelet Count 295 K/mm3 (150-450); Pregnancy, Urine Negative Negative; RBC Distribution Width CV 13.2 % (11.6-14.6); RBC Distribution Width SD 41.1 fl (35.1-43.9); Red Blood Count 4.54 M/mm3 (4.2-5.4); White Blood Count 6.6 K/mm3 (4.4-11.0)
[2020-03-27] MEDS: 0.9% Normal Saline 1,000 ML 1000 ML IV (16:43)
[2020-03-27] MEDS: Ketorolac 15 MG/ML Vial IV (16:43)
[2020-03-27] MEDS: Ondansetron 4 MG/2 ML Vial IV (16:43)
--- NOTE | 2020-03-27 16:45 | ED.DCSUM_ITS ---
History of Present Illness Chief Complaint: Abd Pain Informant: Patient Pain: Pelvic Pain, Vaginal Pain Onset: Days Context: Gradual Onset Timing: Intermittent Quality: Sharp Associated Symptoms: Dysuria Narrative: Patient is a 24-year-old female well-known to our ER presenting with pelvic pain. Has a history of PCOS. She is for 2 days she said stabbing pain in her pelvic region as well as her vagina. Intermittent. She took Naprosyn last night which seemed to help with her pain. She is currently on her menstrual cycle. She denies any abnormal discharge. She notes she also has pain when she defecates. Is also plan of dysuria. She had episode of vomiting at 3:30 AM because the pain was so bad. She states she been nauseous for the past 1-1/2 days. She denies any blood in her vomit. She states she had normal bowel movements. No other complaints at this time. Past Medical History - Allergies and Home Meds Allergies/Adverse Reactions: Allergies metformin Adverse Reaction (Verified 03/27/20 16:23) Diarrhea allergic to fast release Past Medical History: - - PCOS, anxiety Surgical History: cholecystectomy, - - ov cyst excision Lives: Spouse/ Significant Other Smoking Status: Current every day smoker Review of Systems General: Denies: Chills, Fever, Sweats Eyes: Denies: Visual changes - bilaterally, Diplopia ENT: Denies: Rhinorrhea, Sore throat Cardiovascular: Denies: Chest pain, Palpitations Respiratory: Denies: Dyspnea, Cough, Dyspnea on exertion Gastrointestinal: Reports: Abdominal pain, Nausea, Vomiting. Denies: Diarrhea, Melena, Hematochezia Genitourinary: Reports: - - vaginal bleeding . Denies: Dysuria, Hematuria, Frequency Musculoskeletal: Denies: Back pain, Extremity Pain Skin: Denies: Rash, Wounds Neurological: Denies: Headache, Weakness, Numbness Physical Exam Vital Signs/Narrative: Vital Signs Temp Pulse Resp BP Pulse Ox 03/27/20 15:24 98.1 F 99 18 113/77 99 Inital Vital Signs reviewed: Yes General: Well nourished, Well developed Head: Normocephalic, Atraumatic Eyes: Perrl, EOMI ENT: Moist mucous membranes, No rhinorrhea Neck: Supple, Nontender Cardiovascular: Regular rate, Regular rhythm, No murmurs Respiratory: No distress, CTA bilaterally, Chest nontender Abdomen: Soft, Nontender, Nondistended, Normal bowel sounds : Speculum exam: Normal external genitalia, No vaginal lesions, No vaginal discharge, Mild active bleeding Bimanual exam: No cervical motion tenderness, Os closed, Normal size uterus, Nontender adnexa, bilat, Tender Uterus. Negative for: Uterine Mass Back: Nontender, Normal Inspection. Negative for: CVA tenderness Extremities: Nontender, No edema Skin: Normal color, No rash Neurological: Alert, Oriented x3, Cranial nerves II-XII grossly intact, Normal Strength, Normal Sensation Psychological: Normal affect Diagnostic/Tx/Re-eval Clinical Impression(s) from Imaging Studies Transvaginal US 03/27/20 16:18 IMPRESSION: Findings characteristic of 4.8 cm left hemorrhagic cyst. Recommend follow up in 1 or 2 menstrual periods. Electronically Signed: Ludwig Ashley MD at 17:49 EDT , Service support , Laboratory Data 03/27/20 03/27/20 03/27/20 15:50 15:50 15:50 WBC 6.6 RBC 4.54 Hgb 12.8 Hct 39.1 MCV 86.1 MCH 28.2 MCHC 32.7 RDW Std Deviation 41.1 RDW Coeff of Susan 13.2 Plt Count 295 MPV 11.4 Immature Gran % (Auto) 0.500 Neut % (Auto) 54.8 Lymph % (Auto) 36.7 [place] % (Auto) 6.0 Eos % (Auto) 1.5 Baso % (Auto) 0.5 Absolute Neuts (auto) 3.6 Absolute Lymphs (auto) 2.43 Nucleated RBC % 0 Sodium 136 Potassium 3.8 Chloride 104 Carbon Dioxide 27.0 Anion Gap 5 BUN 10 Creatinine 0.70 Estim Creat Clear Calc 111.51 Est GFR (MDRD) Af Amer 133 Est GFR (MDRD) Non-Af 110 BUN/Creatinine Ratio 14.4 Glucose 179 H Calcium 9.3 Total Bilirubin 0.60 AST 40 H ALT 54 Alkaline Phosphatase 54 Total Protein 7.9 Albumin 3.8 Globulin 4.1 Albumin/Globulin Ratio 0.9 Lipase 114 Urine Color Urine Clarity Urine pH Ur Specific [place] Urine Protein Urine Glucose (UA) Urine Ketones Urine Occult Blood Urine Nitrite Urine Bilirubin Urine Urobilinogen Ur Leukocyte Esterase Urine RBC Urine WBC Ur Squamous Epith Cells Urine Bacteria Urine Mucus Urine Test Negative 03/27/20 15:50 WBC RBC Hgb Hct MCV MCH MCHC RDW Std Deviation RDW Coeff of Susan Plt Count MPV Immature Gran % (Auto) Neut % (Auto) Lymph % (Auto) [place] % (Auto) Eos % (Auto) Baso % (Auto) Absolute Neuts (auto) Absolute Lymphs (auto) Nucleated RBC % Sodium Potassium Chloride Carbon Dioxide Anion Gap BUN Creatinine Estim Creat Clear Calc Est GFR (MDRD) Af Amer Est GFR (MDRD) Non-Af BUN/Creatinine Ratio Glucose Calcium Total Bilirubin AST ALT Alkaline Phosphatase Total Protein Albumin Globulin Albumin/Globulin Ratio Lipase Urine Color Yellow Urine Clarity Clear Urine pH 6.0 Ur Specific [place] 1.020 Urine Protein 15 H Urine Glucose (UA) 100 H Urine Ketones 5 H Urine Occult Blood 50 H Urine Nitrite Negative Urine Bilirubin Negative Urine Urobilinogen Normal Ur Leukocyte Esterase Negative Urine RBC 0 SEEN Urine WBC 0 SEEN Ur Squamous Epith Cells 0-5 SEEN Urine Bacteria 0 SEEN Urine Mucus 0 SEEN Urine Test - Medical Decision/Diagnostic Studies Patient is evaluated for recurrent pelvic pain. She has a known ovarian cyst and follows with her TRUCK SERVICE TECHNICIAN in vagina. Patient took Naprosyn yesterday was not anything for pain today. She is given Toradol and Zofran in the ER for her symptoms. She does have mild improvement but then has more pain after the transvaginal ultrasound. She is then given Tylenol. Patient is a care plan so she is not given any opioid pain medication. Lab work is normal. Urinalysis is consistent with some blood contamination but not infection. Ultrasound shows a 4.8 cm hemorrhagic cyst on the left. This is likely the cause of her pain. I did discuss the case with her OB on-call, , who is agreeable with outpatient follow-up. Patient be started on Motrin 600 mg for pain control. She is given a prescription for Zofran as well. Patient is counseled on signs and symptoms requiring return to the emergency room. Patient verbalizes agreement and understand this plan. Patient discharged home in stable and improved condition. ED Disposition - Plan for ED Patient: Disposition: Home or Assisted Living Diagnosis: Left ovarian cyst, Pelvic pain Instructions: ED Cyst Ovarian Prescriptions: Ibuprofen [Motrin] 600 mg PO Q6H PRN PRN #20 tab PRN Reason: Pain Score 1-04/13 Transmission [id number] Ondansetron [Zofran Odt] 4 mg PO Q8H PRN PRN #10 tab PRN Reason: Nausea Transmission Status[id number] Additional Instructions: Please follow-up with your TRUCK SERVICE TECHNICIAN. Call the office tomorrow to schedule follow- up appointment. Alternate Tylenol and ibuprofen for pain.
[2020-03-27 16:46] LABS: Squamous Epithelial Cells - UA 0-5 SEEN /hpf (5-10)
[2020-03-27 16:47] LABS: ALB/GLOB Ratio 0.9 RATIO (0.9-2.4); AST(SGOT) 40 U/L (15-37); Alanine Aminotransfer ALT/SGPT 54 U/L (13-56); Albumin, Serum 3.8 g/dL (3.2-5.0); Alkaline Phosphatase 54 U/L (45-117); Anion Gap 5 (5-15); BUN 10 mg/dL (7-18); BUN/Creat Ratio 14.4 RATIO (10-20); Calcium,Total 9.3 mg/dL (8.5-10.1); Chloride 104 mmol/L (98-107); EST Glomerular Filtration Rate 110 mL/min (>60); Est Glom Filt Rate - Afr Amer 133 mL/min (>60); Estimated Creatinine Clearance 111.51 ml/min; Globulin 4.1 g/dL (2.2-4.2); Glucose 179 mg/dL (74-106); Lipase 114 U/L (73-393); Potassium 3.8 mmol/L (3.5-5.1); Protein, Total 7.9 g/dL (6.4-8.2); Sodium Level 136 mmol/L (136-145)
--- NOTE | 2020-03-27 17:34 | ED.RN ---
assisted dr yates with pelvic exam
[2020-03-27 18:08] VITALS: BP 104/76; PULSE 80; RESP 16; O2SAT 98
[2020-03-27 18:32] VITALS: BP 100/64; PULSE 80; RESP 16; O2SAT 100
== END 2020-03-27 18:35 | disposition home or self-care (01) ==
PROVIDERS: Emergency Provider Emergency Medicine; PCP Internal Medicine
DX: N83.202 Unspecified ovarian cyst, left side (principal); F41.9 Anxiety disorder, unspecified; F17.200 Nicotine dependence, unspecified, uncomplicated; Z90.49 Acquired absence of other specified parts of digestive tract
CPT/HCPCS: 76830; 80053; 81001; 81025; 83690; 85025; 93976; 96361; 96374; 96375; 99284; J7030; A4216; J2405

== ENCOUNTER 2020-04-04 10:40 | Day surgery (SDC) | payer MEDICAID, SELFPAY ==
--- NOTE | 2020-04-03 10:34 | HP.PCM_ITS ---
History and Physical Date of Admission: 04/04/20 Pre-Op History and Physical ? HPI: The patient is a 24 year old female presenting for pre-operative visit. She is scheduled for?laparoscopic left ovarian cystectomy, for?acute on chronic pelvic pain, enlarging left ovarian cyst on?04/04/2020. ??Procedure discussed along with risks, benefits and complications. ?Other alternatives discussed for management. Consent form signed??Yes.? PAST MEDICAL HISTORY PAST MEDICAL HISTORY Diagnosis Date ? Abnormal Pap smear of cervix 06/2017 ? ASCUS pap + HPV ? Anxiety and depression 06/04/2019 ? 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 Asthma ? ? Cervical radiculopathy 02/15/2018 ? depression ? ? Diabetes mellitus type 2, uncontrolled, without complications ? ? Sees Endo: DANIEL Orourke ? ? Displacement of lumbar intervertebral disc without myelopathy 09/12/2013 ? GERD (gastroesophageal reflux disease) ? ? IBS (irritable bowel syndrome) ? ? Mastoiditis 12/28/2018 ? Obesity (BMI 30-39.9) 10/05/2017 ? Ovarian cyst ? ? Uncontrolled type 2 diabetes mellitus with hyperglycemia (HCC) ? ? Sees Endo: DANIEL Orourke? PAST SURGICAL HISTORY PAST SURGICAL HISTORY Procedure Laterality Date ? [facility] ? 02/08/2019 ? Colonoscopy ? [facility] W/BX ? 01/02/14 ? minimal gastritis ? EGD W/O OR W/BRUSH/WASH ? 09/05/2014 ? EGD ? EGD W/O OR W/BRUSH/WASH ? 02/08/2019 ? EGD ? LAP CHOLECYSTECT/CHOLANGIOGRAPHY ? 01/16/14 ? normal IOC ? PAST SURGICAL HISTORY OF ? 2011 ? Ovarian cysts removed ? SURG RX INCOMPLETE ABORTN ? 10/26/2017, 01/12/19 ? Suction D&C, bleeding and pain after cytotec, [id number] D&C for missed ? ? CURRENT MEDICATIONS Current Outpatient Medications Medication Sig Dispense Refill ? traZODone (DESYREL) 50 mg tablet Take 1 tablet by mouth daily at bedtime. ? ? ? ibuprofen (MOTRIN) 800 mg tablet Take 1 tablet by mouth every 8 hours as needed. FOR PAIN. 30 tablet 1 ? metFORMIN ER (GLUCOPHAGE XR) 500 mg 24 hr tablet Take 2 tablets by mouth twice daily before meals. 120 tablet 0 ? pioglitazone (ACTOS) 15 mg tablet Take 1 tablet by mouth once daily. 30 tablet 5 ? blood sugar diagnostic (BLOOD GLUCOSE TEST) test strip Test blood sugar(s) 2 times daily. ?Dx: Type 2 DM - Uncontrolled E11.65 ?Insulin: No 100 Strip 5 ? Omeprazole 40 mg capsule Take 1 capsule by mouth once daily. 30 capsule 5 ? No current facility-administered medications for this visit.? ? ALLERGIES:?Metformin ? PERSONAL HISTORY:? SOCIAL HISTORY Social History ? Tobacco Use ? Smoking status: Current Some Day Smoker ? ? Packs/day: 0.50 ? ? Years: 2.00 ? ? Pack years: 1.00 ? ? Types: Cigarettes ? Smokeless tobacco: Never Used Substance Use Topics ? Alcohol use: Yes ? ? Frequency: Monthly or less ? ? Drinks per session: 3 or 4 ? ? Binge frequency: Less than monthly ? ? Comment: once or twice a month ? Drug use: Not on file ? ? Comment: once or twice a month ? FAMILY HISTORY:? FAMILY HISTORY FAMILY HISTORY Problem Relation Age of Onset ? Cancer Maternal Grandmother ?started off with lung cancer now ? Breast Cancer Maternal Grandmother ? ? Heart Maternal Grandfather ?now ? Diabetes Maternal Grandfather ? ? Heart Paternal Grandmother ? ? Hypertension Paternal Grandmother ? ? Diabetes Paternal Grandmother ? ? other (strokes) Paternal Grandmother ? ? Hypertension Paternal Grandfather ? ? Heart Paternal Grandfather ? ? Diabetes Paternal Grandfather ? ? other (borderline diabetes) Paternal Grandfather ? ? other (? [place]) Paternal Grandfather ? ? Diabetes Mother ? ? Heart Mother ?extra valve ? Asthma Father ? ? Asthma Brother ? ? Breast Cancer Maternal Aunt ? ? Colon Cancer No Family History ? ? REVIEW OF SYMPTOMS: GENERAL: denies fevers or chills ENDOCRINOLOGY: has not been on steroids Cardiology : denies palpitations or chest pain Respiratory: denies SOB or cough Hematology: denies history of prolonged bleeding or easy bruising or VTE Allergy: Denies history of personal or family history of allergy to anesthesia ? ? PHYSICAL EXAMINATION: ? VITALS:?Blood pressure 126/74, weight 209 lb (94.8 kg), last menstrual period 03/26/2020. ? GENERAL:??The patient is well nourished, well hydrated in no acute distress. ?, The patient is oriented to time, place, and person. NECK:?Supple. No lynphadenopathy, normal thyroid, no thyromegaly. LUNGS:?Clear to auscultation bilaterally. no wheezes, rhonchi or rales HEART:?Regular rate and rhythm, Normal heart sounds and No murmurs or gallops Per Dr. Gandhi exam today ? ? Pelvic US reviewed. ? ? ? IMPRESSION:?acute on chronic pelvic pain, complex left ovarian cyst ? PLAN:???The risks/benefits/alternatives and personal involved for the planned?laparoscopic left ovarian cystectomy?were reviewed with the patient. Her questions were answered to her satisfaction and she desires to proceed. ?Consent was signed. ?I reviewed with her postop instructions and expectations. ? ? I reviewed with the patient that this surgery is somewhat elective, and though she's having pain, we could continue to manage the ovarian cyst conservatively. ?Looking through her history she's had recurrent bouts of pain and ovarian cyst. ?Discussed with her there is a very minimal chance of malignancy. ?No evidence of torsion today. ?Discussed with her that if significant bleeding occurs, it might result in a [id number] oophorectomy. ?I also reviewed with her that if her hemoglobin A1c as above 9, I would not proceed with an elective surgery. 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 ?Patient is not using contraception. ?She's not on folic acid. ?I encouraged her to take folic acid and discussed with her the reasoning for this in anticipation of possible . ?Also we reviewed increased risk to mom and fetus and increased abnormalities with uncontrolled diabetes. ?Patient states understanding. ?Labs are pending. ?Covid test is ordered.? ? I have reviewed and updated past medical and surgical history, medications and allergies? This H&P was completed in my office on 04/02/2020 Procedure Criteria Procedure Type: Elective COVID Risk Discussion: The surgeon/proceduralist and patient have discussed in detail the risk of exposure to and/or potential harm posed by the COVID-19 virus with having a surgery/procedure at this time versus the risk of delaying the surgery/procedure. It is not possible to know either the risk of delaying the surgery or procedure or chance of getting an infection with perfect accuracy, but a joint decision was made between the patient and the surgeon/proceduralist to proceed at this time with the scheduled surgery/procedure as indicated on the consent form.
[2020-04-04] VITALS (11 sets, daily range): BP systolic 93–120; BP diastolic 62–88; PULSE 78–114; RESP 14–16; TEMP 36.3–36.9; O2SAT 94–97; BMI 34.6
--- NOTE | 2020-04-04 | OV_PTH ---
PATIENT: ANDREA WINSLOW LOC: [facility] [place][id number] AGE/SX: ROOM: RE04/04/[address]: Dr. Kelle Longoria MD : 1995 BED: DIS: 04/04/2020 SPEC #: [id number] RECD: 04/04/20 14:26 STATUS: CYN TYE #: [id number] TRICIA: 04/04/20 00:[address]: Kelle Longoria DEPT: SURGICAL PATHOLOGY RECD BY: Nahid Beltran ENTERED: 04/05/20 08:54 SP TYPE: OVARY OTHR DR: Dr. Tre Castle MD Tissues: OVARIAN CYST Procedures: Surgery Specimen Level IV HEADER OPERATION: Laparoscopic ovarian cystectomy PRE-OP DIAGNOSIS: Acute on chronic pelvic pain, enlarging left ovarian cyst TISSUE SUBMITTED: Left ovarian cyst MICROSCOPIC DIAGNOSIS Left ovary, oophorectomy: Fragments of hemorrhagic corpus luteal cyst and follicular cyst. AM:maris 04/08/20 MICROSCOPIC DESCRIPTION Slides are reviewed. GROSS DESCRIPTION Received in fixative is one container labeled with the patient's name and designated left ovarian cyst. The specimen consists of multiple irregular fragments of dyer soft tissue mixed with fragments of brownish hair that in aggregate measure 4.5 x 4 x 1 cm. The specimen is totally submitted in four cassettes. / SJ:maris 04/05/20 TC:5 CPT: 51413
[2020-04-04] MEDS: Lactated Ringers 1,000 ML 50 ML IV ×2 (11:30→14:39)
[2020-04-04] MEDS: Acetaminophen 500 MG Tablet 1000 MG PO (11:37)
[2020-04-04] MEDS: Celecoxib 200 MG Capsule PO (11:37)
[2020-04-04] MEDS: Gabapentin 400 MG Capsule PO (11:38)
[2020-04-04 11:54] LABS: Internal QC Validated? YES +Cl - CLEAR BKGD; Pregnancy, Serum, hCG Quali. NEGATIVE Negative
[2020-04-04 12:45] LABS: Bedside Glucose 145 mg/dL (70-110)
--- NOTE | 2020-04-04 13:04 | DCINST_ITS ---
Discharge Diet: No Restrictions - Increase fluid intake for the next 48 hours. Discharge Activity: Return to Normal Activity, May Drive - when you are no longer taking pain/narcotic meds., May Shower, May Take a Tub Bath - in 7 days Return to work on:: 04/15/20 May shower in (days): 1 May resume sexual activity in: 1 week Lifting Restrictions: 15 lbs x 4 weeks Additional Activity Instructions:: Ambulate often the next week after surgery. Nothing in the vagina for 5 days. Call your doctor if your incision/area has: Continuous Slow Oozing, Sudden Increased Bleeding, Increased Pain/ Swelling, Increased Redness, Foul Smelling Discharge Call your doctor if you observe: Fever of 101 or Higher, Using more than one pad per hour - for 2 hrs in a row Cleanse incision/area with: Soap & Water Additional Dressing/Incision Instructions:: Your incisions are covered with skin glue. It can get wet. Leave it on until it falls off or for at least 10 days. Allergies/Adverse Reactions: Allergies metformin Adverse Reaction (Verified 04/04/20 11:15) Diarrhea allergic to fast release Medications to take at Discharge Omeprazole 40 mg PO DAILY 03/28/19 traZODone [Desyrel] 50 mg PO QHS 12/31/19 Metformin HCl [Metformin HCl ER] 2,000 mg PO DAILY 01/20/20 Ibuprofen [Motrin] 600 mg PO Q6H PRN PRN #20 tab 03/27/20 Ondansetron [Zofran Odt] 4 mg PO Q8H PRN PRN #10 tab 03/27/20 Pioglitazone [Actos] 15 mg PO DAILY 04/03/20 Primary Care Physician: Tre Castle MD [Primary Care Provider] - Test Results: Test results from this visit will be discussed in further detail at your follow- up appointment, if applicable. Please Follow Up With: Kelle Longoria MD - [phone]
[2020-04-04] MEDS: Bupivacaine Mpf 0.5% 30 ML VIAL (13:37)
--- NOTE | 2020-04-04 13:37 | PCM.OPRPT ---
Report of Operation Date of Procedure: 04/04/20 Pre-Operative Diagnosis: pelvic pain, left ovarian cyst Post-Operative Diagnosis: same Surgery/Procedure Performed:: Laparoscopic left ovarian cystectomy Description of Surgical Findings:: Normal-appearing uterus and tubes. Normal peritoneal cavity. Left ovary enlarged with cyst that had yellow serous to mucinous material and some blood-tinged fluid. senior automation engineer: Shay Vidal Type of Anesthesia:: General Anesthesiologist: Alyx Gonzales Special Medications: none Specimen's removed: left ovarian cyst wall Drains: none Estimated Blood Loss (mL): 30 Fluids Replaced: 700 cc LR Description of Procedure: The patient was taken to the operating room where she was prepped and draped in the dorsolithotomy position. A weighted speculum was placed in the vagina and the anterior lip of the cervix was grasped with a tenaculum. Attempted to place the Niesha uterine manipulator, but the next was somewhat stenotic and decision was made not to proceed with that. Tenaculum was placed on the cervix just with uterine manipulation. Attention was turned to the abdomen. All port sites were infiltrated with 0.5% Marcaine before skin incisions were made. A 5 mm intraumbilical incision was made. The anterior abdominal wall was tented up with 2 towel clamps while a 5 mm blade less trocar and sleeve were directly inserted. Intraperitoneal placement was confirmed with the laparoscope. The pneumoperitoneum was created and the underlying abdominal contents were intact. The patient was placed in Trendelenburg. Right and left lower quadrant ports were placed under direct visualization lateral to the inferior epigastric vessels. The bowel was swept away and the above findings were noted. The left ovary was noted to have a cyst. Scissors with cautery were used to make approximately 1-1/2 cm incision over the cyst. Yellowish straw-colored fluid and perhaps some mucinous or sebaceous type material exuded from the cyst. The suction director of business development was used to irrigate out the cyst contents. The cyst wall was then dissected off the ovary. It was brought through the 5 mm port to be handed off the specimen. There is no active bleeding from the cyst wall bed. Some Surgicel fibrillar was placed in the ovarian cyst defect and the ovarian stroma was placed over it. Hemostasis was noted. The suction director of business development was used to remove any remaining fluid from the peritoneal cavity. The lateral ports were removed under direct visualization and no active bleeding was noted. The pneumoperitoneum was released. The skin incisions were closed with Monocryl suture in a subcuticular fashion and skin glue by the GRIZZLYMAN. The vaginal instruments were removed and the vaginal sweep was completed by me. The procedure was performed by me with assistance other than as dictated above. All sponge and needle counts were correct and the patient was taken to the recovery room in stable condition. Start time 1313 Stop time 1344 Grafts/Implants Used: none - Complications none - Admit VTE Documentation VTE Present on Admission: No VTE Mechan Device Prophylaxis: SCD's VTE Pharm Prophylaxis ordered?: No
[2020-04-04 14:10] LABS: Bedside Glucose 124 mg/dL (70-110)
== END 2020-04-04 15:41 | disposition home or self-care (01) ==
LOC: SDC 10:40 → AC 10:41
PROVIDERS: PCP Internal Medicine; Referring Provider Obstetrics & Gynecology; Visit Provider Obstetrics & Gynecology
PROC: (CPT 58662; principal; 2020-04-04 12:15)
DX: N83.12 Corpus luteum cyst of left ovary (principal); N83.02 Follicular cyst of left ovary; R10.2 Pelvic and perineal pain; G89.29 Other chronic pain; E11.65 Type 2 diabetes mellitus with hyperglycemia; K58.9 Irritable bowel syndrome, unspecified; J45.909 Unspecified asthma, uncomplicated; M54.12 Radiculopathy, cervical region; K21.9 Gastro-esophageal reflux disease without esophagitis; F32.9 Major depressive disorder, single episode, unspecified; F41.1 Generalized anxiety disorder; F17.210 Nicotine dependence, cigarettes, uncomplicated; E66.9 Obesity, unspecified; Z68.34 Body mass index [BMI] 34.0-34.9, adult; Z79.84 Long term (current) use of oral hypoglycemic drugs; Z79.899 Other long term (current) drug therapy
CPT/HCPCS: 58662; 82962; 84703; 86850; 86900; 86901; 88305; J7120

== ENCOUNTER 2020-04-23 15:24 | Emergency (ER) | payer MEDICAID, SELFPAY ==
[2020-04-04 11:25] VITALS: BMI 34.6
[2020-04-23 15:25] VITALS: BP 135/84; PULSE 96; RESP 18; TEMP 36.4; O2SAT 100; BMI 35.4
--- NOTE | 2020-04-23 16:20 | US_ITS ---
STUDY: ULTRASOUND OF THE FEMALE PELVIS - COMPLETE REASON FOR EXAM: Female, 24 years old. SEVERE LLQ PAIN. Recent left hemorrhagic cyst. LMP: 03/26/2020 TECHNIQUE: Transabdominal and Transvaginal TECHNICAL QUALITY: Adequate. COMPARISON: 03/27/2020. FINDINGS: The uterus is anteverted and is in a midline position. The uterus measures 6.0 x 4.7 x 3.0 cm. Normal uterine cervix. The endometrium measures 5 mm in thickness, and is hyperechoic. There is no demonstrated endometrial mass. There is no demonstrated myometrial mass. I.U.D. - The patient does not have an I.U.D. The right ovary is visualized. The right ovary measures 3.2 x 2.6 x 1.6 cm. There is no right ovarian cyst or ovarian mass. There is no visualized right adnexal mass or complex lesion. There is normal arterial and normal venous vascularity. The left ovary is visualized. The left ovary measures 4.8 x 2.7 x 2.7 cm. There has been decreased size of the left hemorrhagic cyst, greatest dimension currently 2.2 cm versus 4.8 cm previously. There is normal arterial and normal venous vascularity. There is no fluid in the cul-de-sac. US/Transvaginal Non- IMPRESSION: Decreasing size of left hemorrhagic cyst now measuring 2.2 cm greatest dimension. No other findings or abnormalities. Electronically Signed: Ludwig Ashley MD at 17:37 EDT , Service support ,
--- NOTE | 2020-04-23 16:21 | ED.DCSUM_ITS ---
- ER Visit Summary Date of Service: 04/23/20 Chief Complaint: Pelvic pain History of Present Illness: The patient is a 24 F who presents with pelvic and left lower quadrant pain that began yesterday. Patient had surgery for ovarian cyst 3 weeks ago. Patient states her pain resolved after her surgery. Patient states that yesterday it began. Patient states it began suddenly. Patient describes her pain as sharp. Patient states the pain is different than her ovarian cyst pain. Patient states the pain is over the left lower quadrant and suprapubic area. Patient states the pain is worse with any movements. Patient states the pain is slightly improved with ice. Patient denies any fevers or chills. Patient admits to nausea but denies any vomiting. Patient denies any dysuria or hematuria. Patient denies any abnormal vaginal bleeding or discharge. Physical Examination: Vital signs are stable. Patient is afebrile. Patient is in no acute distress. Oromucosa is pink and moist. Neck is supple. Trachea is midline. There is no JVD. Heart was regular rate and rhythm. Lungs are clear and equal bilaterally. Abdomen is soft. There is left lower quadrant and suprapubic tenderness. There is no rebound or guarding noted. Cranial nerves II through XII are intact. There are no focal motor or sensory deficits noted. Extremities are intact. There is no calf tenderness or edema. Test Results: CBC shows a slight anemia with a hemoglobin of 11.6 hematocrit 36.9. Glucose was slightly elevated at 331. Urinalysis does not show any evidence of urinary tract infection. Pelvic ultrasound shows a 2.2 cm left ovarian cyst which is improved from previous results. This was interpreted by the radiologist and reviewed by myself. Emergency Department Course and Treatment: Patient was given IV fluids and Toradol here. Patient had minimal relief with this. Patient was given a dose of 2 mg of morphine. Patient was instructed to follow-up with her primary care physician in 5 to 7 days. Patient understood and was agreeable with the plan. All questions were answered. Disposition: Discharge home Impression: Left ovarian cyst This note was generated with [employer] software. It may contain incorrect words, spelling, and punctuation that were not noted in review of the chart prior to signing ED Disposition - Plan for ED Patient: Disposition: Home or Assisted Living Diagnosis: Left ovarian cyst Instructions: ED Cyst Ovarian Referrals: Tre Castle MD [Primary Care Provider] - 3-5 Days Kelle Longoria MD [STAFF PHYSICIAN] - 3-5 Days
[2020-04-23] MEDS: 0.9% Normal Saline 1,000 ML 1000 ML IV (16:40)
[2020-04-23] MEDS: Ketorolac 30 MG/ML Syringe IV (16:40)
[2020-04-23 16:49] LABS: Mucous, Urine 0 SEEN /hpf (<or=2+); Red Blood Cells-Urine 0 SEEN /hpf (0-5); White Blood Cells 0 SEEN /hpf (0-5)
[2020-04-23 16:52] LABS: Color, Urine Yellow (Yellow); Glucose, Dipstick 1000 mg/dl (Normal); Ketone-Dipstick 5 mg/dl (Negative); Leukocyte Esterase-Dipstick Negative /ul (Negative); Nitrite-Dipstick Negative (Negative); Occult Blood-Urine Negative /ul (Negative); Protein-Dipstick Negative (Negative); Specific Gravity, Urine 1.015 (1.002-1.030); Urine Bilirubin Dipstick Negative (Negative); Urine Clarity Clear (Clear); Urine Urobilinogen Normal (Normal)
[2020-04-23 16:53] LABS: Absolute Lymphocyte Count 3.12 X10^3/uL (0.83-4.51); Absolute Neutrophil Count 4.1 X10^3/uL (2.0-7.7); Basophil# 0.04 X10^3/uL; Basophil% 0.5 % (0-1); Eosinophil# 0.11 X10^3/uL; Eosinophils% 1.4 % (0-5); Hematocrit 36.9 % (37-47); Hemoglobin 11.6 g/dL (12.0-15.0); Lymphocyte # 3.12 X10^3/ul (4.0); Lymphocyte % 39.7 % (19-41); Mean Corp Hgb Conc 31.4 g/dL (32-36); Mean Corpuscular Hgb 26.9 pg (27.0-32.0); Mean Corpuscular Volume 85.4 fL (81-99); Mean Platelet Vol. 10.8 fl (6.2-12.0); Monocyte# 0.43 X10^3/uL; Monocyte% 5.5 % (0-10); NRBC Flagged by Analyzer 0 % (0-5); Neutrophil # 4.13 X10^3/uL (2.7-7.7); Neutrophil % 52.6 % (47-70); Platelet Count 288 K/mm3 (150-450); RBC Distribution Width CV 13.2 % (11.6-14.6); RBC Distribution Width SD 41.2 fl (35.1-43.9); Red Blood Count 4.32 M/mm3 (4.2-5.4); White Blood Count 7.9 K/mm3 (4.4-11.0)
[2020-04-23 17:06] LABS: Bacteria 1+ /hpf (None Seen); Squamous Epithelial Cells - UA 0-5 SEEN /hpf (5-10)
[2020-04-23 17:17] LABS: ALB/GLOB Ratio 0.8 RATIO (0.9-2.4); AST(SGOT) 30 U/L (15-37); Alanine Aminotransfer ALT/SGPT 45 U/L (13-56); Albumin, Serum 3.3 g/dL (3.2-5.0); Alkaline Phosphatase 53 U/L (45-117); Anion Gap 7 (5-15); BUN 16 mg/dL (7-18); BUN/Creat Ratio 22.2 RATIO (10-20); Calcium,Total 9.2 mg/dL (8.5-10.1); Chloride 104 mmol/L (98-107); Creatinine, Serum 0.72 mg/dL (0.55-1.02); EST Glomerular Filtration Rate 105 mL/min (>60); Est Glom Filt Rate - Afr Amer 127 mL/min (>60); Estimated Creatinine Clearance 108.41 ml/min; Globulin 3.9 g/dL (2.2-4.2); Glucose 331 mg/dL (74-106); Potassium 4.5 mmol/L (3.5-5.1); Protein, Total 7.2 g/dL (6.4-8.2); Sodium Level 136 mmol/L (136-145)
[2020-04-23 17:35] LABS: Internal QC Validated? YES +Cl - CLEAR BKGD; Pregnancy, Serum, hCG Quali. NEGATIVE Negative
[2020-04-23] MEDS: Morphine 2 MG/ML Syringe IV (18:38)
[2020-04-23 18:41] VITALS: BP 131/74; PULSE 89; RESP 15; O2SAT 99
== END 2020-04-23 18:42 | disposition home or self-care (01) ==
PROVIDERS: Emergency Provider Emergency Medicine; PCP Internal Medicine
DX: N83.202 Unspecified ovarian cyst, left side (principal); E11.9 Type 2 diabetes mellitus without complications; Z79.84 Long term (current) use of oral hypoglycemic drugs; Z72.0 Tobacco use
CPT/HCPCS: 76830; 80053; 81001; 84703; 85025; 93976; 96361; 96374; 96375; 99283; J7030; A4216

== ENCOUNTER 2020-05-09 16:13 | Emergency (ER) | payer MEDICAID, SELFPAY ==
[2020-05-09 16:14] VITALS: BP 130/89; PULSE 96; RESP 16; TEMP 36.2; O2SAT 100; BMI 34.9
--- NOTE | 2020-05-09 17:22 | CT_ITS ---
STUDY: CT CERVICAL SPINE WITHOUT CONTRAST REASON FOR EXAM: Female, 24 years old. Numbness to right arm, swelling RADIATION DOSAGE (If Supplied By Facility): CTDIvol = ( 25.31 ) mGy, DLP = ( 529.33 ) mGycm TECHNIQUE: High resolution transaxial imaging was performed without contrast material. Sagittal and coronal images were reconstructed. Individualized dose optimization techniques were used for this CT. COMPARISON: January 20 2020 FINDINGS: Craniocervical junction and cervical spine are intact and aligned. Mineralization is normal. Paraspinous soft tissues are normal. BMI is severely elevated. C2-C3 has patent canal and foramina. C3-C4 has patent canal and foramina. C4-C5 has minor disc/endplate degeneration with patent canal and foramina. C5-C6 has minor disc endplate osteophyte with minor thecal sac stenosis. Foramina are patent bilaterally. C6-C7 has patent canal and foramina. C7-T1 has minor endplate degeneration with patent canal and foramina. CT/Spine Cervical without Contras IMPRESSION: 1. Minor degenerative changes. 2. Minor thecal sac stenosis at C5-C6. Electronically Signed: Diomedes Reddy, at 18:42 EST Tel , Service support ,
--- NOTE | 2020-05-09 17:25 | ED.DCSUM_ITS ---
- ER Visit Summary Date of Service: 05/09/20 Chief Complaint: Neck and back pain History of Present Illness: The patient is a 24 F who presents with neck and back pain that began last night. Patient states her pain started in her neck and then radiated down to her lower lumbar spine. Patient states she also has some swelling and numbness in her right arm. Patient describes her pain as stabbing. Patient states it is localized to her neck and back. Patient states nothing makes it better and nothing makes it worse. Patient denies any weakness. Patient states last night she also had paresthesias in her lower extremities. Patient denies any saddle anesthesia. Patient denies any bowel or bladder changes. Physical Examination: Vital signs are stable. Patient is afebrile. Patient is in no acute distress. Musculoskeletal exam reveals some mild tenderness over the cervical spine and paraspinal muscles. There is no bony crepitance or step- off. Range of motion was slightly limited in all motions of the cervical spine secondary to pain. Cranial nerves II through XII are intact. Strength is 5/5 bilaterally in the upper and lower extremities. Sensation was decreased to light touch in the ulnar distribution of her right upper extremity. Radial pulses are equal bilaterally. Pedal pulses are equal bilaterally. Deep tendon reflexes were 2/4 bilateral in the upper and lower extremities. Test Results: CT scan of the cervical spine was obtained. There are minor degenerative changes noted. There is minor thecal sac stenosis at C5-C6. These were interpreted by the radiologist and reviewed by myself. Emergency Department Course and Treatment: Patient was given a dose of ibuprofen here. Patient was given a prescription for ibuprofen. Patient was instructed to use ice to the area. Patient was instructed to follow-up with her primary care physician in 5 to 7 days. Patient understood and was agreeable with the plan. All questions were answered. Disposition: Discharge home Impression: 1. Cervical strain 2. Ulnar neuropathy This note was generated with [employer] dictation software. It may contain incorrect words, spelling, and punctuation that were not noted in review of the chart prior to signing ED Disposition - Plan for ED Patient: Disposition: Home or Assisted Living Diagnosis: Cervical strain, Ulnar neuropathy Instructions: ED PERIPHERAL NEUROPATHY, ED Sprain Strain Neck Prescriptions: Ibuprofen [Motrin] 800 mg PO TID PRN PRN #20 tab PRN Reason: Pain Score 1-10 Prescription Printed Referrals: Tre Castle MD [Primary Care Provider] - 3-5 Days
[2020-05-09] MEDS: Ibuprofen 600 MG Tablet PO (17:49)
== END 2020-05-09 19:13 | disposition home or self-care (01) ==
PROVIDERS: Emergency Provider Emergency Medicine; PCP Internal Medicine
DX: S16.1XXA Strain of muscle, fascia and tendon at neck level, initial encounter (principal); X58.XXXA Exposure to other specified factors, initial encounter; Y93.9 Activity, unspecified; Y92.9 Unspecified place or not applicable; Y99.9 Unspecified external cause status; M48.02 Spinal stenosis, cervical region; G56.21 Lesion of ulnar nerve, right upper limb; E11.9 Type 2 diabetes mellitus without complications; E66.9 Obesity, unspecified; Z68.34 Body mass index [BMI] 34.0-34.9, adult; Z79.84 Long term (current) use of oral hypoglycemic drugs; Z72.0 Tobacco use
CPT/HCPCS: 72125; 99282

== ENCOUNTER 2020-12-19 15:33 | Emergency (ER) | payer MEDICAID, SELFPAY ==
[2020-12-19 15:34] VITALS: BP 110/82; PULSE 116; PULSE 121; RESP 18; TEMP 35.8; O2SAT 97; O2SAT 98; BMI 34.6
--- NOTE | 2020-12-19 15:54 | CT_ITS ---
STUDY: CT ABDOMEN AND PELVIS WITH CONTRAST REASON FOR EXAM: Female, 25 years old. Abdominal pain -- IV PO Contrast RADIATION DOSAGE (If Supplied By Facility): CTDIvol = ( 18.31 ) mGy, DLP = ( 1323.64 ) mGycm TECHNIQUE: Transaxial images were obtained from the dome of the diaphragm to the symphysis pubis with oral contrast. Oral and amp; IV Gastrografin and amp; 100mL Isovue-370 was administered. Sagittal and coronal images were reconstructed. Individualized dose optimization techniques were used for this CT. COMPARISON: 07/11/2019 FINDINGS: The visualized lung bases are unremarkable. The visualized portions of the heart are within normal limits. Normal liver. There is non-visualization of the gallbladder, which may be secondary to either contraction or a prior cholecystectomy. Normal spleen. Normal pancreas. Normal bilateral adrenal glands. Normal right kidney. Normal left kidney. Normal visualized stomach. Normal small intestine. Normal colon. The appendix is visualized and appears normal. Normal abdominal aorta. Normal inferior vena cava. Normal retroperitoneum. Normal urinary bladder. Normal abdominal wall. Normal osseous structures. CT/Abdomen/Pelvis WITH Contrast IMPRESSION: Normal enhanced CT of the abdomen and pelvis. Electronically Signed: Pool Albert MD at 18:26 EDT Tel , Service support ,
--- NOTE | 2020-12-19 15:55 | ED.VIS.GI ---
HPI HPI - GI History of Present Illness Chief Complaint: Abd Pain Informant: patient Abdominal Pain/Flank Pain Onset: Days (4) Context: Gradual Onset Timing: Continuous Quality: Sharp and Stabbing Location: Diffuse Worsened by: Nothing Relieved by: Nothing Nausea/Vomiting/Emesis GI Symptom: Positive for Nausea and Vomiting Quality: Negative for Coffee ground and Hematemesis Episodes: 2 Diarrhea/Melena/Hematochezia GI Symptom: Positive for Diarrhea; Negative for Melena and Hematochezia Associated Symptoms Associated Symptoms: Negative for Dysuria and Hematuria Narrative Narrative: Patient presents with abdominal pain that has been getting worse over the past 4 days. Patient states she was having some hiccups 6 days ago and was having pain with that. Patient states that is improved after 1 day. Patient states that the pain in her abdomen has been getting worse over the past 4 days. Patient describes her pain as sharp and stabbing. Patient states it is diffuse but is holding her upper abdomen and epigastric area. Patient admits to some nausea and vomiting. Patient states she vomited twice today. Patient denies any hematemesis or coffee-ground emesis. Patient admits to diarrhea. Patient states this is typical for her at times. Patient denies any melena or hematochezia. Patient denies any dysuria or hematuria. [facility] Medical History (Updated 12/19/20 @ 19:[address] Johnnie Spence ) Anxiety Diabetes GERD (gastroesophageal reflux disease) PCOS (polycystic ovarian syndrome) Home Medications omeprazole 40 mg PO DAILY 03/28/19 [History Last Taken 07/18/19] trazodone 50 mg PO QHS 12/31/19 [History Last Taken Unknown] metformin 2,000 mg PO DAILY 01/20/20 [History Last Taken Unknown] ibuprofen 600 mg PO Q6H PRN PRN #20 tab 03/27/20 [Rx Last Taken Unknown] ondansetron 4 mg PO Q8H PRN PRN #10 tab 03/27/20 [Rx Last Taken Unknown] pioglitazone 15 mg PO DAILY 04/03/20 [History Last Taken Unknown] ibuprofen 800 mg PO TID PRN PRN #20 tab 05/09/20 [Rx Last Taken Unknown] Allergy/AdvReac Type Severity Reaction Status Date / Time metformin AdvReac Diarrhea Verified 05/09/20 16:14 Surgical History (Updated 12/19/20 @ 15:[address] Johnnei Spence DO) History of cholecystectomy History of D&C History of ovarian cystectomy Social History Smoking Status: Current every day smoker tobacco type: cigarettes ROS ROS ED Constitutional Constitutional ED: Denies chills or fever(s) Eyes Eyes: Denies blurry vision or change in vision ENT ENT ED: Denies rhinorrhea or sore throat Cardiovascular Cardiovascular: Denies chest pain or palpitations Respiratory/Chest Respiratory/Chest: Denies cough or dyspnea Gastrointestinal Gastrointestinal: Reports abdominal pain, diarrhea, nausea and vomiting Genitourinary Genitourinary ED: Denies dysuria or hematuria Musculoskeletal Musculoskeletal: Reports back pain; Denies neck pain Integumentary Denies abscess or rash Neurologic Neurologic: Reports headache(s) and weakness Allergic/Immunologic Allergic/Immunologic ED: Denies mouth swelling or urticaria EXAM Physical Exam Const Vital Signs: 12/19/20 15:34 12/19/20 18:18 Temperature 96.5 F L Temperature Source Temporal Pulse Rate 116 H Respiratory Rate 18 12 Blood Pressure 110/82 H Blood Pressure Mean 91 Pulse Ox 97 Oxygen Delivery Method Room Air Positive well nourished, well developed and obese General Appearance ED: well developed Nutritional Appearance: obese HEENT Reports moist mucous membranes Neck supple and no JVD Resp normal respiratory effort and clear to auscultation bilaterally Cardio regular rate and regular rhythm GI non-distended Auscultation: normoactive bowel sounds Palpation: soft and tender epigastric, LUQ and RUQ; Negative for guarding or rebound tenderness present Neuro CN's II-XII intact bilaterally, moves all extremities and no sensory deficits noted Sensorium / Orientation: alert, oriented to person, oriented to place and oriented to time Motor Exam: strength 5/5 throughout Psych mental status grossly normal MDM MDM MDM Narrative Medical decision making narrative: Patient was given IV fluids and Zofran. Patient does have a care plan which prohibits opiate analgesics. Patient was given Tylenol. CBC was within normal limits. Comprehensive metabolic profile was normal except for slightly elevated glucose of 198. Anion gap was normal. Urinalysis shows 10-25 red blood cells and 5-10 epithelial cells. There is no evidence of urinary tract infection. hCG was negative. CT scan of the abdomen pelvis was obtained. There is no acute intra-abdominal process noted. Patient and family were advised that this is most likely gastritis. Patient was instructed to continue her omeprazole as prescribed. Patient was instructed to follow-up with her primary care physician in 3 to 5 days. Patient understood and was agreeable with the plan. All questions were answered. Lab Data Attestation: I reviewed the patient's lab results. Labs: Laboratory Results - last 24 hr 12/19/20 12/19/20 12/19/20 16:07 16:07 17:03 WBC 6.2 RBC 5.00 Hgb 13.4 Hct 41.7 MCV 83.4 MCH 26.8 L MCHC 32.1 RDW Std Deviation 44.8 H RDW Coeff of Susan 14.6 Plt Count 308 MPV 10.2 Immature Gran % (Auto) 0.200 Neut % (Auto) 66.8 Lymph % (Auto) 24.7 [place] % (Auto) 7.0 Eos % (Auto) 0.8 Baso % (Auto) 0.5 Absolute Neuts (auto) 4.1 Absolute Lymphs (auto) 1.52 Nucleated RBC % 0 Sodium 138 Potassium 4.0 Chloride 106 Carbon Dioxide 24.0 Anion Gap 8 BUN 11 Creatinine 0.77 Estim Creat Clear Calc 100.50 Est GFR (MDRD) Af Amer 117 Est GFR (MDRD) Non-Af 96 BUN/Creatinine Ratio 14.2 Glucose 198 H Calcium 9.3 Total Bilirubin 0.50 AST 30 ALT 43 Alkaline Phosphatase 57 Total Protein 8.0 Albumin 3.6 Globulin 4.4 H Albumin/Globulin Ratio 0.8 L Lipase 97 Urine Color Yellow Urine Clarity Sl. Cloudy Urine pH 6.0 Ur Specific [place] 1.015 Urine Protein 15 H Urine Glucose (UA) Normal Urine Ketones Negative Urine Occult Blood 150 H Urine Nitrite Negative Urine Bilirubin Negative Urine Urobilinogen Normal Ur Leukocyte Esterase Negative Urine RBC 10-25 SEEN Urine WBC 0-5 SEEN Ur Squamous Epith Cells 5-10 SEEN Amorphous Sediment 1+ URATE Urine Bacteria 1+ Urine Mucus 0 SEEN Urine Test 12/19/20 17:03 WBC RBC Hgb Hct MCV MCH MCHC RDW Std Deviation RDW Coeff of Susan Plt Count MPV Immature Gran % (Auto) Neut % (Auto) Lymph % (Auto) [place] % (Auto) Eos % (Auto) Baso % (Auto) Absolute Neuts (auto) Absolute Lymphs (auto) Nucleated RBC % Sodium Potassium Chloride Carbon Dioxide Anion Gap BUN Creatinine Estim Creat Clear Calc Est GFR (MDRD) Af Amer Est GFR (MDRD) Non-Af BUN/Creatinine Ratio Glucose Calcium Total Bilirubin AST ALT Alkaline Phosphatase Total Protein Albumin Globulin Albumin/Globulin Ratio Lipase Urine Color Urine Clarity Urine pH Ur Specific [place] Urine Protein Urine Glucose (UA) Urine Ketones Urine Occult Blood Urine Nitrite Urine Bilirubin Urine Urobilinogen Ur Leukocyte Esterase Urine RBC Urine WBC Ur Squamous Epith Cells Amorphous Sediment Urine Bacteria Urine Mucus Urine Test Negative Radiography Diagnostic Testing: Radiology Impression Abdomen/Pelvis CT 12/19/20 15:54 IMPRESSION: Normal enhanced CT of the abdomen and pelvis. Electronically Signed: Pool Albert MD at 18:26 EDT Tel , Service support , Discharge Plan Triage Chief Complaint: Abd Pain ED Provider: Johnnie Spence Dx/Rx/DC Orders Clinical Impression: Gastritis Instructions: ED Gastritis (Adult) Prescriptions: No Action omeprazole 40 MG capsule,delayed release(DR/EC) 40 mg PO DAILY RF: 0 trazodone 50 MG tablet 50 mg PO QHS RF: 0 metformin 500 MG tablet extended release 24 hr 2,000 mg PO DAILY RF: 0 ondansetron 4 MG tablet 4 mg PO Q8H PRN PRN (Reason: Nausea) Qty: 10 RF: 0 ibuprofen 600 MG tablet 600 mg PO Q6H PRN PRN (Reason: Pain Score 1-10/10) Qty: 20 RF: 0 pioglitazone 15 MG tablet 15 mg PO DAILY RF: 0 ibuprofen 800 MG tablet 800 mg PO TID PRN PRN (Reason: Pain Score 1-10) Qty: 20 RF: 0 Primary Care Provider: Tre Castle Referrals: Tre Castle MD [Primary Care Provider] - 3-5 Days Disposition Disposition: Home, self care
[2020-12-19 16:16] LABS: Absolute Lymphocyte Count 1.52 X10^3/uL (0.83-4.51); Absolute Neutrophil Count 4.1 X10^3/uL (2.0-7.7); Basophil# 0.03 X10^3/uL; Basophil% 0.5 % (0-1); Eosinophil# 0.05 X10^3/uL; Eosinophils% 0.8 % (0-5); Hematocrit 41.7 % (37-47); Hemoglobin 13.4 g/dL (12.0-15.0); Lymphocyte # 1.52 X10^3/ul (0.83-4.51); Lymphocyte % 24.7 % (19-41); Mean Corp Hgb Conc 32.1 g/dL (32-36); Mean Corpuscular Hgb 26.8 pg (27.0-32.0); Mean Corpuscular Volume 83.4 fL (81-99); Mean Platelet Vol. 10.2 fl (6.2-12.0); Monocyte# 0.43 X10^3/uL; NRBC Flagged by Analyzer 0 % (0-5); Neutrophil # 4.12 X10^3/uL (2.7-7.7); Neutrophil % 66.8 % (47-70); Platelet Count 308 K/mm3 (150-450); RBC Distribution Width CV 14.6 % (11.6-14.6); RBC Distribution Width SD 44.8 fl (35.1-43.9); White Blood Count 6.2 K/mm3 (4.4-11.0)
--- NOTE | 2020-12-19 16:25 | ED.RN ---
per dr agsoto do not give morphine d/t careplan.
[2020-12-19] MEDS: 0.9% Normal Saline 1,000 ML 1000 ML IV (16:27)
[2020-12-19] MEDS: Ondansetron 4 MG/2 ML Vial IV (16:27)
[2020-12-19 16:40] LABS: ALB/GLOB Ratio 0.8 RATIO (0.9-2.4); AST(SGOT) 30 U/L (15-37); Alanine Aminotransfer ALT/SGPT 43 U/L (13-56); Albumin, Serum 3.6 g/dL (3.2-5.0); Alkaline Phosphatase 57 U/L (45-117); Anion Gap 8 (5-15); BUN 11 mg/dL (7-18); BUN/Creat Ratio 14.2 RATIO (10-20); Calcium,Total 9.3 mg/dL (8.5-10.1); Chloride 106 mmol/L (98-107); Creatinine, Serum 0.77 mg/dL (0.55-1.02); EST Glomerular Filtration Rate 96 mL/min (>60); Est Glom Filt Rate - Afr Amer 117 mL/min (>60); Globulin 4.4 g/dL (2.2-4.2); Glucose 198 mg/dL (74-106); Lipase 97 U/L (73-393); Sodium Level 138 mmol/L (136-145)
[2020-12-19 17:12] LABS: Mucous, Urine 0 SEEN /hpf (<or=2+)
[2020-12-19 17:21] LABS: Color, Urine Yellow (Yellow); Glucose, Dipstick Normal (Normal); Ketone-Dipstick Negative (Negative); Leukocyte Esterase-Dipstick Negative /ul (Negative); Nitrite-Dipstick Negative (Negative); Occult Blood-Urine 150 /ul (Negative); Protein-Dipstick 15 mg/dl (Negative); Specific Gravity, Urine 1.015 (1.002-1.030); Urine Bilirubin Dipstick Negative (Negative); Urine Clarity Sl. Cloudy (Clear); Urine Urobilinogen Normal (Normal)
[2020-12-19 17:45] LABS: Amorphous Sediment 1+ URATE; Bacteria 1+ /hpf (None Seen); Red Blood Cells-Urine 10-25 SEEN /hpf (0-5); Squamous Epithelial Cells - UA 5-10 SEEN /hpf (5-10); White Blood Cells 0-5 SEEN /hpf (0-5)
[2020-12-19 17:50] LABS: Internal QC Validated? YES +Cl - CLEAR BKGD
[2020-12-19 17:51] LABS: Pregnancy, Urine Negative Negative
[2020-12-19 18:18] VITALS: RESP 12
--- NOTE | 2020-12-19 19:44 | ED.RN ---
NURSE CALLED INTO THE ROOM TO DISCUSS PATENT CARE. MOTHER IS CONCERNED PATIENT WAS NOT RECEIVING PROPER CARE. SPOKE WITH PATIENT AND FAMILY AND WENT OVER LAB RESULTS AND TEST RESULTS. FAMILY EXPRESSED VERBAL UNDERSTANDING OF RESULTS AND ARE MORE COMFORTABLE GOING HOME AFTER EXPLAINTION OF TEST RESULTS.
[2020-12-19] MEDS: Acetaminophen 500 MG Tablet 1000 MG PO (19:49)
[2020-12-19 19:50] VITALS: PULSE 85; RESP 16; O2SAT 98
== END 2020-12-19 19:52 | disposition home or self-care (01) ==
PROVIDERS: Emergency Provider Emergency Medicine; PCP Internal Medicine
DX: K29.70 Gastritis, unspecified, without bleeding (principal); F17.210 Nicotine dependence, cigarettes, uncomplicated; E66.9 Obesity, unspecified; E11.9 Type 2 diabetes mellitus without complications; Z79.84 Long term (current) use of oral hypoglycemic drugs
CPT/HCPCS: 74177; 80053; 81001; 81025; 83690; 85025; 96361; 96374; 96375; 99283; J7030; Q9967; A4216; J2405

== ENCOUNTER 2020-12-30 17:22 | Emergency (ER) | payer MEDICAID, SELFPAY ==
[2020-12-30 17:23] VITALS: BP 123/85; PULSE 112; RESP 16; TEMP 37.2; O2SAT 99; BMI 34.9
[2020-12-30 18:33] VITALS: RESP 14
--- NOTE | 2020-12-30 19:15 | CT_ITS ---
STUDY: CT ORBITS WITH CONTRAST REASON FOR EXAM: Female, 25 years old. Facial abscess RADIATION DOSAGE (If Supplied By Facility): CTDIvol = ( 29.38 ) mGy, DLP = ( 664.99 ) mGycm TECHNIQUE: The patient was scanned in a multi detector CT scanner. Transaxial imaging was performed following the intravenous administration of IV 100mL Isovue-370. Sagittal and coronal images were reconstructed. Individualized dose optimization techniques were used for this CT. COMPARISON: None. FINDINGS: Moderate left facial soft tissue swelling. No organized collection. Normal globes. Normal intraconal spaces. Normal bilateral extraocular muscles. No postseptal inflammatory stranding. Normal bilateral medial and inferior orbital norris. No facial fracture. No destructive bone changes. Mild mucosal thickening in the right sphenoid and right maxillary sinuses. Sinuses are otherwise clear. Shotty cervical adenopathy, greater on the left. CT/Orb Sella Post Fossa Ear W/CON IMPRESSION: 1. Left facial soft tissue swelling, no collection. 2. Shotty cervical adenopathy. Electronically Signed: Maribel Bronson MD at 20:56 EDT Tel , Service support ,
--- NOTE | 2020-12-30 19:18 | EX.ED.DYSGE1 ---
HPI History of Present Illness Chief Complaint: Abscess Informant: patient Onset/Context/Timing Onset: Days (4) Context: Gradual Onset Timing: Continuous Quality: Pressure, throbbing Location: Left cheek/periorbital area Worsened by: Smiling Relieved by: Nothing Narrative Narrative: Patient presents with abscess to her left cheek and periorbital area that has been getting worse over the past 4 days. Patient states she went to [facility] 2 days ago and was told to put warm compresses on it but they did not drain it. Patient states she went to [facility] yesterday where they attempted to drain it. Patient states that they were not able to drain any purulent material from the area. Patient states that they told her if the pain and swelling got worse to come here to [place] because this is where they would transfer her anyhow. Patient denies any fevers or chills. Patient admits to nausea but denies any vomiting. PFSH PFS Medical History Anxiety Diabetes GERD (gastroesophageal reflux disease) PCOS (polycystic ovarian syndrome) Home Medications omeprazole 40 mg PO DAILY 03/28/19 [History Last Taken 07/18/19] trazodone 50 mg PO QHS 12/31/19 [History Last Taken Unknown] metformin 2,000 mg PO DAILY 01/20/20 [History Last Taken Unknown] pioglitazone [Actos] 15 mg PO DAILY 04/03/20 [History Last Taken Unknown] amoxicillin-pot clavulanate 875 mg PO Q12H #20 tablet 12/30/20 [Rx Last Taken Unknown] Allergy/AdvReac Type Severity Reaction Status Date / Time metformin AdvReac Diarrhea Verified 12/30/20 17:23 Surgical History History of cholecystectomy History of D&C History of ovarian cystectomy Social History Smoking Status: Current every day smoker tobacco type: cigarettes ROS ROS ED Constitutional Constitutional ED: Denies chills or fever(s) Eyes Eyes: Denies blurry vision or change in vision ENT ENT ED: Denies rhinorrhea or sore throat Cardiovascular Cardiovascular: Denies chest pain or palpitations Respiratory/Chest Respiratory/Chest: Denies cough or dyspnea Gastrointestinal Gastrointestinal: Reports nausea; Denies vomiting Genitourinary Genitourinary ED: Denies dysuria or hematuria Musculoskeletal Musculoskeletal: Denies back pain or neck pain Integumentary Reports abscess; Denies rash Neurologic Neurologic: Denies headache(s) or weakness Allergic/Immunologic Allergic/Immunologic ED: Denies mouth swelling or urticaria EXAM Physical Exam Const Vital Signs: 12/30/20 17:23 12/30/20 18:33 12/30/20 19:26 Temperature 99.0 F 98.7 F Temperature Source Temporal Temporal Pulse Rate 112 H 86 Respiratory Rate 16 14 16 Blood Pressure 123/85 H 121/75 H Blood Pressure Mean 97 90 Pulse Ox 99 100 Oxygen Delivery Method Room Air 12/30/20 20:13 12/30/20 21:43 Temperature 97.7 F L 98.1 F Temperature Source Temporal Temporal Pulse Rate 87 88 Respiratory Rate 16 19 H Blood Pressure 124/80 H 130/78 H Blood Pressure Mean 94 95 Pulse Ox 99 97 Oxygen Delivery Method Room Air Room Air Positive well nourished and well developed General Appearance ED: well developed HEENT Reports moist mucous membranes Eyes PERRL and EOMs intact bilaterally Neck supple and no JVD Resp normal respiratory effort and clear to auscultation bilaterally Cardio regular rate and regular rhythm GI normal to inspection, nondistended, normoactive bowel sounds and non-tender Palpation: soft Neuro oriented x3, CN's II-XII intact bilaterally and no sensory deficits noted Sensorium / Orientation: alert Skin Skin Narrative: There is tenderness, edema, and induration over the left zygomatic area. There is no fluctuance. There is no active discharge or drainage. There is some tenderness over the left cheek. Oral mucosa is pink and moist. Oropharynx is clear. Neck is supple. Trachea is midline. There is no JVD. MDM MDM MDM Narrative Medical decision making narrative: CBC and comprehensive metabolic profile were obtained were within normal limits. CT scan of the orbits was obtained. There is some soft tissue swelling. There is no fluid collection consistent with an abscess. This was interpreted by the radiologist and reviewed by myself. Patient was given a dose of Unasyn here. Patient was instructed to stop her Keflex. Patient was given a prescription for Augmentin. Patient was instructed to follow-up with her primary care physician in 3 to 5 days. Patient understood and was agreeable with the plan. All questions were answered. Lab Data Attestation: I reviewed the patient's lab results. Labs: Laboratory Results - last 24 hr 12/30/20 12/30/20 19:25 19:25 WBC 7.9 RBC 4.55 Hgb 12.1 Hct 37.9 MCV 83.3 MCH 26.6 L MCHC 31.9 L RDW Std Deviation 44.1 H RDW Coeff of Susan 14.5 Plt Count 333 MPV 9.8 Immature Gran % (Auto) 0.300 Neut % (Auto) 63.5 Lymph % (Auto) 28.5 [place] % (Auto) 6.7 Eos % (Auto) 0.6 Baso % (Auto) 0.4 Absolute Neuts (auto) 5.0 Absolute Lymphs (auto) 2.24 Nucleated RBC % 0 Sodium 137 Potassium 3.6 Chloride 104 Carbon Dioxide 26.0 Anion Gap 7 BUN 6 L Creatinine 0.63 Estim Creat Clear Calc 122.83 Est GFR (MDRD) Af Amer 149 Est GFR (MDRD) Non-Af 123 BUN/Creatinine Ratio 9.6 L Glucose 85 Calcium 8.9 Total Bilirubin 0.60 AST 23 ALT 50 Alkaline Phosphatase 56 Total Protein 7.7 Albumin 3.6 Globulin 4.1 Albumin/Globulin Ratio 0.9 Radiography Diagnostic Testing: Radiology Impression CT Orbit Sella Inner 12/30/20 19:15 IMPRESSION: 1. Left facial soft tissue swelling, no collection. 2. Shotty cervical adenopathy. Electronically Signed: Maribel Bronson MD at 20:56 EDT Tel , Service support , Discharge Plan Triage Chief Complaint: Abscess ED Provider: Johnnie Spence Dx/Rx/DC Orders Clinical Impression: Cellulitis of face Instructions: ED Cellulitis, Facial Prescriptions: New amoxicillin-pot clavulanate [amoxicillin-pot clavulanate] 875 MG tablet 875 mg PO Q12H Qty: 20 RF: 0 No Action omeprazole 40 MG capsule,delayed release(DR/EC) 40 mg PO DAILY RF: 0 trazodone 50 MG tablet 50 mg PO QHS RF: 0 metformin 500 MG tablet extended release 24 hr 2,000 mg PO DAILY RF: 0 pioglitazone [Actos] 15 MG tablet 15 mg PO DAILY RF: 0 Primary Care Provider: Tre Castle Referrals: Tre Castle MD [Primary Care Provider] - 3-5 Days Activity Restrictions/Additional Instructions: Stop taking the Keflex. Continue taking Bactrim. Take the Augmentin as prescribed. Make sure you finish your antibiotics. Disposition Disposition: Home, Self Care
[2020-12-30 19:26] VITALS: BP 121/75; PULSE 86; RESP 16; TEMP 37.1; O2SAT 100
[2020-12-30 19:30] LABS: Absolute Lymphocyte Count 2.24 X10^3/uL (0.83-4.51); Basophil# 0.03 X10^3/uL; Basophil% 0.4 % (0-1); Eosinophil# 0.05 X10^3/uL; Eosinophils% 0.6 % (0-5); Hematocrit 37.9 % (37-47); Hemoglobin 12.1 g/dL (12.0-15.0); Lymphocyte # 2.24 X10^3/ul (0.83-4.51); Lymphocyte % 28.5 % (19-41); Mean Corp Hgb Conc 31.9 g/dL (32-36); Mean Corpuscular Hgb 26.6 pg (27.0-32.0); Mean Corpuscular Volume 83.3 fL (81-99); Mean Platelet Vol. 9.8 fl (6.2-12.0); Monocyte# 0.53 X10^3/uL; Monocyte% 6.7 % (0-10); NRBC Flagged by Analyzer 0 % (0-5); Neutrophil % 63.5 % (47-70); Platelet Count 333 K/mm3 (150-450); RBC Distribution Width CV 14.5 % (11.6-14.6); RBC Distribution Width SD 44.1 fl (35.1-43.9); Red Blood Count 4.55 M/mm3 (4.2-5.4); White Blood Count 7.9 K/mm3 (4.4-11.0)
[2020-12-30 19:48] LABS: ALB/GLOB Ratio 0.9 RATIO (0.9-2.4); AST(SGOT) 23 U/L (15-37); Alanine Aminotransfer ALT/SGPT 50 U/L (13-56); Albumin, Serum 3.6 g/dL (3.2-5.0); Alkaline Phosphatase 56 U/L (45-117); Anion Gap 7 (5-15); BUN 6 mg/dL (7-18); BUN/Creat Ratio 9.6 RATIO (10-20); Calcium,Total 8.9 mg/dL (8.5-10.1); Chloride 104 mmol/L (98-107); Creatinine, Serum 0.63 mg/dL (0.55-1.02); EST Glomerular Filtration Rate 123 mL/min (>60); Est Glom Filt Rate - Afr Amer 149 mL/min (>60); Estimated Creatinine Clearance 122.83 ml/min; Globulin 4.1 g/dL (2.2-4.2); Glucose 85 mg/dL (74-106); Potassium 3.6 mmol/L (3.5-5.1); Protein, Total 7.7 g/dL (6.4-8.2); Sodium Level 137 mmol/L (136-145)
[2020-12-30 20:13] VITALS: BP 124/80; PULSE 87; RESP 16; TEMP 36.5; O2SAT 98; O2SAT 99
--- NOTE | 2020-12-30 20:17 | ED.RN ---
patient requesting tylenol for pain in face
[2020-12-30 21:43] VITALS: BP 130/78; PULSE 88; RESP 19; TEMP 36.7; O2SAT 97
[2020-12-30 22:13] VITALS: BP 134/80; PULSE 84; RESP 16; RESP 18; TEMP 36.8; O2SAT 98
== END 2020-12-30 22:15 | disposition home or self-care (01) ==
PROVIDERS: Emergency Provider Emergency Medicine; PCP Internal Medicine
DX: L03.211 Cellulitis of face (principal); F17.210 Nicotine dependence, cigarettes, uncomplicated; E11.9 Type 2 diabetes mellitus without complications; K21.9 Gastro-esophageal reflux disease without esophagitis; Z79.84 Long term (current) use of oral hypoglycemic drugs; Z79.899 Other long term (current) drug therapy
CPT/HCPCS: 70481; 80053; 85025; 96365; 96366; 99283; J7050; Q9967; A4216; J0295

== ENCOUNTER 2021-02-22 14:28 | Emergency (ER) | payer MEDICAID, SELFPAY ==
[2021-02-22 14:34] VITALS: BP 121/87; PULSE 97; RESP 16; TEMP 36.6; O2SAT 99; BMI 34.9
--- NOTE | 2021-02-22 15:26 | EKG12_ITS ---
Test Reason : CP Blood Pressure : / mmHG Vent. Rate : 090 BPM Atrial Rate : 090 BPM P-R Int : 164 ms QRS Dur : 082 ms QT Int : 362 ms P-R-T Axes : 039 079 021 degrees QTc Int : 442 ms Normal sinus rhythm Nonspecific T wave abnormality Abnormal ECG Confirmed by LINDA GÓMEZ, CORY ([id number]), editor dictionary [employer]PHONSE [employer]IPPS ([id number]) on 02/26/2021 9:03:09 AM Referred By: SHEILA/BARTOLOME Confirmed By:CORY MCKEON MD
--- NOTE | 2021-02-22 15:33 | ED.VIS.CHEST ---
HPI History of Present Illness Chief Complaint: Chest Pain Informant: patient Onset/Context/Timing Onset: Days (3) Activity at onset: gradual Timing: Intermittent and Lasts (5 to 10 minutes) Quality: Positive for Sharp and Stabbing Location: Left Parasternal Worsened By: - (Walking) Relieved By: - (Eating) Associated Symptoms: Positive for Diaphoresis, Dyspnea, Cough, Lightheadedness and Palpitations; Negative for Nausea, Vomiting, Fever and Acid Reflux Narrative Narrative: Patient presents with chest pain that has been intermittent for the past 3 days. Patient describes her pain as sharp. Patient states the pain is over the left parasternal area. Patient states that when it began 3 days ago she was having some numbness and tingling in her left arm. Patient states that resolved and has not returned. Patient states the chest pain has been coming and going over the last 3 days. Patient states that when it comes on it last for approximately 5 to 10 minutes then resolves. Patient states her pain is worse with walking but is better after eating. Patient admits to some diaphoresis. Patient admits to some shortness of breath and cough. Patient admits to some episodes of heart racing. Patient also admits to some lightheadedness. Patient is also concerned about possible Covid. Patient states she has been exposed to COVID-19 recently. Patient states she has not gotten her Covid vaccine yet. CVD Risk Factors: Positive for Diabetes and Smoking; Negative for Hypertension, Hypercholesterolemia and Family History 1' </=55 PE Risk Factors: Negative for Recent Travel/Surgery, Recent Immobilization, Prior DVT or PE, Cancer and OCP + Smoking + >/=35 PFSH PFSH Medical History Anxiety Diabetes GERD (gastroesophageal reflux disease) PCOS (polycystic ovarian syndrome) Home Medications omeprazole 40 mg PO DAILY 03/28/19 [History Last Taken 07/18/19] trazodone 50 mg PO QHS 12/31/19 [History Last Taken Unknown] metformin 2,000 mg PO DAILY 01/20/20 [History Last Taken Unknown] pioglitazone [Actos] 15 mg PO DAILY 04/03/20 [History Last Taken Unknown] duloxetine 30 mg PO DAILY 02/22/21 [History Last Taken Unknown] glipizide 5 mg PO DAILY 02/22/21 [History Last Taken Unknown] Allergy/AdvReac Type Severity Reaction Status Date / Time metformin AdvReac Diarrhea Verified 02/22/21 14:34 Surgical History History of cholecystectomy History of D&C History of ovarian cystectomy Social History Smoking Status: Current every day smoker tobacco type: cigarettes ROS ROS ED Constitutional Constitutional ED: Reports chills and subjective; Denies fever(s) Eyes Eyes: Denies blurry vision or change in vision ENT ENT ED: Reports sore throat; Denies rhinorrhea Cardiovascular Cardiovascular: Reports chest pain, palpitations and racing heartbeat Respiratory/Chest Respiratory/Chest: Reports cough and dyspnea Gastrointestinal Gastrointestinal: Reports nausea; Denies abdominal pain or vomiting Genitourinary Genitourinary ED: Denies dysuria or hematuria Musculoskeletal Musculoskeletal: Denies back pain or neck pain Integumentary Denies abscess or rash Neurologic Neurologic: Reports headache(s) and paresthesias LUE; Denies weakness Allergic/Immunologic Allergic/Immunologic ED: Denies mouth swelling or urticaria EXAM Physical Exam Const Vital Signs: 02/22/21 14:34 02/22/21 15:42 02/22/21 15:45 Temperature 98 F Temperature Source Temporal Pulse Rate 97 82 Respiratory Rate 16 13 Respiratory Effort Normal Non-Labored Respiratory Pattern Normal Blood Pressure 121/87 H 111/70 Blood Pressure Mean 98 83 Pulse Ox 99 98 100 Oxygen Delivery Method Room Air Room Air Room Air Positive well nourished, well developed and obese General Appearance ED: well developed Nutritional Appearance: obese HEENT normocephalic and atraumatic Eyes PERRL and EOMs intact bilaterally Neck supple and no JVD Chest Wall Chest: tenderness costochondral junction Resp normal respiratory effort and clear to auscultation bilaterally Effort and Inspection: Negative for respiratory distress Cardio regular rate, regular rhythm and no murmurs GI normal to inspection, nondistended, normoactive bowel sounds, soft to palpation, non-tender and non-distended Extremity normal to inspection General Extremety ED: Negative for edema or tenderness General Extremity: Negative for edema Neuro oriented x3, CN's II-XII intact bilaterally and no sensory deficits noted Sensorium / Orientation: awake and alert Motor Exam: strength 5/5 throughout Psych mental status grossly normal Heart Score History: Slightly/Non-Suspicious ECG: Nonspecific Repolarization Age: </= 45 years Risk Factors: 1 or 2 Risk Factors Troponin: </= Normal Limit Score: 2 MDM MDM MDM Narrative Medical decision making narrative: EKG was obtained. On my interpretation, it showed a normal sinus rhythm with a rate of 90. [place] interval, QRS interval, and QTc intervals were all normal. [place] was normal. There are no acute ST or T wave changes. Portable 1 view chest x-ray was obtained. On my interpretation, lung ng are clear. There is normal cardiac silhouette. Bony thorax is normal. There is no acute process noted. Radiologist also interpreted the x-ray and agrees. CBC and basic metabolic profile were obtained and were within normal limits. High-sensitivity troponin was normal. COVID-19 rapid antigen was obtained and was negative. Patient was advised of her findings. Patient has a HEART score of 2. Patient was advised that this is low risk for acute cardiac event. Patient was advised that this is likely musculoskeletal in nature. Patient was instructed to follow-up with her primary care physician in 5 to 7 days. Patient understood and was agreeable with the plan. All questions were answered. Lab Data Attestation: I reviewed the patient's lab results. Labs: Laboratory Results - last 24 hr 02/22/21 02/22/21 15:10 15:10 WBC 7.5 RBC 4.72 Hgb 12.5 Hct 40.0 MCV 84.7 MCH 26.5 L MCHC 31.3 L RDW Std Deviation 41.4 RDW Coeff of Susan 13.2 Plt Count 316 MPV 10.8 Immature Gran % (Auto) 0.400 Neut % (Auto) 51.1 Lymph % (Auto) 40.2 [place] % (Auto) 6.8 Eos % (Auto) 1.2 Baso % (Auto) 0.3 Absolute Neuts (auto) 3.8 Absolute Lymphs (auto) 3.00 Nucleated RBC % 0 Sodium 138 Potassium 4.0 Chloride 104 Carbon Dioxide 28.0 Anion Gap 6 BUN 13 Creatinine 0.66 Estim Creat Clear Calc 117.25 Est GFR (MDRD) Af Amer 140 Est GFR (MDRD) Non-Af 116 BUN/Creatinine Ratio 19.7 Glucose 171 H Calcium 9.5 Troponin I High Sens 4 Radiography Diagnostic Testing: Radiology Impression Chest X-Ray 02/22/21 15:55 IMPRESSION: Normal x-ray examination of the chest. Electronically Signed: Pool Albert MD at 16:41 EDT Tel , Service support , EKG Initial EKG: Attestation: I personally reviewed and interpreted this EKG as follows: Interpretation: Sinus Rhythm (90), No Acute Injury Pattern and Non-Specific ST Changes Prior EKG tracings: available for review Prior: Unchanged (12/31/2019) Discharge Plan Triage Chief Complaint: Chest Pain ED Provider: Johnnie Spence Dx/Rx/DC Orders Clinical Impression: Chest pain Instructions: ED Chest Pain, Noncardiac Prescriptions: No Action omeprazole 40 MG capsule,delayed release(DR/EC) 40 mg PO DAILY RF: 0 trazodone 50 MG tablet 50 mg PO QHS RF: 0 metformin 500 MG tablet extended release 24 hr 2,000 mg PO DAILY RF: 0 pioglitazone [Actos] 15 MG tablet 15 mg PO DAILY RF: 0 glipizide 5 mg tablet extended release 24hr 5 mg PO DAILY RF: 0 duloxetine 30 mg capsule,delayed release(DR/EC) 30 mg PO DAILY RF: 0 Primary Care Provider: Tre Castle Referrals: Tre Castle MD [Primary Care Provider] - 3-5 Days Disposition Disposition: Home, Self Care
[2021-02-22] MEDS: Aspirin 81 MG TAB.CHEW 324 MG PO (15:39)
[2021-02-22 15:40] LABS: Absolute Neutrophil Count 3.8 X10^3/uL (2.0-7.7); Basophil# 0.02 X10^3/uL; Basophil% 0.3 % (0-1); Eosinophil# 0.09 X10^3/uL; Eosinophils% 1.2 % (0-5); Hemoglobin 12.5 g/dL (12.0-15.0); Lymphocyte % 40.2 % (19-41); Mean Corp Hgb Conc 31.3 g/dL (32-36); Mean Corpuscular Hgb 26.5 pg (27.0-32.0); Mean Corpuscular Volume 84.7 fL (81-99); Mean Platelet Vol. 10.8 fl (6.2-12.0); Monocyte# 0.51 X10^3/uL; Monocyte% 6.8 % (0-10); NRBC Flagged by Analyzer 0 % (0-5); Neutrophil # 3.82 X10^3/uL (2.7-7.7); Neutrophil % 51.1 % (47-70); Platelet Count 316 K/mm3 (150-450); RBC Distribution Width CV 13.2 % (11.6-14.6); RBC Distribution Width SD 41.4 fl (35.1-43.9); Red Blood Count 4.72 M/mm3 (4.2-5.4); White Blood Count 7.5 K/mm3 (4.4-11.0)
[2021-02-22 15:42] VITALS: O2SAT 98
[2021-02-22 15:45] VITALS: BP 111/70; PULSE 82; RESP 13; O2SAT 100
[2021-02-22 15:55] LABS: Anion Gap 6 (5-15); BUN 13 mg/dL (7-18); BUN/Creat Ratio 19.7 RATIO (10-20); Calcium,Total 9.5 mg/dL (8.5-10.1); Chloride 104 mmol/L (98-107); Creatinine, Serum 0.66 mg/dL (0.55-1.02); EST Glomerular Filtration Rate 116 mL/min (>60); Est Glom Filt Rate - Afr Amer 140 mL/min (>60); Estimated Creatinine Clearance 117.25 ml/min; Glucose 171 mg/dL (74-106); Sodium Level 138 mmol/L (136-145); Troponin-I HS 4 pg/mL (3.0-54.0)
--- NOTE | 2021-02-22 15:55 | RAD_ITS ---
STUDY: X-RAY CHEST REASON FOR EXAM: Female, 25 years old. chest pain TECHNIQUE: Single AP portable view of the chest. COMPARISON: 01/20/2020 FINDINGS: The lungs are clear and expanded. There is no demonstrated pleural abnormality. Normal size heart. Normal mediastinum and harmeet. Normal visualized pulmonary arteries. Normal visualized aortic arch and descending thoracic aorta. Normal visualized thoracic spine. Normal visualized ribs, clavicles, and shoulders. There is no demonstrated abnormality of the visualized soft tissue structures of the upper abdomen. RAD/Chest 1 View (Portable) IMPRESSION: Normal x-ray examination of the chest. Electronically Signed: Pool Albert MD at 16:41 EDT Tel , Service support ,
[2021-02-22 18:10] VITALS: BP 112/77
== END 2021-02-22 18:14 | disposition home or self-care (01) ==
PROVIDERS: Emergency Provider Emergency Medicine; PCP Internal Medicine
DX: R07.9 Chest pain, unspecified (principal); E11.9 Type 2 diabetes mellitus without complications; E66.9 Obesity, unspecified; K21.9 Gastro-esophageal reflux disease without esophagitis; F17.210 Nicotine dependence, cigarettes, uncomplicated; Z68.34 Body mass index [BMI] 34.0-34.9, adult; Z20.822 Contact with and (suspected) exposure to COVID-19; Z79.84 Long term (current) use of oral hypoglycemic drugs; Z79.899 Other long term (current) drug therapy
CPT/HCPCS: 71045; 80048; 84484; 85025; 87426; 93005; 99284; A4216